=== PATIENT | male | born 1940 | race Caucasian/White ===

== ENCOUNTER → 2018-04-24 | Outpatient (CLI) | payer OTHER, MEDICARE ==
[~2018-04-24] MED LIST: CHOL100010 PO; Ensure PO; LEVO75TA PO; MULTCHW PO; NUTRTAB55 PO; OMEG10007 PO; VITA400C28 PO
--- NOTE | 2018-04-24 09:12 | DIAGNOSTIC IMAGING REPORT ---
EXAMINATION: RENAL ULTRASOUND CLINICAL HISTORY: Renal insufficiency COMPARISON STUDY: None FINDINGS: The right kidney measures 9.4 cm. The left kidney measures 10.9 cm. There is no evidence of hydronephrosis. There are multiple left renal cysts the largest of which measures 4 cm. There are bilateral echogenic foci. Small calculi must be considered. No bladder abnormalities are visualized. Bilateral ureteral jets were visualized. IMPRESSION : 1. No evidence of hydronephrosis 2. Left renal cysts 3. Equivocal nephrolithiasis Electronically signed by: Brandon Gimenez M.D. 04/24/2018 9:11 AM Dictated Date/Time: 04/24/2018 9:09 AM
== END | disposition home or self-care (01) ==
LOC: C.ULTR 08:25
PROVIDERS: ATTEND Student in an Organized Health Care Education/Training Program
DX: R31.9 Hematuria, unspecified (principal); N28.1 Cyst of kidney, acquired; Z88.0 Allergy status to penicillin

== ENCOUNTER 2020-01-27 18:39 | Inpatient (IN) ==
[2020-01-27] MEDS ORDERED: CEFEPIME 2,000 MG/20 ML VIAL IV STA (19:19)
[2020-01-27] MEDS ORDERED: SODIUM CHLORIDE 0.9% 500 ML IV SCH (19:30)
--- NOTE | 2020-01-27 19:41 | Emergency Department Note ---
History of Present Illness General Chief complaint: Referred by Doctor Stated complaint: PSEUDOMONAS AERUGINOSA Time Seen by Provider: 01/27/20 19:12 Source: patient Mode of arrival: ambulatory Limitations: no limitations History of Present Illness Provider complaint: UTI Maximum Pain Intensity: 4 This is an 79-year-old male who presents to the ED with a chief complaint of urinary symptoms. The patient had an outpatient urinalysis that showed that he had resistant urine infection with Pseudomonas. I did not have access to the culture but the patient was sent here for IV cefepime, admission and then arrangements for him to you for IV cefepime. The patient denies any fevers or vomiting. He has no other symptoms at this time. Home Medications Home Medications Medication Instructions Recorded Confirmed Type aspirin 81 mg PO QAM 07/22/19 01/27/20 History cholecalciferol (vitamin D3) 1,000 unit PO QAM 07/22/19 01/27/20 History [Vitamin D3] cyanocobalamin (vitamin B-12) 0 mcg PO QAM 07/22/19 01/27/20 History [Vitamin B-12] glucos sul [id number]-C-Mn 1 cap PO QAM 07/22/19 01/27/20 History [Glucosamine Chondroitin] [id number] serr 1 tab PO QAM 07/22/19 01/27/20 History [Osteo Bi-Flex (5-Loxin)] levothyroxine 75 mcg PO QAM 07/22/19 01/27/20 History vitamin E 400 unit PO QAM 07/22/19 01/27/20 History Allergies Allergy/AdvReac Type Severity Reaction Status Date / Time Penicillins Allergy Mild . 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) UTI (urinary tract infection) (Acute) Family History Other Family history non-contributory Social History Preferred Language: Sami marital status: Current Living Situation: Alone current occupational status: retired Feels Safe at Home: Yes Smoking Status: Never smoker Review of Systems A total of 10 systems reviewed and were otherwise negative Physical Exam Vital Signs Vital Signs - 24 hr 01/27/20 18:46 01/27/20 19:11 01/27/20 21:00 Temperature 36.8 C Temperature Source Oral Pulse Rate 93 H 79 Pulse Rate [Apical] 72 Pulse Rate from SpO2 Sensor 79 Respiratory Rate 20 18 19 Respiratory Effort / Characteristics Non-Labored Spontaneous Respiratory Depth Normal Normal Blood Pressure 123/77 132/71 Blood Pressure [Right Arm] 142/72 H Blood Pressure Mean 92 81 Blood Pressure Mean [Right Arm] 95 Blood Pressure Position Sitting Pulse Oximetry 98 96 98 Oxygen Delivery Method Room Air Room Air Room Air Sepsis Recent Fever Within 48 Hours No Sepsis Action Taken by Nursing No Action Required CONSTITUTIONAL/VITAL SIGNS: Reviewed / noted above. GENERAL: Non-toxic in appearance. INTEGUMENTARY: Warm, dry, and [place]. HEAD: Normocephalic. EYES: without scleral icterus or trauma. ENT/OROPHARYNX: clear and moist. LYMPHADENOPATHY/NECK: Is supple without lymphadenopathy or meningismus. RESPIRATORY: Lungs clear and equal. CARDIOVASCULAR: Regular rate and rhythm. GI/ABDOMEN: Soft and nontender. No organomegaly or pulsatile mass. No rebound or guarding. Normal bowel sounds. EXTREMITIES: Warm and well perfused. BACK: No CVA tenderness. NEUROLOGICAL: Intact without focal deficits. PSYCHIATRIC: normal affect. MUSCULOSKELETAL: Normally developed with good muscle tone. TRIAGE NURSING DOCUMENTATION REVIEWED. Course Administered Medications Discontinued Medications Sodium Chloride (Nss) 500 mls @ 999 mls/hr IV .Q31M ANGELA Stop: 01/27/20 20:00 Last Infusion: 01/27/20 20:16 Dose: 0 mls/hr Documented by: [id number] Admin: 01/27/20 19:45 Dose: 999 mls/hr Documented by: [id number] Cefepime HCl (Maxipime) 2,000 mg in 20 mls @ 5 mls/min IV NOW STA; Protocol Stop: 01/27/20 19:22 Last Admin: 01/27/20 19:44 Dose: 5 mls/min Documented by: [id number] Medical Decision Making Differential Diagnosis Differential includes UTI, sepsis, appendicitis, diverticulitis, constipation, bacteremia Medical Records Attestation: I reviewed the patient's medical records. Home Medications Current Medication List: was personally reviewed by me Laboratory Data Attestation: I reviewed the patient's lab results. Result diagrams: 01/27/20 19:36 01/27/20 19:36 Lab Results 01/27/20 01/27/20 01/27/20 Range/Units 19:36 19:36 20:30 WBC 6.26 (4.8-10.8) K/uL RBC 3.55 L (4.7-6.1) M/uL Hgb 11.0 L (14.0-18.0) g/dL Hct 33.3 L (42-52) % MCV 93.8 (80-100) fL MCH 31.0 (25-34) pg MCHC 33.0 (32-36) g/dL RDW Std Deviation 49.7 H (36.4-46.3) fL RDW Coeff of Heidi 14.5 (11.5-14.5) % Plt Count 245 (130-400) K/uL MPV 10.5 H (7.4-10.4) fL Immature Gran % (Auto) 0.2 % Neut % (Auto) 64.7 % Lymph % (Auto) 24.3 % Mobile % (Auto) 8.1 % Eos % (Auto) 2.2 % Baso % (Auto) 0.5 % Immature Gran # (Auto) 0.01 (0.00-0.02) K/uL Neut # (Auto) 4.05 (1.4-6.5) K/uL Lymph # (Auto) 1.52 (1.2-3.4) K/uL Mobile # (Auto) 0.51 (0.11-0.59) K/uL Eos # (Auto) 0.14 (0-0.5) K/uL Baso # (Auto) 0.03 (0-0.2) K/uL Sodium 143 (136-145) mmol/L Potassium 4.1 (3.5-5.1) mmol/L Chloride 111 H (98-107) mmol/L Carbon Dioxide 27 (21-32) mmol/L Anion Gap 5.0 (3-11) BUN 40 H (7-18) mg/dl Creatinine 1.22 (0.6-1.4) mg/dl Est Cr Clr Drug Dosing 43.6 ml/min Est GFR ( Amer) 64.5 Est GFR (Non-Af Amer) 55.6 BUN/Creatinine Ratio 32.7 H (10-20) Glucose 108 H (70-99) mg/dl Calcium 9.3 (8.5-10.1) mg/dl Total Bilirubin 0.8 (0.2-1) mg/dl AST 10 L (15-37) U/L ALT 15 (12-78) U/L Alkaline Phosphatase 76 (45-117) U/L Total Protein 6.9 (6.4-8.2) gm/dl Albumin 3.6 (3.4-5.0) gm/dl Globulin 3.3 (2.5-4.0) gm/dl Albumin/Globulin Ratio 1.1 (0.9-2) Lipase 163 (73-393) U/L Urine Color Yellow Urine Appearance Clear (Clear) Urine pH 5.0 (4.5-7.5) Ur Specific [place] 1.023 (1.000-1.030) Urine Protein Negative (Negative) Urine Glucose (UA) Negative (Negative) Urine Ketones Negative (Negative) Urine Blood Trace H (Negative) Urine Nitrite Negative (Negative) Urine Bilirubin Negative (Negative) Urine Urobilinogen Negative (Negative) Ur Leukocyte Esterase 2+ H (Negative) Urine WBC (Auto) >30 H (0-5) /hpf Urine RBC (Auto) 0-4 (0-4) /hpf U Hyaline Cast (Auto) 5-10 H (0-5) /lpf U Epithel Cells (Auto) 0-5 (0-5) /lpf Urine Bacteria (Auto) Negative (Negative) Blood Pressure Blood Pressure Findings: Normal blood pressure MDM Narrative This is an 79-year-old male who presents to the ED with a chief complaint of urinary symptoms. The patient had an outpatient urinalysis that showed that he had resistant urine infection with Pseudomonas. I did not have access to the culture but the patient was sent here for IV cefepime, admission and then arrangements for him to you for IV cefepime. The patient denies any fevers or vomiting. He has no other symptoms at this time. Patient's vital signs are normal. His exam was unremarkable. The patient CBC and chemistry panel was unremarkable. The BUN was elevated at 40. Urine is suggestive of infection. The patient was started on IV cefepime. He was also given some IV fluids. He will be seen by the hospitalist for further inpatient evaluation and care. Impression & Plan Acute UTI Discharge Plan Visit Data Chief Complaint: Referred by Doctor Stated Complaint: PSEUDOMONAS AERUGINOSA ED Provider: Ruslan Sky Discharge Problem: Acute UTI Patient Disposition: Being Evaluated by Hospitalist Forms Stand Alone Forms: [facility] Prescriptions Prescriptions: No Action cyanocobalamin (vitamin B-12) [Vitamin B-12] 1,000 mcg Tablet Extended Release 0 mcg PO QAM RF: 0 aspirin 81 mg Tablet,Delayed Release (Dr/Ec) 81 mg PO QAM RF: 0 levothyroxine 75 mcg tablet 75 mcg PO QAM RF: 0 vitamin E 400 unit Capsule 400 unit PO QAM RF: 0 cholecalciferol (vitamin D3) [Vitamin D3] 1,000 unit Capsule 1,000 unit PO QAM RF: 0 [id number] serr [Osteo Bi-Flex (5-Loxin)] 1,500-400-100 mg-unit-mg Tablet 1 tab PO QAM RF: 0 Glucosamine Chondroitin 550-30-1 mg Capsule 1 cap PO QAM RF: 0 Referrals Referrals: Saulo Pan MD [Primary Care Provider] -
[2020-01-27 20:02] LABS: Basophils # (auto) 0.03 K/uL (0-0.2); Basophils % (auto) 0.5 %; Eosinophils # (auto) 0.14 K/uL (0-0.5); Eosinophils % (auto) 2.2 %; Hematocrit (blood only) 33.3 % (42-52); Immature Granulocytes # (auto) 0.01 K/uL (0.00-0.02); Immature Granulocytes % (auto) 0.2 %; Lymphocytes # (auto) 1.52 K/uL (1.2-3.4); Lymphocytes % (auto) 24.3 %; Mean Corpuscular Volume 93.8 fL (80-100); Mean Platelet Volume 10.5 fL (7.4-10.4); Monocytes # (auto) 0.51 K/uL (0.11-0.59); Monocytes % (auto) 8.1 %; Neutrophils # (auto) 4.05 K/uL (1.4-6.5); Neutrophils % (auto) 64.7 %; Platelet Count 245 K/uL (130-400); RDW Coefficient of Variation 14.5 % (11.5-14.5); RDW Standard Deviation 49.7 fL (36.4-46.3); Red Blood Count 3.55 M/uL (4.7-6.1); White Blood Count 6.26 K/uL (4.8-10.8)
[2020-01-27 20:21] LABS: Albumin Level 3.6 gm/dl (3.4-5.0); BUN Creatinine Ratio 32.7 (10-20); Calcium 9.3 mg/dl (8.5-10.1); Creatinine Clr Calc Pharmacy 43.6 ml/min; Est GFR (African American) 64.5; Est GFR (Non-African American) 55.6; Potassium 4.1 mmol/L (3.5-5.1)
[2020-01-27 20:24] LABS: Albumin Globulin Ratio 1.1 (0.9-2); Bilirubin,Total 0.8 mg/dl (0.2-1); Globulin 3.3 gm/dl (2.5-4.0); Total Protein 6.9 gm/dl (6.4-8.2)
[2020-01-27 20:43] LABS: Appearance Urine Clear (Clear); Bacteria Urine Automated Negative (Negative); Bilirubin Urine Negative (Negative); Blood Urine Trace (Negative); Color Urine Yellow; Epithelial Cell Urine Auto 0-5 /lpf (0-5); Glucose Urine UA Negative (Negative); Ketones Urine Negative (Negative); Leukocyte Esterase Urine 2+ (Negative); Nitrite Urine Negative (Negative); Protein Urine Negative (Negative); RBC Urine Automated 0-4 /hpf (0-4); Specific Gravity Urine 1.023 (1.000-1.030); Urobilinogen Urine Negative (Negative); WBC Urine Automated >30 /hpf (0-5)
--- NOTE | 2020-01-27 22:53 | History & Physical Report ---
Date of Service January 27, 2020 Assessment & Plan (1) Hypertension: Arnulfo Modi is an 79 year old man with a PMH of kidney stones and pseudomonas UTI's who presents with a pseudomonas UTI UTI Pseudomonas resistant to levaquin has been treated with cefipime in the past Likely secondary to stones and obstructions that he's dealt with for some time. Will re image abdomen today Will continue cefipime 2 g BID Consented for PICC line, BID administration of cefepime could prove challenging but hopefully can get administrations in ED or through home health at home Case management consulted Dehydration Elevated BUN, patient dry on examination Likely secondary to diarrhea and decreased PO intake will give IV fluids to help rehydrate DVT PPx: Lovenox F/E/N: 1/2 nSS at 80 mls hour Dispo: Med Surg for tonight WIll need to have PICC line and outpatient antibiotic administration organized prior to discharge hopefully tomorrow (2) UTI (urinary tract infection): (3) Diarrhea: (4) Dehydration: History of Present Illness Chief Complaint: Sent from PCP's office Primary Care Provider: Saulo Pan MD Arnulfo Modi is an 79 year old man with a past medical history significant for head an neck cancer, constipation, recurrent kidney stones, and complicated UTI with pseudomonas resistant to levaquin. He was seeing his PCP about back pain and weakness fatigue. PCP ordered a UA which was positive and urine culture which showed pseudomonas resistant to levaquin. He was advised to present to emergency department for IV cefepime. He reticently agreed. On presentation to ED he is afebrile, vitals WNL, he feels weak and he has some discomfort with urination, urine culture re ordered, no flank pain at this time. He tells me when he first felt off he initially thought it was constipation which he has had in the past, but then he started to develop some diarrhea which has continued to the point where he is not continent. He is currently wearing a diaper. He denies any blood/melena or abdominal pain He feels this may be getting better. Labwork significant for anemia with hemoglobin of 11, Elevated BUN with normal creatinine and positive UA. Adamant that he wants to get out of here as soon as possible. Will need help arranging outpatient antibiotic administration. He has had a PICC line in past and had treatment [facility]. 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 Allergies Allergy/AdvReac Type Severity Reaction Status Date / Time Penicillins Allergy Mild . Verified 01/27/20 20:27 Home Medications Home Medications Medication Instructions Recorded Confirmed Type Glucosamine Chondroitin 1 cap PO QAM 07/22/19 01/27/20 History cholecalciferol (vitamin D3) 1,000 unit PO QAM 07/22/19 01/27/20 History [Vitamin D3] cyanocobalamin (vitamin B-12) 0 mcg PO QAM 07/22/19 01/27/20 History [Vitamin B-12] [id number] serr 1 tab PO QAM 07/22/19 01/27/20 History [Osteo Bi-Flex (5-Loxin)] levothyroxine 75 mcg PO QAM 07/22/19 01/27/20 History vitamin E 400 unit PO QAM 07/22/19 01/27/20 History ciprofloxacin HCl 500 mg PO BID #14 tab 01/28/20 Rx metronidazole 500 mg PO TID #21 tab 01/28/20 Rx Past Med/Surg History Medical History 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) UTI (urinary tract infection) (Acute) Family History Other Family history non-contributory Social History Preferred Language: Burmese Communication Ability: Effective Nailhead Puncher Required: No Beliefs That Will Affect Care: None marital status: Current Living Situation: Alone current occupational status: retired Other Information That Helps Us Care for You: No Feels Safe at Home: Yes Safety Concerns: Feels Safe At This Time Smoking Status: Never smoker Do You Dip or Chew Tobacco: No ; Second Hand Exposure: No ; Tobacco Cessation Education Requested by Patient: No Hx Alcohol Use: No Hx Substance Use: No Review of Systems Constitutional: + fatigue, + weakness and + anorexia; no fever, no chills, no sweats and no body aches Eyes: no problem reported Ear, Nose, Mouth, Throat: no problem reported Respiratory: no cough, no chest congestion, no dyspnea and no wheezing Cardiovascular: no chest pain, no dyspnea, no palpitations, no lightheadedness, no syncope, no edema and no calf pain Gastrointestinal: + diarrhea/loose stools; no abdominal pain, no nausea, no vomiting, no blood in stools and no melena Genitourinary: + dysuria and + urinary frequency Musculoskeletal: + back pain Physical Exam Constitutional: well developed; no acute distress Eyes: PERRL, conjunctivae normal, anicteric sclerae ENMT: external ear and nose normal, oropharynx normal Respiratory: normal respiratory effort, lungs clear to auscultation Cardiovascular: RRR, no murmur, no edema Gastrointestinal (Abdomen): normal bowel sounds, soft, nontender, no hepatosplenomegaly Musculoskeletal: no cyanosis or clubbing, extremities motor strength 5/5 Skin: no rashes, warm and dry Results & Data Results & Data ([facility]) Vital Signs (Past 12 Hours) Vital Signs Temp Pulse Pulse Resp BP BP Pulse Ox 01/27/20 21:00 72 19 142/72 H 98 01/27/20 19:11 79 18 132/71 96 01/27/20 18:46 36.8 C 93 H 20 123/77 98 Supervising Physician Co-Signing Physician Notes Attending addendum: I have physically seen this patient, have supervised the medical residents activities, and agree with the H&P unless as otherwise noted. Assessment and Plan: Recurrent Pseudomonas UTI- Reportedly had been resistant to Levaquin in the past and had been treated with cefepime. Attempting to get previous records but unavailable at this time. Follow urine culture sensitivity. IV fluids. PICC line Imaging to assess for possible abscess. Remainder of orders and notations as noted. Resident Activity Tracking Resident Involvement: Resident Care Provided Care Provided: Adult [facility] Medicine
[2020-01-27] MEDS ORDERED: ACETAMINOPHEN 325 MG TAB PO PRN (23:31)
[2020-01-27] MEDS ORDERED: ALUMINUM/MAGNESIUM SUSP 30 ML UDC PO PRN (23:31)
[2020-01-27] MEDS ORDERED: ONDANSETRON INJ 2 MG/ML 2 ML VIAL IV PRN (23:31)
[2020-01-27] MEDS ORDERED: POLYETHYLENE (MIRALAX) 17 GM PACK PO PRN (23:31)
[2020-01-28] MEDS: SODIUM CHLORIDE 0.9% 1000ML 1,000 ML IV SCH ×2 (00:10→05:49)
[2020-01-28] MEDS ORDERED: LEVOTHYROXINE SODIUM 75 MCG TABLET PO SCH (06:30)
[2020-01-28] MEDS ORDERED: CEFEPIME 2,000 MG in SYRINGE 7.5 ML IV SCH (08:00)
[2020-01-28] MEDS ORDERED: GLUCOSAMINE D3 BOSWELLIA SERR PO SCH (09:00)
[2020-01-28] MEDS ORDERED: GLUCOSAMINE SULFATE 500 MG CAP PO SCH (09:00)
[2020-01-28] MEDS ORDERED: TOCOPHERYL, DL-ALPHA 400 UNITS CAP PO SCH (09:00)
[2020-01-28] MEDS ORDERED: CHOLECALCIFEROL 1,000 UNITS 25 MCG TAB PO SCH (09:00)
[2020-01-28] MEDS ORDERED: ASPIRIN 81 MG ECTAB PO SCH (09:00)
--- NOTE | 2020-01-28 09:50 | CT Scan Report ---
CT SCAN OF THE ABDOMEN AND PELVIS WITHOUT CONTRAST CLINICAL HISTORY: uti with back pain, history of stones COMPARISON STUDY: No previous studies for comparison. TECHNIQUE: CT scan of the abdomen and pelvis was performed from the lung bases to the proximal femurs . Images are reviewed in the axial, sagittal, and coronal planes. IV contrast was not administered fo r this examination. A dose lowering technique was utilized adhering to the principles of ALARA. CT DOSE: 536.94 mGycm FINDINGS: Lower chest: There is mild dilatation of the ascending thoracic aorta which measures 44 mm. There are mild dependent atelectatic changes. Liver: The unenhanced liver is normal in size, contour, and attenuation. There is no intrahepatic ad iary ductal dilatation. Gallbladder: Cholelithiasis Spleen: Normal in size and attenuation. Pancreas: Unremarkable. Adrenal glands: Unremarkable. Kidneys: There are multiple bilateral nonobstructing renal calculi. There is a 47 mm left renal cyst. There is a 24 mm left renal cyst. There is a 7 mm hyperdense left renal cyst. No ureteral or bladder calculi are visualized. Bowel: There are no transition zones to indicate bowel obstruction. There is moderate stool within th e rectum, with minimal associated rectal wall thickening.. There is colonic diverticulosis. There is mild infiltration of peridiverticular fat within the sigmoid indicative of acute diverticulitis. Peritoneum: There is no intraperitoneal free air or abdominal ascites. There is a fat-containing righ t inguinal hernia. There is a small fat-containing umbilical hernia. Vasculature: The abdominal aorta is normal in course and caliber. There is a retroaortic left renal v ein Adenopathy: None. Pelvic viscera: The bladder, and pelvic viscera are unremarkable. Skeletal structures: No destructive osseous lesions are seen. IMPRESSION: 1. Acute sigmoid diverticulitis. No evidence of abscess. This finding will be called to the referring physician. 2. Bilateral nephrolithiasis. No hydronephrosis. No ureteral or bladder calculi identified. ACT 112: Negative or not required by law. Electronically signed by: Brandon Gimenez M.D. 01/28/2020 9:49 AM
[2020-01-28] MEDS ORDERED: metroNIDAZOLE 500 MG/100 ML BAG IV SCH (11:00)
[2020-01-28 11:25] LABS: Basophils # (auto) 0.03 K/uL (0-0.2); Basophils % (auto) 0.4 %; Eosinophils # (auto) 0.11 K/uL (0-0.5); Eosinophils % (auto) 1.6 %; Hemoglobin 10.1 g/dL (14.0-18.0); Immature Granulocytes # (auto) 0.01 K/uL (0.00-0.02); Immature Granulocytes % (auto) 0.1 %; Lymphocytes # (auto) 0.99 K/uL (1.2-3.4); Lymphocytes % (auto) 14.1 %; Mean Corpuscular Hemoglobin 30.9 pg (25-34); Mean Corpuscular Hgb Conc 32.6 g/dL (32-36); Mean Corpuscular Volume 94.8 fL (80-100); Mean Platelet Volume 10.4 fL (7.4-10.4); Monocytes # (auto) 0.81 K/uL (0.11-0.59); Monocytes % (auto) 11.5 %; Neutrophils # (auto) 5.08 K/uL (1.4-6.5); Neutrophils % (auto) 72.3 %; Platelet Count 207 K/uL (130-400); RDW Coefficient of Variation 14.6 % (11.5-14.5); RDW Standard Deviation 50.1 fL (36.4-46.3); Red Blood Count 3.27 M/uL (4.7-6.1); White Blood Count 7.03 K/uL (4.8-10.8)
[2020-01-28 11:47] LABS: Calcium 8.8 mg/dl (8.5-10.1); Creatinine Clr Calc Pharmacy 51.6 ml/min; Est GFR (African American) 79.1; Est GFR (Non-African American) 68.3; Potassium 4.1 mmol/L (3.5-5.1)
[2020-01-28] MEDS ORDERED: CIPROFLOXACIN / D5W 400 MG/200 ML BAG IV SCH (13:00)
--- NOTE | 2020-01-28 14:12 | Discharge Summary ---
Date of Service January 28, 2020 Admission HPI Per Admitting Provider Arnulfo Modi is an 79 year old man with a past medical history significant for head an neck cancer, constipation, recurrent kidney stones, and complicated UTI with pseudomonas resistant to levaquin. He was seeing his PCP about back pain and weakness fatigue. PCP ordered a UA which was positive and urine culture which showed pseudomonas resistant to levaquin. He was advised to present to emergency department for IV cefepime. He reticently agreed. On presentation to ED he is afebrile, vitals WNL, he feels weak and he has some discomfort with urination, urine culture re ordered, no flank pain at this time. He tells me when he first felt off he initially thought it was constipation which he has had in the past, but then he started to develop some diarrhea which has continued to the point where he is not continent. He is currently wearing a diaper. He denies any blood/melena or abdominal pain He feels this may be getting better. Labwork significant for anemia with hemoglobin of 11, Elevated BUN with normal creatinine and positive UA. Adamant that he wants to get out of here as soon as possible. Will need help arranging outpatient antibiotic administration. He has had a PICC line in past and had treatment [facility]. 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 Principal Diagnosis Acute diverticulitis Discharge Exam Constitutional WD/WN, vitals as above Respiratory normal respiratory effort, lungs clear to auscultation Cardiovascular RRR, no murmur, no edema Gastrointestinal (Abdomen) Inspection/Auscultation: abdomen normal to inspection and normal bowel sounds; abdomen not distended Percussion/Palpation: abdomen soft; abdomen nontender Musculoskeletal no cyanosis or clubbing, extremities motor strength 5/5 Skin no rashes, warm and dry Neurologic moves all extremities and awake Psychiatric A+Ox3, euthymic affect Discharge Data Allergies Allergy/AdvReac Type Severity Reaction Status Date / Time Penicillins Allergy Mild . Verified 01/27/20 20:27 Consultations 01/27/20 20:56 ED Decision to Admit Stat 01/27/20 23:31 Consult Case Management - Discharge Planning Routine Ordered Studies 01/28/20 09:30 CT abd pelvis wo con Routine Hospital Course (1) Acute diverticulitis: As seen on CT - acute sigmoid diverticulitis. No evidence of abscess. Will start on metronidazole and ciprofloxaxin for a total of 7 days Patient is pretty adamant that he get home today and that he does not want to stay in the hospital another night. He is concerned about exposure to COVID here in the hospital. I think given that he is afebrile, has no leukocytosis, and no abdominal pain that being treated at home is reasonable. I would like him to see his doctor within the next couple of days for close follow up (2) Dehydration: Provided IVF, BUN improved (3) Asymptomatic bacteriuria: Though patient grew pseudomonas in his urine at his pcp's office, and is growing gram negative here, I believe this represents asymptomatic bacteriuria. He does not particularly have urinary symptoms - no burning or pain with urination or hesitancy. His abdominal symptoms of vague pressure can be attributed to his diverticulitis. I do not think this needs to be treated. Per patient, he is a known colonizer of pseudomonas and has been to see a urologist in [place] in the past. (4) Dark stools: Patient reported but he has been mostly constipated until the last couple of days when it changed to diarrhea. He does take iron which could be discoloring his stool Please see below (5) Anemia: Unclear source, as discussed above he has been having dark stools but he takes iron supplementation Hold aspirin and iron for now Blood count decreased by a gram since yesterday to 10, but this may be dilutional as he received IVF. His MCV is high normal He should recheck his blood count with his pcp at his follow up visit Total Time Total Time Spent Total Time Spent (In Minutes): greater than 30 minutes Discharge Plan Discharge Items Patient Disposition: Home - Self-Care Reason For Visit: PSEUDOMONAS UTI Discharge Diagnosis: Acute diverticulitis Activity: Resume your previous activity Non-emergency contact: Primary Care Provider Call non-emergency contact if: you have any medication questions Follow-up/Referrals: Saulo Pan MD [Primary Care Provider] - (Close follow up - please schedule Sunday if possible ) Diet: Regular Addtl Attending Provider Instructions: A CT of your abdomen showed that you have acute sigmoid colon diverticulitis. Initially there was concern for a urinary tract infection but at this point I think your symptoms are due to your bowel infection and that you are a pseudomonas colonizer in your urinary tract rather than experiencing a true infection there. The CT of your abdomen and pelvis did not show any inflammation in your urinary tract. You will take ciprofloxacin and metronidazole for the diverticulitis for seven days. You may want to eat a liquid diet for the next couple of days until your symptoms have resolved and then slowly advance to a high fiber diet. Make sure you are drinking plenty of fluids Please hold your aspirin and iron supplements until you follow up with your primary care provider. The iron may be causing your stools to darken. If the dark stools persist after this your doctor may want you to see a healthcare liaison to assess for bleeding. Your blood count only decreased minimally here at the hospital. Discuss rechecking your hemoglobin with your doctor. If you begin to have more frequent stools or stools appear tarry or frankly bloody please call your doctor right away. If you begin running a fever, have increased abdominal pain or vomiting or are feeling worse you should call your doctor or return to the emergency room. You should follow up with Dr. Pan this week if possible. Pending Studies at Discharge: No Stand-Alone Forms: My [facility] Hers, Smoking Cessation Medications and DC Order Prescriptions: New ciprofloxacin HCl 500 mg tablet 500 mg PO BID Qty: 14 RF: 0 metronidazole 500 mg tablet 500 mg PO TID Qty: 21 RF: 0 Continued cyanocobalamin (vitamin B-12) [Vitamin B-12] 1,000 mcg Tablet Extended Release 0 mcg PO QAM RF: 0 levothyroxine 75 mcg tablet 75 mcg PO QAM RF: 0 vitamin E 400 unit Capsule 400 unit PO QAM RF: 0 cholecalciferol (vitamin D3) [Vitamin D3] 1,000 unit Capsule 1,000 unit PO QAM RF: 0 [id number] serr [Osteo Bi-Flex (5-Loxin)] 1,500-400-100 mg-unit-mg Tablet 1 tab PO QAM RF: 0 Glucosamine Chondroitin 550-30-1 mg Capsule 1 cap PO QAM RF: 0 Discontinued aspirin 81 mg Tablet,Delayed Release (Dr/Ec) 81 mg PO QAM RF: 0 Discharge Orders: Discharge Order (Routine); Ordered 01/28/20 Ordered By: Molly Ware/Other Patient Handouts: Diverticulosis Diverticulitis Admission Data Admit Date/Time: 01/27/20 21:46 Attending Provider: Toni Feldman Admit Provider: Richy Forman Primary Care Provider: Saulo Pan Other Providers: Toni Feldman ; Phoebe,Sydnix Coding Level of Care Code D/C Day Management >30 mins Diagnoses Acute diverticulitis K57.92 Dehydration E86.0 Asymptomatic bacteriuria R82.71 Dark stools R19.5 Anemia D64.9
--- NOTE | 2020-01-29 01:18 | Billing Data ---
Date of Service January 29, 2020 Coding Level of Care Code 26346 OBS Care - Level 3
== END 2020-01-28 16:00 | disposition home or self-care (01) | DRG 392 ==
LOC: ED 18:39 → SUATTDRO 21:46 → 3N 21:46

== ENCOUNTER 2021-07-08 16:22 | Inpatient (IN) ==
[2021-07-08 19:33] LABS: Basophils # (auto) 0.03 K/uL (0-0.2); Basophils % (auto) 0.5 %; Eosinophils # (auto) 0.18 K/uL (0-0.5); Eosinophils % (auto) 3.1 %; Hematocrit (blood only) 43.1 % (42-52); Hemoglobin 14.3 g/dL (14.0-18.0); Immature Granulocytes # (auto) 0.01 K/uL (0.00-0.02); Immature Granulocytes % (auto) 0.2 %; Lymphocytes % (auto) 27.8 %; Mean Corpuscular Hemoglobin 30.8 pg (25-34); Mean Corpuscular Hgb Conc 33.2 g/dL (32-36); Mean Corpuscular Volume 92.9 fL (80-100); Mean Platelet Volume 10.2 fL (7.4-10.4); Monocytes # (auto) 0.63 K/uL (0.11-0.59); Neutrophils % (auto) 57.4 %; Platelet Count 248 K/uL (130-400); RDW Coefficient of Variation 14.6 % (11.5-14.5); RDW Standard Deviation 49.6 fL (36.4-46.3); Red Blood Count 4.64 M/uL (4.7-6.1); White Blood Count 5.75 K/uL (4.8-10.8)
[2021-07-08] MEDS ORDERED: MEROPENEM CONSULT ACTIVE PRN (19:42)
[2021-07-08] MEDS ORDERED: SODIUM CHLORIDE 0.9% 1000ML 500 ML IV ONE (19:42)
[2021-07-08] MEDS ORDERED: MEROPENEM 500 MG in SYRINGE 0 ML IV STA (19:42)
--- NOTE | 2021-07-08 19:47 | Emergency Department Note ---
Impression & Plan Acute left flank pain, Acute pyelonephritis, Failure of outpatient treatment ED Provider Note NAME: RANDY CASAS AGE: 81 SEX: M : 1940 ARRIVES VIA: Walk-In INFORMANT: [Patient] ED PROVIDER(S): [Alfred Bonilla MD] CHIEF COMPLAINT: Abnormal labs HISTORY OF PRESENT ILLNESS: The patient is an 81-year-old male who recently has been having issues with a urinary infection. He has been on IV cefepime 2 times in the last month for a resistant UTI. He is growing Pseudomonas. The patient states that he had urine testing done in his doctor's office about 3 days ago. He was called today and he still has the infection. He was referred to the ER. Patient has had some intermittent left flank pain. The pain is a 5/10. He does have urgency to urinate, no burning to urinate. He has not had fever or vomiting. He has not really have any abdominal pain. He is here for a different IV antibiotic. REVIEW OF SYSTEMS: See HPI for pertinent positives and negatives. A total of ten systems were reviewed and were otherwise negative. PMHx/PSHx: See Below SOCIAL HISTORY: See Below. PHYSICAL EXAM: GENERAL: Patient is in no acute distress. HEENT: No acute trauma, normocephalic atraumatic, mucous membranes moist, no nasal congestion, no scleral icterus. NECK: No stridor, no adenopathy, no meningismus, trachea is midline. LUNGS: Clear to auscultation bilaterally, no wheeze, no rhonchi, breath sounds equal. HEART: Without murmurs gallops or rubs, regular rate and rhythm. ABDOMEN: Soft, nontender, bowel sounds positive, no hernias, no peritonitis. EXTREMITIES: No cyanosis or edema, full range of motion of all the joints without pain or difficulty, no signs for acute trauma. NEUROLOGIC: Oriented x 3, no acute motor or sensory deficits, no focal weakness. SKIN: No rash, no jaundice, no diaphoresis. Back: No flank discomfort to percussion. DIFFERENTIAL DIAGNOSIS: Pyelonephritis, UTI, hydronephrosis, renal colic, urinary obstruction, renal failure, electrolyte imbalance, dehydration, failed outpatient treatment, among others. EMERGENCY DEPARTMENT COURSE/PROCEDURES: MEDICAL DECISION MAKING: There is no leukocytosis or concerning anemia. There is a normal platelet count. No significant electrolyte abnormality or kidney failure. Alk phos was slightly elevated, the bilirubin was normal. Urinalysis does suggest infection. Covid testing is pending. Abdominal and pelvis CT shows some stones within the kidneys themselves, no ureteral obstruction, no hydronephrosis, no bowel obstruction. The patient received IV meropenem as antibiotic coverage. This should be sufficient to treat the UTI based on the culture results from last month. The patient was given a 500 cc saline bolus. Patient presents with a persistent/recurrent UTI/pyelonephritis. He is having some left flank pain. He has been on 2 IV courses of cefepime. At this point, I do think a hospital stay is warranted. I did speak with the patient and residential case manager. The on-call hospitalist was consulted. Past Med/Surg History Medical History Head and neck cancer Kidney stone on left side Primary head and neck soft tissue sarcoma UTI (urinary tract infection) Family History Other Family history non-contributory Social History Smoking Status: Never smoker Tobacco Type: Cigarettes Second Hand Exposure: No; Hx Alcohol Use: No Hx Substance Use: No Preferred Language: Azeri Communication Ability: Effective Genetics Teacher Required: No Beliefs That Will Affect Care: None marital status: Current Living Situation: Alone current occupational status: retired Feels Safe at Home: Yes Assistive Devices: Glasses Allergies Allergies Allergy/AdvReac Type Severity Reaction Status Date / Time Penicillins Allergy Mild . Verified 07/08/21 20:49 Home Meds Home Medications Medication Instructions Recorded Confirmed levothyroxine 112 mcg tablet 112 mcg PO DAILY 07/08/21 07/08/21 Results & Data (ED) Vital Signs Vital Signs - 24 hr 07/08/21 17:01 07/08/21 20:59 Temperature 36.7 C Temperature Source Oral Pulse Rate 74 Pulse Rate [Finger] 66 Respiratory Rate 20 18 Respiratory Effort / Characteristics Non-Labored Spontaneous Non-Labored Spontaneous Respiratory Depth Normal Normal Respiratory Pattern Regular Blood Pressure 177/71 H Blood Pressure [Right Arm] 188/85 H Blood Pressure Mean 106 Blood Pressure Mean [Right Arm] 119 Pulse Oximetry 97 97 Oxygen Delivery Method Room Air Room Air Sepsis Recent Fever Within 48 Hours No Sepsis New/Unexplained Change in Mental Status N/A Sepsis Action Taken by Nursing No Action Required Home Medications Current Medication List: was personally reviewed by me Laboratory Data Attestation: I reviewed the patient's lab results. Result diagrams: 07/08/21 19:22 07/08/21 19:22 Lab Results 07/08/21 07/08/21 07/08/21 Range/Units 19:22 19:22 19:49 WBC 5.75 (4.8-10.8) K/uL RBC 4.64 L (4.7-6.1) M/uL Hgb 14.3 (14.0-18.0) g/dL Hct 43.1 (42-52) % MCV 92.9 (80-100) fL MCH 30.8 (25-34) pg MCHC 33.2 (32-36) g/dL RDW Std Deviation 49.6 H (36.4-46.3) fL RDW Coeff of Heidi 14.6 H (11.5-14.5) % Plt Count 248 (130-400) K/uL MPV 10.2 (7.4-10.4) fL Immature Gran % (Auto) 0.2 % Neut % (Auto) 57.4 % Lymph % (Auto) 27.8 % [place] % (Auto) 11.0 % Eos % (Auto) 3.1 % Baso % (Auto) 0.5 % Neut # (Auto) 3.30 (1.4-6.5) K/uL Lymph # (Auto) 1.60 (1.2-3.4) K/uL [place] # (Auto) 0.63 H (0.11-0.59) K/uL Eos # (Auto) 0.18 (0-0.5) K/uL Baso # (Auto) 0.03 (0-0.2) K/uL Immature Gran # (Auto) 0.01 (0.00-0.02) K/uL Sodium 138 (136-145) mmol/L Potassium 4.3 (3.5-5.1) mmol/L Chloride 105 (98-107) mmol/L Carbon Dioxide 29 (21-32) mmol/L Anion Gap 4.0 (3-11) BUN 18 (7-18) mg/dl Creatinine 1.22 (0.6-1.4) mg/dl Est Cr Clr Drug Dosing 45.8 ml/min Est GFR ( Amer) 63.6 ml/min Est GFR (Non-Af Amer) 54.9 ml/min BUN/Creatinine Ratio 15.1 (10-20) Glucose 73 (70-99) mg/dl Calcium 9.4 (8.5-10.1) mg/dl Total Bilirubin 0.9 (0.2-1) mg/dl AST 14 L (15-37) U/L ALT 13 (12-78) U/L Alkaline Phosphatase 134 H (45-117) U/L Total Protein 7.6 (6.4-8.2) gm/dl Albumin 3.9 (3.4-5.0) gm/dl Globulin 3.7 (2.5-4.0) gm/dl Albumin/Globulin Ratio 1.1 (0.9-2) Urine Color Yellow Urine Appearance Clear (Clear) Urine pH 6.0 (4.5-7.5) Ur Specific [place] 1.018 (1.000-1.030) Urine Protein Negative (Negative) Urine Glucose (UA) Negative (Negative) Urine Ketones Negative (Negative) Urine Blood Negative (Negative) Urine Nitrite Positive A (Negative) Urine Bilirubin Negative (Negative) Urine Urobilinogen Negative (Negative) Ur Leukocyte Esterase 1+ H (Negative) Urine WBC (Auto) >30 H (0-5) /hpf Urine RBC (Auto) 0-4 (0-4) /hpf U Hyaline Cast (Auto) 10-30 H (0-5) /lpf U Epithel Cells (Auto) 0-5 (0-5) /lpf Urine Bacteria (Auto) 2+ H (Negative) COVID-19 Eval Order 07/08/21 Range/Units 23:49 WBC (4.8-10.8) K/uL RBC (4.7-6.1) M/uL Hgb (14.0-18.0) g/dL Hct (42-52) % MCV (80-100) fL MCH (25-34) pg MCHC (32-36) g/dL RDW Std Deviation (36.4-46.3) fL RDW Coeff of Heidi (11.5-14.5) % Plt Count (130-400) K/uL MPV (7.4-10.4) fL Immature Gran % (Auto) % Neut % (Auto) % Lymph % (Auto) % [place] % (Auto) % Eos % (Auto) % Baso % (Auto) % Neut # (Auto) (1.4-6.5) K/uL Lymph # (Auto) (1.2-3.4) K/uL [place] # (Auto) (0.11-0.59) K/uL Eos # (Auto) (0-0.5) K/uL Baso # (Auto) (0-0.2) K/uL Immature Gran # (Auto) (0.00-0.02) K/uL Sodium (136-145) mmol/L Potassium (3.5-5.1) mmol/L Chloride (98-107) mmol/L Carbon Dioxide (21-32) mmol/L Anion Gap (3-11) BUN (7-18) mg/dl Creatinine (0.6-1.4) mg/dl Est Cr Clr Drug Dosing ml/min Est GFR ( Amer) ml/min Est GFR (Non-Af Amer) ml/min BUN/Creatinine Ratio (10-20) Glucose (70-99) mg/dl Calcium (8.5-10.1) mg/dl Total Bilirubin (0.2-1) mg/dl AST (15-37) U/L ALT (12-78) U/L Alkaline Phosphatase (45-117) U/L Total Protein (6.4-8.2) gm/dl Albumin (3.4-5.0) gm/dl Globulin (2.5-4.0) gm/dl Albumin/Globulin Ratio (0.9-2) Urine Color Urine Appearance (Clear) Urine pH (4.5-7.5) Ur Specific [place] (1.000-1.030) Urine Protein (Negative) Urine Glucose (UA) (Negative) Urine Ketones (Negative) Urine Blood (Negative) Urine Nitrite (Negative) Urine Bilirubin (Negative) Urine Urobilinogen (Negative) Ur Leukocyte Esterase (Negative) Urine WBC (Auto) (0-5) /hpf Urine RBC (Auto) (0-4) /hpf U Hyaline Cast (Auto) (0-5) /lpf U Epithel Cells (Auto) (0-5) /lpf Urine Bacteria (Auto) (Negative) COVID-19 Eval Order Covid19 at [facility] Administered Medications Discontinued Medications Sodium Chloride (Nss 1000ml) 500 mls @ 999 mls/hr IV .Q31M ONE Stop: 07/08/21 20:12 Last Infusion: 07/08/21 21:43 Dose: 0 mls/hr Documented by: [id number] Admin: 07/08/21 21:07 Dose: 999 mls/hr Documented by: [id number] Meropenem 500 mg/ Syringe 10 mls @ 2 mls/min IV NOW STA; Protocol Stop: 07/08/21 19:46 Last Admin: 07/08/21 21:12 Dose: 2 mls/min Documented by: [id number] Imaging Data Radiologist's Impression: Abdomen/Pelvis CT 07/08/21 19:42 CT OF THE ABDOMEN AND PELVIS WITHOUT CONTRAST CLINICAL HISTORY: Left flank pain. COMPARISON STUDY: CT of the abdomen and pelvis January 28, 2020. KUB February 28, 2021. TECHNIQUE: Axial images of the abdomen and pelvis were obtained without IV contrast. Images were reviewed in the axial, sagittal, and coronal planes. Automated exposure control was utilized for the study. A dose lowering technique was utilized adhering to the principles of ALARA. FINDINGS: Lung bases are unremarkable. There is hyperdense material within the gallbladder. Calcified focus within the gallbladder is noted. There is no convincing evidence for acute cholecystitis. Unenhanced images of the spleen, adrenal glands and pancreas are unremarkable. There is no biliary or pancreatic ductal dilatation. Multiple bilateral renal calculi measure up to 4 mm. There are no ureteral calculi. There is no hydronephrosis. A water attenuation left renal lesions are suboptimally assessed on this unenhanced exam but favor cysts. There may be a hyperdense cyst within the midpole of the left kidney. Right inguinal hernia contains the right anterior aspect of the bladder. Moderate amount stool within the rectum is noted. This extensive colonic diverticulosis. Evidence for acute diverticulitis. The appendix is normal. Is no ascites. There is no lymphadenopathy. IMPRESSION: 1. Bilateral nephrolithiasis. No ureteral calculi or hydronephrosis. Right anterior aspect of the bladder extends into a right inguinal hernia. 2. Extensive colonic diverticulosis. No evidence for acute diverticulitis. 3. No bowel obstruction. 4. Hyperdense material within the gallbladder. This may reflect sludge or stones. No convincing evidence for acute cholecystitis. ACT 112: Negative or not required by law. Electronically signed by: Marshlal Crow M.D. 07/08/2021 9:22 PM Discharge Plan Visit Data Chief Complaint: Abnormal Labs/Diagnostic Testing Stated Complaint: ABNORMAL LABS ED Provider: Alfred Bonilla Discharge Problem: Acute left flank pain, Acute pyelonephritis, Failure of outpatient treatment Patient Disposition: Admitted As Inpatient Condition: Good Forms Stand Alone Forms: [facility] Prescriptions Prescriptions: No Action levothyroxine 112 mcg tablet 112 mcg PO DAILY RF: 0 Referrals Referrals: Saulo Pan MD [Primary Care Provider] -
[2021-07-08 19:50] LABS: Albumin Level 3.9 gm/dl (3.4-5.0); BUN Creatinine Ratio 15.1 (10-20); Calcium 9.4 mg/dl (8.5-10.1); Creatinine Clr Calc Pharmacy 45.8 ml/min; Est GFR (African American) 63.6 ml/min; Est GFR (Non-African American) 54.9 ml/min; Potassium 4.3 mmol/L (3.5-5.1)
[2021-07-08 19:53] LABS: Albumin Globulin Ratio 1.1 (0.9-2); Bilirubin,Total 0.9 mg/dl (0.2-1); Globulin 3.7 gm/dl (2.5-4.0); Total Protein 7.6 gm/dl (6.4-8.2)
[2021-07-08 20:10] LABS: Appearance Urine Clear (Clear); Bacteria Urine Automated 2+ (Negative); Bilirubin Urine Negative (Negative); Blood Urine Negative (Negative); Color Urine Yellow; Epithelial Cell Urine Auto 0-5 /lpf (0-5); Glucose Urine UA Negative (Negative); Ketones Urine Negative (Negative); Leukocyte Esterase Urine 1+ (Negative); Nitrite Urine Positive (Negative); Protein Urine Negative (Negative); RBC Urine Automated 0-4 /hpf (0-4); Specific Gravity Urine 1.018 (1.000-1.030); Urobilinogen Urine Negative (Negative); WBC Urine Automated >30 /hpf (0-5)
--- NOTE | 2021-07-08 21:23 | CT Scan Report ---
CT OF THE ABDOMEN AND PELVIS WITHOUT CONTRAST CLINICAL HISTORY: Left flank pain. COMPARISON STUDY: CT of the abdomen and pelvis January 28, 2020. KUB February 28, 2021. TECHNIQUE: Axial images of the abdomen and pelvis were obtained without IV contrast. Images were revi ewed in the axial, sagittal, and coronal planes. Automated exposure control was utilized for the [place] dy. A dose lowering technique was utilized adhering to the principles of ALARA. FINDINGS: Lung bases are unremarkable. There is hyperdense material within the gallbladder. Calcified focus within the gallbladder is noted. There is no convincing evidence for acute cholecystitis. Unen hanced images of the spleen, adrenal glands and pancreas are unremarkable. There is no biliary or trevizo creatic ductal dilatation. Multiple bilateral renal calculi measure up to 4 mm. There are no ureteral calculi. There is no hydronephrosis. A water attenuation left renal lesions are suboptimally assesse d on this unenhanced exam but favor cysts. There may be a hyperdense cyst within the midpole of the l eft kidney. Right inguinal hernia contains the right anterior aspect of the bladder. Moderate amount stool within the rectum is noted. This extensive colonic diverticulosis. Evidence for acute diverticu litis. The appendix is normal. Is no ascites. There is no lymphadenopathy. IMPRESSION: 1. Bilateral nephrolithiasis. No ureteral calculi or hydronephrosis. Right anterior aspect of the john dder extends into a right inguinal hernia. 2. Extensive colonic diverticulosis. No evidence for acute diverticulitis. 3. No bowel obstruction. 4. Hyperdense material within the gallbladder. This may reflect sludge or stones. No convincing evide nce for acute cholecystitis. ACT 112: Negative or not required by law. Electronically signed by: Marshall Crow M.D. 07/08/2021 9:22 PM
--- NOTE | 2021-07-08 22:56 | History & Physical Report ---
Date of Service July 08, 2021 Assessment & Plan (1) UTI (urinary tract infection): Plan: 81yo male with remote history of head and neck cancer in remission, nephrolithiasis and Pseudomonas UTI presenting with +UA. He reports a history of severe sepsis following stone removal performed at an outside facility approximately 3 months ago. He has been treated with 2 courses of Cefepime outpatient. Per our records, patient with Pseudomonas in the urine 01/26/21 as well as 06/24/21 (resistant to Levaquin and Cipro). Per our sensitivities - strain is sensitive to Cefepime. He is asymptomatic - afebrile, HD stable. He denies fever, chills, rigors. His left sided flank pain is longstanding with no acute worsening. No leukocytosis. UA is suggestive of infection with Nitrites, LE, WBC and 2+ bacteria. -Follow cultures -Meropenem started in the ER - will continue. Patient will need to have PICC placement for home therapy -ID consultation re: asymptomatic bacteriuria vs true infection. ?significance of renal stones as well - possibly making it more difficult to clear urine? Of note, patient is adamant to leave the hospital tomorrow morning. (2) Hypertension: Plan: Blood pressure elevated on arrival 188/85. Patient not currently on any medications for blood pressure. No symptoms of MICHEL, visual change, CP, SOB, back pain. -Continue to monitor (3) Hypothyroid: Plan: Chronic -Continue Synthroid at home dose Plan: F/E/N - Heplock. Electrolytes WNL. AHA diet as tolerated with aspiration precautions Ppx - SCDs Code - Full Dispo - Observation to medical History of Present Illness Chief Complaint: Pseudomonas UTI Primary Care Provider: Saulo Pan MD Arnulfo Modi is an 81yo male with remote history of head and neck CA now in remission, nephrolithiasis and persistent Pseudomonas aeruginosa UTI resistant to Levaquin. Patient was hospitalized at [facility] in January 2020 and found to have Pseudomonas in the urine. Thought to be more asymptomatic bacteriuria rather than true infection. He was not treated. Patient reports having emergency removal of renal stone, lithotripsy with stent placement approximately 3 months ago performed at [facility] in [facility]. He reports becoming septic after this procedure. He was told that he had a UTI secondary to Pseudomonas. Patient was discharged home and continued on IV Cefepime daily while at home for appx 5 days. He stated that he improved clinically. However, approximately 3 weeks after that hospitalization he became ill again with flank pain and nausea. He was seen at [facility] and told that he still had a Pseudomonas UTI. He was set up with home Cefepime again and completed his course as prescribed - last dose was 06/30/21. Patient states that he is overall feeling well. He denies fever, chills, rigors, nausea, vomiting. He has occasional flank pain but does not report worsening from baseline. He provided a urine specimen to his PCP earlier this week to check if the infection was still present. He was contacted today and told that the culture was again positive for Pseudomonas and was instructed to come to the ER. Patient has no additional complaints. Afebrile, HD stable and nontoxic in the ER. No pain ER Course: Meropenem, NSS Allergies Allergy/AdvReac Type Severity Reaction Status Date / Time Penicillins Allergy Mild . Verified 07/08/21 20:49 Home Medications Medication Instructions Recorded Confirmed Type levothyroxine 112 mcg tablet 112 mcg PO DAILY 07/08/21 07/08/21 History Past Med/Surg History Medical History (Updated 07/09/21 @ 01:20 by Joy Mathis DO) Head and neck cancer Hypothyroid Kidney stone on left side Primary head and neck soft tissue sarcoma UTI (urinary tract infection) Family History Other Family history non-contributory Social History Smoking Status: Never smoker Tobacco Type: Cigarettes Second Hand Exposure: No; Hx Alcohol Use: No Hx Substance Use: No Preferred Language: Cambodian Communication Ability: Effective Pot Fluxer Required: No Beliefs That Will Affect Care: None marital status: Current Living Situation: Alone current occupational status: retired Feels Safe at Home: Yes Assistive Devices: Glasses Review of Systems Review of Systems: All systems reviewed & are unremarkable except as noted in HPI & below Physical Exam Physical Exam: General: patient resting comfortably, NAD, non-toxic in appearance, AA&O x 4 Skin: warm, dry, intact, no rashes or lesions HEENT: NC/AT, PERRL, EOMI, anicteric sclera, conjunctiva without injection, external ear normal to inspection and nontender, nares patent, moist mucus membranes, dentition intact, no oropharyngeal lesions, neck supple, trachea midline, no LAD, no thyromegaly, no JVD Heart: +S1/S2, regular, no m/r/g Lungs: equal air entry bilaterally, no rales/rhonchi/wheezes Abd: +BS, soft, NT/ND, no masses/organomegaly/ascites Ext: warm, 2+ pulses in UE/LE bilaterally, no clubbing/cyanosis or edema Neuro: nonfocal, patient AA&O x 4, speech intact, no facial droop, moving all extremities on command with equal strength 5/5 Results & Data Results & Data ([facility]) Vital Signs (Past 12 Hours) Vital Signs Temp Pulse Pulse Resp BP BP Pulse Ox 07/08/21 20:59 66 18 188/85 H 97 07/08/21 17:01 36.7 C 74 20 177/71 H 97 Laboratory Results Laboratory Results WBC 5.75 K/uL (4.8-10.8) 07/08/21 19: RBC 4.64 M/uL (4.7-6.1) L 07/08/21 19:22 Hgb 14.3 g/dL (14.0-18.0) 07/08/21 19: Hct 43.1 % (42-52) 07/08/21 19:22 MCV 92.9 fL (80-100) 07/08/21 19: MCH 30.8 pg (25-34) 07/08/21 19: MCHC 33.2 g/dL (32-36) 07/08/21 19:22 RDW Std Deviation 49.6 fL (36.4-46.3) H 07/08/21 19: RDW Coeff of Heidi 14.6 % (11.5-14.5) H 07/08/21 19: Plt Count 248 K/uL (130-400) 07/08/21 19: MPV 10.2 fL (7.4-10.4) 07/08/21 19:22 Immature Gran % (Auto) 0.2 % 07/08/21: Neut % (Auto) 57.4 % 07/08/21 19:22 Lymph % (Auto) 27.8 % 07/08/21 19:22 Allen % (Auto) 11.0 % 07/08/21 19:22 Eos % (Auto) 3.1 % 07/08/21 19:22 Baso % (Auto) 0.5 % 07/08/21 19:22 Neut # (Auto) 3.30 K/uL (1.4-6.5) 07/08/21 19: Lymph # (Auto) 1.60 K/uL (1.2-3.4) 07/08/21 19:22 Allen # (Auto) 0.63 K/uL (0.11-0.59) H 07/08/21 19:22 Eos # (Auto) 0.18 K/uL (0-0.5) 07/08/21: Baso # (Auto) 0.03 K/uL (0-0.2) 07/08/21 19: Immature Gran # (Auto) 0.01 K/uL (0.00-0.02) 07/08/21 19: Sodium 138 mmol/L (136-145) 07/08/21 19: Potassium 4.3 mmol/L (3.5-5.1) 07/08/21 19: Chloride 105 mmol/L (98-107) 07/08/21 19: Carbon Dioxide 29 mmol/L (21-32) 07/08/21 19: Anion Gap 4.0 (3-11) 07/08/21 19: BUN 18 mg/dl (7-18) 07/08/21 19: Creatinine 1.22 mg/dl (0.6-1.4) 07/08/21 19: Est Cr Clr Drug Dosing 45.8 ml/min 07/08/21 19:22 Est GFR ( Amer) 63.6 ml/min 07/08/21 19: Est GFR (Non-Af Amer) 54.9 ml/min 07/08/21 19: BUN/Creatinine Ratio 15.1 (10-20) 07/08/21 19: Glucose 73 mg/dl (70-99) 07/08/21 19: Calcium 9.4 mg/dl (8.5-10.1) 07/08/21 19:22 Total Bilirubin 0.9 mg/dl (0.2-1) 07/08/21 19:22 AST 14 U/L (15-37) L 07/08/21 19:22 ALT 13 U/L (12-78) 07/08/21 19:22 Alkaline Phosphatase 134 U/L (45-117) H 07/08/21 19:22 Total Protein 7.6 gm/dl (6.4-8.2) 07/08/21 19:22 Albumin 3.9 gm/dl (3.4-5.0) 07/08/21 19:22 Globulin 3.7 gm/dl (2.5-4.0) 07/08/21 19:22 Albumin/Globulin Ratio 1.1 (0.9-2) 07/08/21 19:22 Urine Color Yellow 07/08/21 19:49 Urine Appearance Clear (Clear) 07/08/21 19:49 Urine pH 6.0 (4.5-7.5) 07/08/21 19:49 Ur Specific [place] 1.018 (1.000-1.030) 07/08/21 19:49 Urine Protein Negative (Negative) 07/08/21 19:49 Urine Glucose (UA) Negative (Negative) 07/08/21 19:49 Urine Ketones Negative (Negative) 07/08/21 19:49 Urine Blood Negative (Negative) 07/08/21 19:49 Urine Nitrite Positive (Negative) A 07/08/21 19:49 Urine Bilirubin Negative (Negative) 07/08/21 19:49 Urine Urobilinogen Negative (Negative) 07/08/21 19:49 Ur Leukocyte Esterase 1+ (Negative) H 07/08/21 19:49 Urine WBC (Auto) >30 /hpf (0-5) H 07/08/21 19:49 Urine RBC (Auto) 0-4 /hpf (0-4) 07/08/21 19:49 U Hyaline Cast (Auto) 10-30 /lpf (0-5) H 07/08/21 19:49 U Epithel Cells (Auto) 0-5 /lpf (0-5) 07/08/21 19:49 Urine Bacteria (Auto) 2+ (Negative) H 07/08/21 19:49 COVID-19 Eval Order Covid19 at [facility] 07/08/21 23:49 SARS-CoV-2 (PCR) NEGATIVE (Negative) 07/08/21 23:49 Impressions Abdomen/Pelvis CT 07/08/21 19:42 CT OF THE ABDOMEN AND PELVIS WITHOUT CONTRAST CLINICAL HISTORY: Left flank pain. COMPARISON STUDY: CT of the abdomen and pelvis January 28, 2020. KUB February 28, 2021. TECHNIQUE: Axial images of the abdomen and pelvis were obtained without IV contrast. Images were reviewed in the axial, sagittal, and coronal planes. Automated exposure control was utilized for the study. A dose lowering technique was utilized adhering to the principles of ALARA. FINDINGS: Lung bases are unremarkable. There is hyperdense material within the gallbladder. Calcified focus within the gallbladder is noted. There is no convincing evidence for acute cholecystitis. Unenhanced images of the spleen, adrenal glands and pancreas are unremarkable. There is no biliary or pancreatic ductal dilatation. Multiple bilateral renal calculi measure up to 4 mm. There are no ureteral calculi. There is no hydronephrosis. A water attenuation left renal lesions are suboptimally assessed on this unenhanced exam but favor cysts. There may be a hyperdense cyst within the midpole of the left kidney. Right inguinal hernia contains the right anterior aspect of the bladder. Moderate amount stool within the rectum is noted. This extensive colonic diverticulosis. Evidence for acute diverticulitis. The appendix is normal. Is no ascites. There is no lymphadenopathy. IMPRESSION: 1. Bilateral nephrolithiasis. No ureteral calculi or hydronephrosis. Right anterior aspect of the bladder extends into a right inguinal hernia. 2. Extensive colonic diverticulosis. No evidence for acute diverticulitis. 3. No bowel obstruction. 4. Hyperdense material within the gallbladder. This may reflect sludge or stones. No convincing evidence for acute cholecystitis. ACT 112: Negative or not required by law. Electronically signed by: Marshall Crow M.D. 07/08/2021 9:22 PM Code Status & VTE Plan VTE Prophylaxis Plan VTE Prophylaxis will be ordered: Yes PG Care Time/CCT Total # of Minutes Spent Total Time Spent with Patient: Total time spent is greater than 50% in coordination of care (as documented) at patient's floor/unit and/or counseling patient: Coding Level of Care Code INT OBSERVATION CARE 50M LVL 2 Diagnoses Hypertension I10 UTI (urinary tract infection) N39.0 Hypothyroid E03.9
[2021-07-09] MEDS ORDERED: MEROPENEM CONSULT ACTIVE PRN (02:09)
[2021-07-09] MEDS ORDERED: ACETAMINOPHEN 325 MG TAB PO PRN (02:09)
[2021-07-09] MEDS: LEVOTHYROXINE SODIUM 112 MCG TABLET PO SCH (07:06)
[2021-07-09] MEDS: MEROPENEM 500 MG in SYRINGE 0 ML IV SCH ×3 (07:06→21:59)
--- NOTE | 2021-07-09 08:05 | Hospitalist Progress Note ---
Date of Service July 09, 2021 Assessment & Plan (1) UTI (urinary tract infection): Plan: 81yo male with remote history of head and neck cancer in remission, nephrolithiasis and Pseudomonas UTI presenting with +UA. He reports a history of severe sepsis following stone removal performed at an outside facility approximately 3 months ago. He has been treated with 2 courses of Cefepime outpatient. Per our records, patient with Pseudomonas in the urine 01/26/21 as well as 06/24/21 (resistant to Levaquin and Cipro). Per our sensitivities - strain is sensitive to Cefepime but previously has been on 2 rounds of Cefepime without clearing, . He is asymptomatic - afebrile, HD stable. He denies fever, chills, rigors. His left sided flank pain is longstanding with no acute worsening. No leukocytosis. UA is suggestive of infection with Nitrites, LE, WBC and 2+ bacteria. -Follow cultures -Meropenem started in the ER - will continue. Patient will need to have us guided central catheter for iv delivery at home, ID consult as outpt -ID consultation re: asymptomatic bacteriuria vs true infection. ?significance of renal stones as well - possibly making it more difficult to clear urine? Pt is agreeable to stay in hospital until defined course of antibiotics aree worked out (2) Hypertension: Plan: Blood pressure elevated on arrival 188/85. Patient not currently on any medications for blood pressure. No symptoms of MICHEL, visual change, CP, SOB, back pain. -Continue to monitor, pt does not want to start new meds (3) Hypothyroid: Plan: Chronic -Continue Synthroid at home dose Plan: F/E/N - Heplock. Electrolytes WNL. AHA diet as tolerated with aspiration precautions Ppx - SCDs Code - Full pt requires antibiotics iv will convert to admission Admission and Anticipated Discharge Date Admission Date: July 08, 2021 Subjective Patient is in no particular distress with exception of not wanting be in the hospital. Patient has a multidrug-resistant Pseudomonas UTI who is being treated as an outpatient with cefepime but is now refractory to antibiotic. Patient needs to have likely multidosed antibiotic and meropenem was chosen. The process of securing a IV access or longer-term outpatient administration and coordinating with insurance coverage to have home health meet his needs Review of Systems Review of Systems: Moderate distress and fatigue no headache, no visual changes no speech or swallowing issues no chest pain, pressure or palpitations no shortness of breath, cough or wheezes no abdominal pain, nausea or vomiting, diarrhea or constipation no dysuria, hematuria or frequency no focal joint pain or swelling no back pain, CVA tenderness or radicular pain no bruising, bleeding or rashes no focal signs of weakness or numbness or altered sensation no complaints of anxiety or depression.. Physical Exam Physical Exam: The patient appeared well nourished and normally developed. Vital signs as documented. Head exam is normocephalic atraumatic Neck is without JVD, thyromegaly, or carotid bruits. Lungs are clear to auscultation, no focal loss of breath sounds Cardiac exam, Rhythm is regular.. No murmurs, rubs or gallops. Abdominal exam reveals normal bowel sounds, soft non tender, no masses Extremities are nonedematous and both pedal pulses are present Neurologic exam is alert and oriented, no focal loss of strength or sensation Skin is without bruises or rashes Psychologically is without concerns for anxiety or depression Results & Data Results & Data ([facility]) Vital Signs (Past 12 Hours) Vital Signs Pulse Resp BP Pulse Ox 07/08/21 20:59 66 18 188/85 H 97 PG Care Time/CCT Total # of Minutes Spent Total Time Spent with Patient: Total time spent is greater than 50% in coordination of care (as documented) at patient's floor/unit and/or counseling patient: Coding Level of Care Code 15975 Subseq Hosp Care Lvl 2 Diagnoses UTI (urinary tract infection) N39.0 Hypertension I10 Hypothyroid E03.9
[2021-07-10] MEDS: MEROPENEM 500 MG in SYRINGE 0 ML IV SCH ×3 (06:07→22:02)
[2021-07-10] MEDS: LEVOTHYROXINE SODIUM 112 MCG TABLET PO SCH (06:07)
[2021-07-10 06:42] LABS: Creatinine Clr Calc Pharmacy 52.5 ml/min; Est GFR (African American) 75.4 ml/min
--- NOTE | 2021-07-10 16:31 | Hospitalist Progress Note ---
Date of Service July 10, 2021 Assessment & Plan (1) UTI (urinary tract infection): Plan: 81yo male with remote history of head and neck cancer in remission, nephrolithiasis and Pseudomonas UTI presenting with +UA. He reports a history of severe sepsis following stone removal performed at an outside facility approximately 3 months ago. He has been treated with 2 courses of Cefepime outpatient. Per our records, patient with Pseudomonas in the urine 01/26/21 as well as 06/24/21 (resistant to Levaquin and Cipro). Per our sensitivities - strain is sensitive to Cefepime. He is asymptomatic - afebrile, HD stable. He denies fever, chills, rigors. His left sided flank pain is longstanding with no acute worsening. No leukocytosis. UA is suggestive of infection with Nitrites, LE, WBC and 2+ bacteria. -Follow cultures -Meropenem started in the ER - will continue. Patient will need to have PICC placement for home therapy -ID consultation re: asymptomatic bacteriuria vs true infection. ?significance of renal stones as well - possibly making it more difficult to clear urine? Of note, patient is hopeful to leaving the hospital 07/11 in the am has to leave to be home for 2 pm dose (2) Hypertension: Plan: Blood pressure elevated on arrival 188/85. Patient not currently on any medications for blood pressure. No symptoms of MICHEL, visual change, CP, SOB, back pain. -Continue to monitor (3) Hypothyroid: Plan: Chronic -Continue Synthroid at home dose Plan: F/E/N - Heplock. Electrolytes WNL. AHA diet as tolerated with aspiration precautions Ppx - SCDs Code - Full Dispo - Observation to medical Admission and Anticipated Discharge Date Admission Date: July 09, 2021 Subjective Patient is in no particular distress with exception of not wanting be in the hospital. Patient has a multidrug-resistant Pseudomonas UTI who is being treated as an outpatient with cefepime but is now refractory to antibiotic. Zachary man needs to have likely multidosed antibiotic and meropenem was chosen. The process of securing a IV access or longer-term outpatient administration and coordinating with insurance coverage to have home health meet his needs Review of Systems Review of Systems: Moderate distress and fatigue no headache, no visual changes no speech or swallowing issues no chest pain, pressure or palpitations no shortness of breath, cough or wheezes no abdominal pain, nausea or vomiting, diarrhea or constipation no dysuria, hematuria or frequency no focal joint pain or swelling no back pain, CVA tenderness or radicular pain no bruising, bleeding or rashes no focal signs of weakness or numbness or altered sensation no complaints of anxiety or depression.. Physical Exam Physical Exam: The patient appeared well nourished and normally developed. Vital signs as documented. Head exam is normocephalic atraumatic Neck is without JVD, thyromegaly, or carotid bruits. Lungs are clear to auscultation, no focal loss of breath sounds Cardiac exam, Rhythm is regular.. No murmurs, rubs or gallops. Abdominal exam reveals normal bowel sounds, soft non tender, no masses Extremities are nonedematous and both pedal pulses are present Neurologic exam is alert and oriented, no focal loss of strength or sensation Skin is without bruises or rashes Psychologically is without concerns for anxiety or depression Results & Data Results & Data ([facility]) Vital Signs (Past 12 Hours) Vital Signs Temp Pulse Resp BP BP Pulse Ox 07/10/21 14:50 97.5 F L 76 18 170/82 H 95 07/10/21 10:06 97.5 F L 70 16 175/79 H 199/75 H 95 07/10/21 07:02 97.5 F L 70 16 175/79 H 95 PG Care Time/CCT Total # of Minutes Spent Total Time Spent with Patient: Total time spent is greater than 50% in coordination of care (as documented) at patient's floor/unit and/or counseling patient: Coding Level of Care Code 84486 Subseq Hosp Care Lvl 2 Diagnoses UTI (urinary tract infection) N39.0 Hypertension I10 Hypothyroid E03.9
[2021-07-11 06:14] LABS: Creatinine Clr Calc Pharmacy 49.3 ml/min; Est GFR (African American) 69.8 ml/min; Est GFR (Non-African American) 60.2 ml/min
[2021-07-11] MEDS: LEVOTHYROXINE SODIUM 112 MCG TABLET PO SCH (06:18)
[2021-07-11] MEDS: MEROPENEM 500 MG in SYRINGE 0 ML IV SCH (06:18)
--- NOTE | 2021-07-11 16:33 | Discharge Summary ---
Date of Service July 11, 2021 Admission HPI Per Admitting Provider Arnulfo Modi is an 81yo male with remote history of head and neck CA now in remission, nephrolithiasis and persistent Pseudomonas aeruginosa UTI resistant to Levaquin. Patient was hospitalized at [facility] in January 2020 and found to have Pseudomonas in the urine. Thought to be more asymptomatic bacteriuria rather than true infection. He was not treated. Patient reports having emergency removal of renal stone, lithotripsy with stent placement approximately [address] [facility] in [facility]. He reports becoming septic after this procedure. He was told that he had a UTI secondary to Pseudomonas. Patient was discharged home and continued on IV Cefepime daily while at home for appx 5 days. He stated that he improved clinically. However, approximately 3 weeks after that hospitalization he became ill again with flank pain and nausea. He was seen at [facility] and told that he still had a Pseudomonas UTI. He was set up with home Cefepime again and completed his course as prescribed - last dose was 06/30/21. Patient states that he is overall feeling well. He denies fever, chills, rigors, nausea, vomiting. He has occasional flank pain but does not report worsening from baseline. He provided a urine specimen to his PCP earlier this week to check if the infection was still present. He was contacted today and told that the culture was again positive for Pseudomonas and was instructed to come to the ER. Patient has no additional complaints. Afebrile, HD stable and nontoxic in the ER. No pain ER Course: Meropenem, NSS Principal Diagnosis Pseudomonas UTI Discharge Exam PHYSICAL EXAM General Appearance: WDWN in NAD who is A&O x 3 HEENT: Head is normocephalic/atraumatic; Hearing grossly intact; Mucous membranes moist Neck: Supple; Trachea midline; Neg JVD Heart: RRR with no M/G/R Lungs: CTA in all lung holt bilaterally; Respirations unlabored; Neg accessory muscle use Abdomen: Soft, non-tender, non-distended; Positive BS x 4 quadrants Extremities:Neg cyanosis or edema Neurological: Speech clear; Gross motor/sensory function intact; Neg focal neurologic deficits Psychiatric: Appropriate mood/affect Skin: Normal Color; Warm/Dry Discharge Data Allergies Allergy/AdvReac Type Severity Reaction Status Date / Time Penicillins Allergy Mild . Verified 07/08/21 20:49 Consultations I certify that this patient is under my care and that I, or a physicians commercial escrow assistant working with me, had a face to-face encounter that meets the home health [id number] encounter requirements with this patient. The encounter with the patient was in whole, or in part, for the following medical condition, which is the primary reason for home health care (list medical condition): RN; TIFFANIE workman I certify that, based on my findings, the following services are medically necessary home health services: My clinical findings support the need for the above services because: Skilled Nsg Assessment Skilled Nsg Instruction New Medications S/S to Report to Provider Weekly Labs Further, I certify that my clinical findings support that this patient is homebound (i.e. absences from home require considerable and taxing effort and are for medical reasons or spiritism services or infrequently or of short duration when for other reasons) because: Certification for Home Health Services: Based on the above findings, I certify that this patient is confined to the home and needs intermittent intermediate care, physical therapy and/or speech therapy or continues to need occupational therapy. The patient is under my care, and I have initiated the establishment of the plan of care. This patient will be followed by a physician who will periodically review the plan of care. Ordered Studies Abdomen/Pelvis CT 07/08/21 19:42 CT OF THE ABDOMEN AND PELVIS WITHOUT CONTRAST CLINICAL HISTORY: Left flank pain. COMPARISON STUDY: CT of the abdomen and pelvis January 28, 2020. KUB February 28, 2021. TECHNIQUE: Axial images of the abdomen and pelvis were obtained without IV contrast. Images were reviewed in the axial, sagittal, and coronal planes. Automated exposure control was utilized for the study. A dose lowering technique was utilized adhering to the principles of ALARA. FINDINGS: Lung bases are unremarkable. There is hyperdense material within the gallbladder. Calcified focus within the gallbladder is noted. There is no convincing evidence for acute cholecystitis. Unenhanced images of the spleen, adrenal glands and pancreas are unremarkable. There is no biliary or pancreatic ductal dilatation. Multiple bilateral renal calculi measure up to 4 mm. There are no ureteral calculi. There is no hydronephrosis. A water attenuation left renal lesions are suboptimally assessed on this unenhanced exam but favor cysts. There may be a hyperdense cyst within the midpole of the left kidney. Right inguinal hernia contains the right anterior aspect of the bladder. Moderate amount stool within the rectum is noted. This extensive colonic diverticulosis. Evidence for acute diverticulitis. The appendix is normal. Is no ascites. There is no lymphadenopathy. IMPRESSION: 1. Bilateral nephrolithiasis. No ureteral calculi or hydronephrosis. Right anterior aspect of the bladder extends into a right inguinal hernia. 2. Extensive colonic diverticulosis. No evidence for acute diverticulitis. 3. No bowel obstruction. 4. Hyperdense material within the gallbladder. This may reflect sludge or stones. No convincing evidence for acute cholecystitis. ACT 112: Negative or not required by law. Electronically signed by: Marshall Crow M.D. 07/08/2021 9:22 PM Hospital Course (1) UTI (urinary tract infection): 81yo male with remote history of head and neck cancer in remission, nephrolithiasis and Pseudomonas UTI presenting with +UA. He reports a history of severe sepsis following stone removal performed at an outside facility approximately 3 months ago. He has been treated with 2 courses of Cefepime outpatient. Per our records, patient with Pseudomonas in the urine 01/26/21 as well as 06/24/21 (resistant to Levaquin and Cipro). Per our sensitivities - strain is sensitive to Cefepime. He is asymptomatic - afebrile, HD stable. He denies fever, chills, rigors. His left sided flank pain is longstanding with no acute worsening. No leukocytosis. UA is suggestive of infection with Nitrites, LE, WBC and 2+ bacteria. - Cx again with pseudomonas resistant to Cipro/Levo -Meropenem to complete course; Rx sent by previous provider for home set-up; Patient had ultrasound guided line placed for home therapy -ID consultation re: asymptomatic bacteriuria vs true infection. ?significance of renal stones as well - possibly making it more difficult to clear urine? (2) Hypertension: Blood pressure elevated on arrival 188/85. Patient not currently on any medications for blood pressure. No symptoms of MICHEL, visual change, CP, SOB, back pain. -Continue to monitor (3) Hypothyroid: Chronic -Continue Synthroid at home dose - Complete IV Meropenem - PCP Follow-up Total Time Total Time Spent Total Time Spent (In Minutes): Spent greater than 30 minutes preparing patient for discharge. This includes discussion with patient/family, assessment, intervention, medication reconciliation, and coordination of care. Discharge Plan Discharge Items Patient Disposition: Home - Home Health Services Reason For Visit: PSUEDOMONAS UTI Discharge Diagnosis: drug resistant Pseudomonas UTI poa Condition on Discharge: Good Activity: Per Instructions section Activity Comment: iv precautions at home when bathing Non-emergency contact: Primary Care Provider Call non-emergency contact if: your symptoms worsen and you have a fever Follow-up/Referrals: Saulo Pan MD [Primary Care Provider] - 07/15/21 9:20 am Diet: Regular Addtl Attending Provider Instructions: Call your healthcare provider right away if: * You pull your IV CAtheter line out of place or think you might have pulled it out of place. * You have a fever of 100.4 F (38 C) or higher. * You have shortness of breath. * You feel lightheaded or dizzy. * You have nausea (feeling like youre going to throw up) or vomiting (throwing up). * You feel confused. * You have discomfort in your chest. * You have swelling in your hand, fingers, upper arm, or neck. * You have aching in the arm where your IV line is placed. * You have heart palpitations (a faster heartbeat than usual). * You have numbness or tingling in your arm, hands, or fingers of the arm where the PICC line is placed. * You have bleeding from the IV line site. * You have redness or warmth at the IV line site or in the arm with the IV line. * You can shower with your PICC in place using a ani-wlpq-ooa waterproof cover such as cling Food wrap and tape at either end to keep the IV site from getting wet. You can also buy waterproof covers online. Pending Studies at Discharge: No Stand-Alone Forms: My Direct Access Software, Smoking Cessation Medications and DC Order Prescriptions: New meropenem 500 mg recon soln 500 mg IV Q8H Qty: 36 RF: 0 Continued levothyroxine 112 mcg tablet 112 mcg PO DAILY RF: 0 Discharge Orders: Discharge Order (Routine); Ordered 07/11/21 Ordered By: Ed Delgado Admission Data Admit Date/Time: 07/09/21 10:56 Attending Provider: Jeronimo Ward Admit Provider: Joy Mathis Primary Care Provider: Saulo Pan Other Providers: Willy Grady ; Angela Reza ; Asim Mathis I. ; Chase Wang II ; Shelly Lujan ; Alejandro Graves ; Domo Joseph ; Joy Mathis ; W[facility] Other Interventions: Discharge Summary Assessment (RN) Last Done: 07/11/21 09:37 Supervising Physician Co-Signing Physician Notes Attending note: patient seen and examined with Tania Olvera PA-C. I agree with her discharge summary. I personally reviewed the labs and imaging findings. - UTI, Pseudomonas: will have Meropenem set up for home IV antibiotics, has US guided IV in place vitals stable, no fever, eating well, he is stable for discharge Coding Level of Care Code D/C DAY MANAGEMENT >30 MINS Diagnoses UTI (urinary tract infection) N39.0 Hypertension I10 Hypothyroid E03.9
== END 2021-07-11 10:40 | disposition home health service (06) | DRG 690 ==
LOC: 3E 16:22 → ED 16:22 → SUATTDRO 22:56 → 3E 07-09 01:41 → SUATTDRO 07-09 10:56
DX: N39.0 Urinary tract infection, site not specified; Z88.0 Allergy status to penicillin; Z87.442 Personal history of urinary calculi; E03.9 Hypothyroidism, unspecified; B96.5 Pseudomonas (aeruginosa) (mallei) (pseudomallei) as the cause of diseases classified elsewhere; Z85.028 Personal history of other malignant neoplasm of stomach

== ENCOUNTER 2021-10-21 19:45 | Inpatient (IN) ==
[2021-10-21] MEDS ORDERED: MoRPHine SULFATE 4 MG/ML 1 ML CARP\\VIAL IV STA ×2 (19:59→21:22)
[2021-10-21] MEDS ORDERED: SODIUM CHLORIDE 0.9% 1000ML 1,000 ML IV STA (19:59)
[2021-10-21] MEDS ORDERED: ONDANSETRON INJ 2 MG/ML 2 ML VIAL IV STA (19:59)
--- NOTE | 2021-10-21 20:01 | Emergency Department Note ---
Impression & Plan Incarcerated hernia ADMIT ED Provider Note HPI: The patient is an 81-year-old gentleman with history of hypertension, anemia, presents the emergency department with a chief complaint of right lower quadrant pain consistent with a large direct hernia reoccurring. Patient was seen here in the emergency department earlier this month with the same issue, it was reduced at that time at the bedside by the attending surgeon, Dr. Vega, patient was discharged with plan for outpatient follow-up. Patient states that shortly prior to arrival today the hernia "slipped out". He states he had acute pain at that time. States this happened about 2 hours prior to arrival to the ED. Patient denies any nausea or vomiting, states the area is incredibly tender. Patient is very anxious appearing on arrival. ROS: -GI: Right lower quadrant pain/pain over hernia site *10 point review systems was conducted and is otherwise negative unless stated above *Outpatient medications and allergy history reviewed PE: General: Alert, moderate distress secondary to pain HEENT: Normocephalic, atraumatic Eyes: Extraocular eye movement is intact, no scleral erythema Pulmonary: Clear to auscultation bilaterally, no wheezing Cardio: Regular rate and rhythm GI: Abdomen is soft, there is a tender mass in the right lower quadrant consistent with inguinal hernia, nonreducible, tender to palpation : No suprapubic tenderness MSK: No evidence of trauma or malformation of the extremities, no edema Skin: No evidence of rash Neuro: Alert, no focal deficits Psychiatric: Anxious monitor worker: - An order was placed for continuous cardiac monitoring - Patient was noted to be in sinus rhythm with rate of 75 EKG: Rate: 74 Rhythm: Normal sinus rhythm Intervals: Within normal limits ST changes: No ST elevation Time: 2125 Medical Decision Making: Patient presented to the emergency department with chief complaint of right lower quadrant abdominal pain consistent with pain he is had in the past with his inguinal hernia. This did acutely herniate shortly prior to arrival to the ED. He has a tender mass in the right inguinal region, this previously was inc arcerated and reduced at the bedside by general surgery, the mass is not reducible on my examination today and the patient is having intense pain over the area. Shortly after the patient's presentation I did discuss the case with on-call general surgery, Dr. Herrera, who graciously agreed to evaluate the patient at the bedside for operative intervention. IV was established with some difficulty/delay, patient was given morphine for pain, lab work does not show any critical abnormalities, lactic acid is within normal limits, patient was transferred to the operating room in stable condition for further care via Dr. Herrera in the OR for incarcerated hernia. Diagnosis: 1. Right inguinal hernia, incarcerated 2. Acute abdominal pain Disposition: Admission to surgery Alejandro Navarro DO Emergency Medicine Past Med/Surg History Medical History Head and neck cancer 2010; treated surgically + radiation History of back injury History of kidney stones History of nephrolithotomy with removal of calculi Hypothyroidism Osteoarthritis Reducible right inguinal hernia Surgical History History of cancer surgery head and neck cancer 2010 History of colonoscopy History of cystoscopy with stone extraction History of open reduction and internal fixation (ORIF) procedure Left wrist Family History Other Family history non-contributory Social History (Updated 10/13/21 @ 12:03 by Valerie Alston RN) Smoking Status: Never smoker Tobacco Type: Cigarettes Second Hand Exposure: No; Hx Alcohol Use: No Hx Substance Use: No Preferred Language: Khmer Communication Ability: Effective Foundry Tender Required: No Beliefs That Will Affect Care: None marital status: Current Living Situation: Alone current occupational status: retired How many Children do You have: 1 Feels Safe at Home: Yes during the past year weight has: remained stable Assistive Devices: Glasses and Walker Allergies Allergies Allergy/AdvReac Type Severity Reaction Status Date / Time Penicillins Allergy Mild Swelling Verified 10/13/21 10:54 of Lip/Tongue/Throat Home Meds Home Medications Medication Instructions Recorded Confirmed levothyroxine 112 mcg tablet 112 mcg PO QAM 07/08/21 10/13/21 ascorbic acid (vitamin C) 250 mg 0 mg PO DAILY 10/07/21 10/13/21 tablet (Vitamin C) cyanocobalamin (vitamin B-12) 500 0 mcg PO DAILY 10/07/21 10/13/21 mcg tablet (Vitamin B-12) ferrous sulfate 325 mg (65 mg 0 mg PO Q OTHER DAY 10/07/21 10/13/21 iron) tablet (iron) food supplemt, lactose-reduced 1 ea PO DAILY 10/07/21 10/13/21 (Ensure) multivitamin 1 tab PO DAILY 10/07/21 10/13/21 naproxen 500 mg tablet 500 mg PO BID PRN 10/07/21 10/13/21 Previous Rx's Medication Instructions Recorded docusate sodium 100 mg capsule 100 mg PO DAILY PRN #30 cap 10/07/21 (Colace) sennosides 8.6 mg capsule (senna) 8.6 mg PO DAILY PRN #30 cap 10/07/21 Results & Data (ED) Vital Signs Vital Signs - 24 hr 10/21/21 19:48 10/21/21 21:05 Temperature 35.4 C L Temperature Source Temporal Artery Scan Pulse Rate 75 Pulse Rate [Finger] 73 Respiratory Rate 16 20 Respiratory Effort / Characteristics Non-Labored Spontaneous Non-Labored Spontaneous Respiratory Depth Normal Blood Pressure 201/80 H Blood Pressure Mean 120 Blood Pressure Position Sitting Pulse Oximetry 97 97 Oxygen Delivery Method Room Air Room Air Sepsis Recent Fever Within 48 Hours No Sepsis New/Unexplained Change in Mental Status N/A Sepsis Action Taken by Nursing No Action Required Laboratory Data Result diagrams: 10/21/21 21:13 10/21/21 21:13 Lab Results 10/21/21 10/21/21 10/21/21 Range/Units 20:48 21:13 21:13 WBC 9.71 (4.8-10.8) K/uL RBC 5.03 (4.7-6.1) M/uL Hgb 15.6 (14.0-18.0) g/dL Hct 46.3 (42-52) % MCV 92.0 (80-100) fL MCH 31.0 (25-34) pg MCHC 33.7 (32-36) g/dL RDW Std Deviation 50.8 H (36.4-46.3) fL RDW Coeff of Heidi 15.0 H (11.5-14.5) % Plt Count 228 (130-400) K/uL MPV 10.4 (7.4-10.4) fL Immature Gran % (Auto) 0.1 % Neut % (Auto) 79.9 % Lymph % (Auto) 13.0 % [place] % (Auto) 5.9 % Eos % (Auto) 0.8 % Baso % (Auto) 0.3 % Neut # (Auto) 7.76 H (1.4-6.5) K/uL Lymph # (Auto) 1.26 (1.2-3.4) K/uL [place] # (Auto) 0.57 (0.11-0.59) K/uL Eos # (Auto) 0.08 (0-0.5) K/uL Baso # (Auto) 0.03 (0-0.2) K/uL Immature Gran # (Auto) 0.01 (0.00-0.02) K/uL PT 10.8 (9.0-12.0) Seconds INR 1.1 (0.9-1.1) Sodium (136-145) mmol/L Potassium (3.5-5.1) mmol/L Chloride (98-107) mmol/L Carbon Dioxide (21-32) mmol/L Anion Gap (3-11) BUN (6-23) mg/dl Creatinine (0.6-1.4) mg/dl Est Cr Clr Drug Dosing ml/min Est GFR ( Amer) ml/min Est GFR (Non-Af Amer) ml/min BUN/Creatinine Ratio (10-20) Glucose (70-99(Fasting)) mg/dl Lactate (0.4-2.0) mmol/L Calcium (8.5-10.1) mg/dl Total Bilirubin (0.2-1.0) mg/dl AST (13-39) U/L ALT (7-52) U/L Alkaline Phosphatase (34-104) U/L Total Protein (6.0-8.3) gm/dl Albumin (3.4-5.0) gm/dl Globulin (2.5-4.0) gm/dl Albumin/Globulin Ratio (0.9-2) Lipase (11-82) U/L SARS-CoV-2, RNA, NAAT NEGATIVE (NEGATIVE) 10/21/21 10/21/21 Range/Units 21:13 21:13 WBC (4.8-10.8) K/uL RBC (4.7-6.1) M/uL Hgb (14.0-18.0) g/dL Hct (42-52) % MCV (80-100) fL MCH (25-34) pg MCHC (32-36) g/dL RDW Std Deviation (36.4-46.3) fL RDW Coeff of Heidi (11.5-14.5) % Plt Count (130-400) K/uL MPV (7.4-10.4) fL Immature Gran % (Auto) % Neut % (Auto) % Lymph % (Auto) % [place] % (Auto) % Eos % (Auto) % Baso % (Auto) % Neut # (Auto) (1.4-6.5) K/uL Lymph # (Auto) (1.2-3.4) K/uL [place] # (Auto) (0.11-0.59) K/uL Eos # (Auto) (0-0.5) K/uL Baso # (Auto) (0-0.2) K/uL Immature Gran # (Auto) (0.00-0.02) K/uL PT (9.0-12.0) Seconds INR (0.9-1.1) Sodium 137 (136-145) mmol/L Potassium 4.2 (3.5-5.1) mmol/L Chloride 100 (98-107) mmol/L Carbon Dioxide 28 (21-32) mmol/L Anion Gap 9 (3-11) BUN 23 (6-23) mg/dl Creatinine 1.23 (0.6-1.4) mg/dl Est Cr Clr Drug Dosing 46.9 ml/min Est GFR ( Amer) 63.0 ml/min Est GFR (Non-Af Amer) 54.3 ml/min BUN/Creatinine Ratio 18.7 (10-20) Glucose 114 H (70-99(Fasting)) mg/dl Lactate 1.5 (0.4-2.0) mmol/L Calcium 10.0 (8.5-10.1) mg/dl Total Bilirubin 1.4 H (0.2-1.0) mg/dl AST 13 (13-39) U/L ALT 7 (7-52) U/L Alkaline Phosphatase 139 H (34-104) U/L Total Protein 7.5 (6.0-8.3) gm/dl Albumin 4.4 (3.4-5.0) gm/dl Globulin 3.1 (2.5-4.0) gm/dl Albumin/Globulin Ratio 1.4 (0.9-2) Lipase 21 (11-82) U/L SARS-CoV-2, RNA, NAAT (NEGATIVE) Administered Medications Discontinued Medications Sodium Chloride (Nss 1000ml) 1,000 mls @ 999 mls/hr IV .Q1H1M STA Stop: 10/21/21 20:59 Last Admin: 10/21/21 21:23 Dose: Not Given Documented by: [id number] Morphine Sulfate (Morphine Sulfate 4 Mg/Ml 1 Ml Carp\\Vial) 4 mg IV NOW STA Stop: 10/21/21 20:00 Last Admin: 10/21/21 21:06 Dose: Not Given Documented by: [id number] Morphine Sulfate (Morphine Sulfate 10 Mg/Ml Carp/Vial) 6 mg IM NOW STA Stop: 10/21/21 20:04 Last Admin: 10/21/21 20:26 Dose: 6 mg Documented by: [id number] Morphine Sulfate (Morphine Sulfate 4 Mg/Ml 1 Ml Carp\\Vial) 4 mg IV NOW STA Stop: 10/21/21 21:23 Last Admin: 10/21/21 21:27 Dose: 4 mg Documented by: [id number] Ondansetron HCl (Ondansetron Inj 2 Mg/Ml 2 Ml Vial) 4 mg IV NOW STA Stop: 10/21/21 20:00 Last Admin: 10/21/21 21:08 Dose: 4 mg Documented by: [id number] Imaging Data Radiologist's Impression: Chest X-Ray 10/21/21 20:24 XR chest 1V portable HISTORY: 81 years-old Male Pre-op preoperative exam. No acute chest complaints COMPARISON: CT abdomen and pelvis 10/07/2021, chest CT 07/09/2018. TECHNIQUE: Semierect AP view of the chest FINDINGS: Aneurysmal dilation of the ascending thoracic aorta redemonstrated. The patient is mildly rotated. Mild widening of the mediastinum is likely accentuated by positioning. Cardiomegaly. No pneumothorax, large pleural effusion or overt pulmonary edema. Mild linear subsegmental bibasilar densities. Degenerative changes of the shoulders and spine. IMPRESSION: 1. Cardiomegaly with thoracic aortic aneurysmal dilation redemonstrated. 2. Mild bibasilar atelectasis. ACT 112: Negative or not required by law. The above report was generated using voice recognition software. It may contain grammatical, syntax or spelling errors. Electronically signed by: Geovanni Echeverria M.D. 10/21/2021 8:51 PM Discharge Plan Visit Data Chief Complaint: Pain (Generalized) Stated Complaint: HERNIA, PAIN ED Provider: Alejandro Navarro Discharge Problem: Incarcerated hernia Patient Disposition: Admitted As Inpatient Discharge Instructions Interventions: ED Discharge Assessment Last Done: 10/21/21 21:29
[2021-10-21] MEDS ORDERED: MoRPHine SULFATE 10 MG/ML CARP/VIAL IM STA (20:03)
--- NOTE | 2021-10-21 20:52 | XRay Report ---
XR chest 1V portable HISTORY: 81 years-old Male Pre-op preoperative exam. No acute chest complaints COMPARISON: CT abdomen and pelvis 10/07/2021, chest CT 07/09/2018. TECHNIQUE: Semierect AP view of the chest FINDINGS: Aneurysmal dilation of the ascending thoracic aorta redemonstrated. The patient is mildly rotated. Mi ld widening of the mediastinum is likely accentuated by positioning. Cardiomegaly. No pneumothorax, l arge pleural effusion or overt pulmonary edema. Mild linear subsegmental bibasilar densities. Degener ative changes of the shoulders and spine. IMPRESSION: 1. Cardiomegaly with thoracic aortic aneurysmal dilation redemonstrated. 2. Mild bibasilar atelectasis. ACT 112: Negative or not required by law. The above report was generated using voice recognition software. It may contain grammatical, syntax o r spelling errors. Electronically signed by: Geovanni Echeverria M.D. 10/21/2021 8:51 PM
--- NOTE | 2021-10-21 20:56 | Surgery Consultation ---
Date of Consultation October 21, 2021 Assessment & Plan (1) Incarcerated hernia: I am concerned patient may already have ischemic organ infarcted bowel. I have called the operating room to mobilize for an emergent laparoscopy possible open repair of the right inguinal hernia, possible bowel resection. I do not believe we should wait for Covid test to come back. He has been tested recently and was negative and he is asymptomatic. I discussed alternatives with him. I discussed risks which include bleeding, infection, injury to another organ such as bowel bladder or ureter, DVT, PE, MT, CVA etc. Patient is belligerent and uncooperative to exam as well as answering questions. Nonetheless he seems to understand and is willing to sign the consent form. We will proceed ALMA with laparoscopy possible open repair of an incarcerated right inguinal hernia possible mesh possible bowel resection. (2) Hypertension: (3) Hypothyroid: History of Present Illness History of Present Illness pt seen. writhing in pain. pt belligerent and unwilling to answer most questions. very angry and disrespectful to myself and staff. states pain started around 6 pm in right groin. had been here recently and was able to have it reduced by DR. Vega. pt non-cooperative to exam today. Allergies Allergy/AdvReac Type Severity Reaction Status Date / Time Penicillins Allergy Mild Swelling Verified 10/13/21 10:54 of Lip/Tongue/Throat Home Medications Medication Instructions Recorded Confirmed Type levothyroxine 112 mcg tablet 112 mcg PO QAM 07/08/21 10/13/21 History ascorbic acid (vitamin C) 250 mg 0 mg PO DAILY 10/07/21 10/13/21 History tablet (Vitamin C) cyanocobalamin (vitamin B-12) 500 0 mcg PO DAILY 10/07/21 10/13/21 History mcg tablet (Vitamin B-12) docusate sodium 100 mg capsule 100 mg PO DAILY PRN #30 cap 10/07/21 10/13/21 Rx (Colace) ferrous sulfate 325 mg (65 mg 0 mg PO Q OTHER DAY 10/07/21 10/13/21 History iron) tablet (iron) food supplemt, lactose-reduced 1 ea PO DAILY 10/07/21 10/13/21 History (Ensure) multivitamin 1 tab PO DAILY 10/07/21 10/13/21 History naproxen 500 mg tablet 500 mg PO BID PRN 10/07/21 10/13/21 History sennosides 8.6 mg capsule (senna) 8.6 mg PO DAILY PRN #30 cap 10/07/21 10/13/21 Rx Patient History Medical History (Updated 10/13/21 @ 12:04 by Valerie Alston, RN) Head and neck cancer 2010; treated surgically + radiation History of back injury History of kidney stones History of nephrolithotomy with removal of calculi Hypothyroidism Osteoarthritis Reducible right inguinal hernia Surgical History History of cancer surgery head and neck cancer 2010 History of colonoscopy History of cystoscopy with stone extraction History of open reduction and internal fixation (ORIF) procedure Left wrist Family History Other Family history non-contributory Social History (Updated 10/13/21 @ 12:03 by Valerie Alston RN) Smoking Status: Never smoker Tobacco Type: Cigarettes Second Hand Exposure: No; Hx Alcohol Use: No Hx Substance Use: No Preferred Language: Yemeni Communication Ability: Effective Esthetician Facialist Required: No Beliefs That Will Affect Care: None marital status: Current Living Situation: Alone current occupational status: retired How many Children do You have: 1 Feels Safe at Home: Yes during the past year weight has: remained stable Assistive Devices: Glasses and Walker Physical Exam Physical Exam: pt refusing exam. will not allow me to exam him . on appearance he is in considerable pain. + large incarcerated right inguinal hernia. Results & Data ([facility]) Vital Signs (Past 12 Hours) Vital Signs Temp Pulse Resp BP Pulse Ox 10/21/21 19:48 35.4 C L 75 16 201/80 H 97 PG Care Time/CCT Total # of Minutes Spent Total Time Spent with Patient: Total time spent is greater than 50% in coordination of care (as documented) at patient's floor/unit and/or counseling patient: Coding Level of Care Code 96278 Initial Inpt Care Lvl 3 Diagnoses Incarcerated hernia K46.0 Hypertension I10 Hypothyroid E03.9
[2021-10-21 21:24] LABS: Basophils # (auto) 0.03 K/uL (0-0.2); Basophils % (auto) 0.3 %; Eosinophils # (auto) 0.08 K/uL (0-0.5); Eosinophils % (auto) 0.8 %; Hematocrit (blood only) 46.3 % (42-52); Hemoglobin 15.6 g/dL (14.0-18.0); Immature Granulocytes # (auto) 0.01 K/uL (0.00-0.02); Immature Granulocytes % (auto) 0.1 %; Lymphocytes # (auto) 1.26 K/uL (1.2-3.4); Mean Corpuscular Hgb Conc 33.7 g/dL (32-36); Mean Platelet Volume 10.4 fL (7.4-10.4); Monocytes # (auto) 0.57 K/uL (0.11-0.59); Monocytes % (auto) 5.9 %; Neutrophils # (auto) 7.76 K/uL (1.4-6.5); Neutrophils % (auto) 79.9 %; Platelet Count 228 K/uL (130-400); RDW Standard Deviation 50.8 fL (36.4-46.3); Red Blood Count 5.03 M/uL (4.7-6.1); White Blood Count 9.71 K/uL (4.8-10.8)
[2021-10-21] MEDS ORDERED: EPINEPHrine INJ 1 MG/ML AMP ONE (21:26)
[2021-10-21] MEDS ORDERED: BUPIVACAINE 0.5 % 5 MG/1 ML MPF 30ML VIAL ONE (21:27)
--- NOTE | 2021-10-21 21:27 | Anesthesiology Consultation ---
Date of Service October 21, 2021 Assessment & Plan (1) Encounter for pre-operative examination: Chart Review Chart Review: Acceptable Risk for Surgery (emergency surgery) and Patient NOT seen in Pre Admission Testing Consults Requested none History Surgery Operation Date: 10/21/21 21:30 Proposed Procedures p Laparoscopic Right Incarcerated Inguinal Hernia Repair, Possible Open(Right) - Salvador Herrera, DO Height/Weight Height: 5 ft 7 in Allergies Allergy/AdvReac Type Severity Reaction Status Date / Time Penicillins Allergy Mild Swelling Verified 10/13/21 10:54 of Lip/Tongue/Throat Medications Home Medications Medication Instructions Recorded Confirmed Last Taken levothyroxine 112 mcg tablet 112 mcg PO QAM 07/08/21 10/13/21 10/02/21 ascorbic acid (vitamin C) 250 mg 0 mg PO DAILY 10/07/21 10/13/21 Unknown tablet (Vitamin C) cyanocobalamin (vitamin B-12) 500 0 mcg PO DAILY 10/07/21 10/13/21 Unknown mcg tablet (Vitamin B-12) docusate sodium 100 mg capsule 100 mg PO DAILY PRN #30 cap 10/07/21 10/13/21 Unknown (Colace) ferrous sulfate 325 mg (65 mg 0 mg PO Q OTHER DAY 10/07/21 10/13/21 Unknown iron) tablet (iron) food supplemt, lactose-reduced 1 ea PO DAILY 10/07/21 10/13/21 Unknown (Ensure) multivitamin 1 tab PO DAILY 10/07/21 10/13/21 Unknown naproxen 500 mg tablet 500 mg PO BID PRN 10/07/21 10/13/21 Unknown sennosides 8.6 mg capsule (senna) 8.6 mg PO DAILY PRN #30 cap 10/07/21 10/13/21 Unknown NPO Date Last Intake of Fluids: 10/21/21 Time Last Intake of Fluids: 18:00 Date Last Intake of Solids: 10/21/21 Time Last Intake of Solids: 18:00 Last Intake of Solids 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 [employer] Past Medical History Medical History Head and neck cancer 2010; treated surgically + radiation History of back injury History of kidney stones History of nephrolithotomy with removal of calculi Hypothyroidism Osteoarthritis Reducible right inguinal hernia Past Family History Family History Other Family history non-contributory Past Surgical History Surgical History History of cancer surgery head and neck cancer 2011 History of colonoscopy History of cystoscopy with stone extraction History of open reduction and internal fixation (ORIF) procedure Left wrist Social History Smoking Status: Never smoker Hx Alcohol Use: No Hx Substance Use: No substance use type: does not use Physical Exam Vital Signs Last Vital Signs Temp 35.4 C L 10/21/21 19:48 Pulse 75 10/21/21 19:48 Resp 16 10/21/21 19:48 BP 201/80 H 10/21/21 19:48 Pulse Ox 97 10/21/21 19:48 Testing Laboratory Results 10/21/21 21:13 Electrocardiogram Date: 10/21/21 Findings: + NSR @ (82), + LVH and + NSST changes repolarization abnormality Chest X-Ray Date: 10/21/21 XR chest 1V portable HISTORY: 81 years-old Male Pre-op preoperative exam. No acute chest complaints COMPARISON: CT abdomen and pelvis 10/07/2021, chest CT 07/09/2018. TECHNIQUE: Semierect AP view of the chest FINDINGS: Aneurysmal dilation of the ascending thoracic aorta redemonstrated. The patient is mildly rotated. Mild widening of the mediastinum is likely accentuated by positioning. Cardiomegaly. No pneumothorax, large pleural effusion or overt pulmonary edema. Mild linear subsegmental bibasilar densities. Degenerative c hanges of the shoulders and spine. IMPRESSION: 1. Cardiomegaly with thoracic aortic aneurysmal dilation redemonstrated. 2. Mild bibasilar atelectasis. ACT 112: Negative or not required by law. The above report was generated using voice recognition software. It may contain grammatical, syntax or spelling errors. Electronically signed by: Geovanni Echeverria M.D. 10/21/2021 8:51 PM
[2021-10-21] MEDS ORDERED: PHENYLEPHRINE 100MCG/ML 5ML SYR IV PRN (21:31)
[2021-10-21] MEDS ORDERED: HYDROmorphone INJ 1 MG/ML SYRINGE IV PRN (21:31)
[2021-10-21] MEDS ORDERED: ATROPINE SULFATE 0.1 MG/ML 10ML SYR IV PRN (21:31)
[2021-10-21] MEDS ORDERED: ONDANSETRON INJ 2 MG/ML 2 ML VIAL IV PRN (21:31)
[2021-10-21] MEDS ORDERED: ePHEDrine sulfate 50 MG/ML AMP IV PRN (21:31)
[2021-10-21] MEDS ORDERED: MEPERIDINE HCL 25 MG/ML CARP/VIAL IV PRN (21:31)
[2021-10-21] MEDS ORDERED: fentaNYL citrate 100 MCG/2 ML VIAL IV PRN (21:31)
[2021-10-21 21:34] LABS: INR 1.1 (0.9-1.1); Prothrombin Time 10.8 Seconds (9.0-12.0)
[2021-10-21] MEDS ORDERED: fentaNYL citrate 100 MCG/2 ML VIAL ONE (21:34)
[2021-10-21 21:42] LABS: Albumin Globulin Ratio 1.4 (0.9-2); Albumin Level 4.4 gm/dl (3.4-5.0); BUN Creatinine Ratio 18.7 (10-20); Bilirubin,Total 1.4 mg/dl (0.2-1.0); Creatinine Clr Calc Pharmacy 46.9 ml/min; Est GFR (Non-African American) 54.3 ml/min; Globulin 3.1 gm/dl (2.5-4.0); Potassium 4.2 mmol/L (3.5-5.1); Total Protein 7.5 gm/dl (6.0-8.3)
[2021-10-21] MEDS ORDERED: CLINDAMYCIN 600 MG/54 ML D5W IV ONE ×2 (22:02→22:19)
[2021-10-21] MEDS ORDERED: SUCCINYLCHOLINE 100MG/5ML SYR IV ONE (22:19)
[2021-10-21] MEDS ORDERED: DEXAMETHASONE SOD INJ 4 MG/ML VIAL ONE (22:19)
[2021-10-21] MEDS ORDERED: PHENYLEPHRINE HCL 10 MG/ML VIAL ONE (22:19)
[2021-10-21] MEDS ORDERED: PROPOFOL IV EMULSION 10 MG/ML 20 ML VIAL IV ONE (22:19)
[2021-10-21] MEDS ORDERED: LIDOCAINE 2% 2 ML VIAL/AMP(20MG/ML) INFIL ONE (22:19)
[2021-10-21] MEDS ORDERED: ONDANSETRON INJ 2 MG/ML 2 ML VIAL ONE (22:19)
[2021-10-21] MEDS ORDERED: ROCURONIUM BROMIDE 10 MG/ML 5 ML VIAL IV ONE (22:19)
[2021-10-21] MEDS ORDERED: NEOSTIGMINE METHYLSULFATE 1 MG/ML 10ML VIAL ONE (22:24)
[2021-10-21] MEDS ORDERED: GLYCOPYRROLATE 0.2 MG/ML VIAL ONE (22:24)
[2021-10-21] MEDS ORDERED: CLINDAMYCIN 900 MG in DEXTROSE 5% 50 ML IV ONE (22:51)
--- NOTE | 2021-10-21 22:52 | Operative Report ---
PG Post Operative Report Pre & Post Diagnosis Operation Date: 10/21/21 21:30 Pre-Op Diagnosis: Right Incarcerated Inguinal Hernia Post-Op Diagnosis: Right Incarcerated Inguinal Hernia I identified the patient and participated in the time-out.: Yes Procedure Operation Date: 10/21/21 21:30 Actual Procedures p Laparoscopic Right Incarcerated Inguinal Hernia Repair with Mesh(Right) - Salvador Herrera DO Surgeon Salvador Herrera DO Filling Carrier cornelia Cisneros Estimated Blood Loss 5 Findings Consistent with Post-Op Diagnosis Specimens none Description of Procedure After informed consent was obtained the patient was taken the operating room and placed in supine position. After successful intubation a Garcia catheter was placed sterilely and the abdomen was shaved and sterilely prepped and draped in usual fashion. I began with a supraumbilical incision with an 11 blade scalpel. This was carried down through the soft tissue using cautery. The anterior rectus fascia was opened using cautery and two #0 Vicryl stay sutures were placed. Peritoneum was entered using blunt finger penetration and a finger sweep was performed. A 12 mm Lucas trocar was placed and the abdomen was insufflated to 18 mmHg. Laparoscope was inserted and the abdomen examined 360. There was an incarcerated right inguinal hernia with some ischemic bowel. I was able to place two left mid abdominal 5 mm trochars. The patient was then placed in a steep Trendelenburg position. Using minimal traction as well as pushing on the hernia externally I was able to rather easily reduce the small bowel contents into the abdomen. Again there was engorgement and ischemia but no evidence of infarction. The anatomy in the right groin was grossly dis torted. It was difficult to find the anatomy of the spermatic cord. I was able to open the hernia sac laterally and peel it medially although I was unable to safely excise the hernia sac in 360. I placed a 10 cm circular surgimesh into the abdomen and unrolled it. I placed such that the antiadhesive barrier was facing the abdominal cavity. It covered the hernia defect nicely for several centimeters in all directions. There were some small bowel adhesed to the right lower quadrant. Traction countertraction and sharp scissor lysis was used to take down these adhesions so that I could safely tacked the mesh Next I tacked it with a protack device with several tacks superiorly above the iliopubic tract. I made sure to be able to palpate the tacker before firing it. I placed 1 tack into the pubic tubercle itself. After I had it repaired it looked around the abdomen and saw no other gross abnormalities. The small bowel was beginning to pink up and I did not believe it needed to be resected. If the patient deteriorates I would have a low threshold for a second look laparoscopy. We watched the mesh fold upon itself as we desufflated the abdomen. All the trochars were subsequently removed. The fascia of the camera port was closed using 0 Vicryl in [id number] fashion. All the wounds were irrigated and closed using 4-0 Monocryl. Marcaine with epinephrine was injected around the incisions for postoperative analgesia and skin glue used as a dressing. Patient was awakened extubated transferred recovery in stable condition. My physician real estate administrative assistant was present to the entire case was instrumental in prepping the patient running the camera during my dissection wound closure and dressing placement. I attest to the content of the Intraoperative Record and any orders documented therein. Any exceptions are noted below.
[2021-10-21] MEDS: LABETALOL HCL IV 5 MG/ML 20ML IV PRN ×2 (23:14→23:20)
[2021-10-21] MEDS ORDERED: hydrALAZINE HCL 20 MG/ML VIAL IV STA ×2 (23:39→23:44)
[2021-10-21] MEDS ORDERED: hydrALAZINE HCL 20 MG/ML VIAL ONE (23:40)
--- NOTE | 2021-10-21 23:46 | Anesthesiology Progress Note ---
Date of Service October 21, 2021 Anesthesia Post Procedure Vital Signs Vital Signs: Temp Pulse Pulse Resp BP BP Pulse Ox 10/21/21 23:31 63 14 177/77 H 94 10/21/21 23:20 63 17 179/78 H 98 10/21/21 23:10 36.6 C 77 16 209/93 H 100 10/21/21 21:05 73 20 97 10/21/21 19:48 35.4 C L 75 16 201/80 H 97 Pain Intensity Lower Abdomen: Pain Intensity: 2 Transfer of Care Handoff Completed per policy Notes Mental Status: alert / awake / arousable Patient Amnestic to Procedure: Yes Nausea / Vomiting: adequately controlled Pain: adequately controlled Airway Patency, RR, SpO2: stable & adequate BP & HR: stable & adequate and see Notes below Hydration State: stable & adequate Anesthetic Complications: no major complications apparent and Pt Satisfied with anesthetic care Notes: The patient is awake and doing well. He was hypertensive preoperatively as well as in the PACU. He has been treated with labetalol and hydralazine. He remains hypertensive but his blood pressure is improved compared to baseline. His other vital signs are stable.
[2021-10-22] MEDS ORDERED: MoRPHine SULFATE 4 MG/ML 1 ML CARP\\VIAL IV PRN (00:23)
[2021-10-22] MEDS ORDERED: LACTATED RINGER'S 1,000 ML IV SCH (00:23)
[2021-10-22] MEDS ORDERED: ONDANSETRON INJ 2 MG/ML 2 ML VIAL IV PRN (00:23)
[2021-10-22 01:40] LABS: Appearance Urine Clear (Clear); Bacteria Urine Automated Negative (Negative); Bilirubin Urine Negative (Negative); Blood Urine Negative (Negative); Color Urine Yellow; Glucose Urine UA Negative (Negative); Ketones Urine Negative (Negative); Leukocyte Esterase Urine Trace (Negative); Nitrite Urine Negative (Negative); Protein Urine Negative (Negative); RBC Urine Automated 0-4 /hpf (0-4); Urobilinogen Urine Negative (Negative)
--- NOTE | 2021-10-22 04:57 | Surgery Progress Note ---
Date of Service October 22, 2021 Assessment & Plan (1) Incarcerated hernia: Plan: Postoperative day #1 laparoscopic repair of right inguinal hernia As the patient was noted to have significant segment of small bowel involved in his hernia we have elected to keep him n.p.o. until the following are completed: -Await a.m. labs this morning -Assessed the patient's abdominal exam and this morning with Dr. Herrera Patient's physical exam and labs are acceptable we may consider situating diet this morning beginning with clear liquids Increase activity as able We will consider instituting DVT prevention with either subcutaneous heparin or Lovenox once we have reviewed his a.m. labs as above. doing much better. pre-op pain has resolved. will start clears and advance. ambulate today potential d/c tomorrow. Admission and Anticipated Discharge Date Admission Date: October 21, 2021 Subjective Patient is resting comfortably in bed. He does note some pain at his surgical incisions but overall reports that his pain is improved from what he experienced at time of admission. (Although the patient notes that he has not moved very much since his surgery) since his surgery he denies any bowel movement or flatus. He denies any nausea vomiting. Physical Exam Gastrointestinal (Abdomen): Abdomen is soft and nondistended. Bowel sounds are hypoactive. Incisions are intact with surgical Dermabond. Appropriate pain is noted near surgical incisions. (It should be noted the patient did not allow me to thoroughly palpate his abdomen this morning.) Results & Data ([facility]) Vital Signs (Past 12 Hours) Vital Signs Temp Pulse Pulse Resp BP BP Pulse Ox 10/22/21 02:22 36.2 C L 73 16 117/69 93 10/22/21 01:45 36.5 C 71 16 111/66 92 10/22/21 01:07 36.3 C L 71 16 131/68 93 10/22/21 00:23 36.4 C L 66 16 149/70 H 92 10/22/21 00:10 36.2 C L 66 18 154/72 H 99 10/22/21 00:05 36.2 C L 66 18 154/72 H 94 10/21/21 23:52 36.3 C L 64 16 158/70 H 92 10/21/21 23:40 60 15 171/75 H 92 10/21/21 23:31 63 14 177/77 H 94 10/21/21 23:20 63 17 179/78 H 98 10/21/21 23:10 36.6 C 77 16 209/93 H 100 10/21/21 21:05 73 20 97 10/21/21 19:48 35.4 C L 75 16 201/80 H 97 PG Care Time/CCT Total # of Minutes Spent Total Time Spent with Patient: Total time spent is greater than 50% in coordination of care (as documented) at patient's floor/unit and/or counseling patient: Coding Level of Care Code None Diagnoses Incarcerated hernia K46.0
[2021-10-22 06:26] LABS: Hematocrit (blood only) 42.4 % (42-52); Hemoglobin 14.3 g/dL (14.0-18.0); Immature Granulocytes # (auto) 0.01 K/uL (0.00-0.02); Immature Granulocytes % (auto) 0.1 %; Lymphocytes # (auto) 0.67 K/uL (1.2-3.4); Mean Corpuscular Hemoglobin 31.1 pg (25-34); Mean Corpuscular Volume 92.2 fL (80-100); Mean Platelet Volume 10.4 fL (7.4-10.4); Monocytes # (auto) 0.11 K/uL (0.11-0.59); Monocytes % (auto) 1.3 %; Neutrophils % (auto) 90.6 %; Platelet Count 216 K/uL (130-400); RDW Coefficient of Variation 15.4 % (11.5-14.5); White Blood Count 8.39 K/uL (4.8-10.8)
[2021-10-22] MEDS: LEVOTHYROXINE SODIUM 112 MCG TABLET PO SCH (06:33)
[2021-10-22 06:49] LABS: BUN Creatinine Ratio 19.8 (10-20); Calcium 9.2 mg/dl (8.5-10.1); Est GFR (African American) 71.3 ml/min; Est GFR (Non-African American) 61.5 ml/min; Potassium 4.8 mmol/L (3.5-5.1)
[2021-10-22 07:12] LABS: Mean Corpuscular Hgb Conc 33.7 g/dL (32-36)
--- NOTE | 2021-10-22 09:42 | Electrocardiogram Report ---
Test Reason : Blood Pressure : / mmHG Vent. Rate : 074 BPM Atrial Rate : 074 BPM P-R Int : 192 ms QRS Dur : 100 ms QT Int : 400 ms P-R-T Axes : 039 015 -21 degrees QTc Int : 444 ms Normal sinus rhythm Left ventricular hypertrophy with repolarization abnormality Abnormal ECG When compared with ECG of 07-OCT-2021 14:51, No significant change was found Confirmed by John Corona ([id number]) on 10/22/2021 9:42:47 AM Referred By: REFERRED SELF Confirmed By:John Corona
[2021-10-22] MEDS: ACETAMINOPHEN 1,000 MG/100 ML VIAL IV PRN (15:16)
[2021-10-22 18:31] LABS: Basophils # (auto) 0.01 K/uL (0-0.2); Basophils % (auto) 0.1 %; Eosinophils # (auto) 0.02 K/uL (0-0.5); Eosinophils % (auto) 0.1 %; Hematocrit (blood only) 42.3 % (42-52); Hemoglobin 14.1 g/dL (14.0-18.0); Immature Granulocytes # (auto) 0.03 K/uL (0.00-0.02); Immature Granulocytes % (auto) 0.2 %; Lymphocytes # (auto) 1.18 K/uL (1.2-3.4); Lymphocytes % (auto) 7.5 %; Mean Corpuscular Hemoglobin 31.3 pg (25-34); Mean Corpuscular Volume 93.8 fL (80-100); Mean Platelet Volume 10.4 fL (7.4-10.4); Monocytes # (auto) 1.46 K/uL (0.11-0.59); Monocytes % (auto) 9.2 %; Neutrophils % (auto) 82.9 %; Platelet Count 206 K/uL (130-400); RDW Coefficient of Variation 15.5 % (11.5-14.5); RDW Standard Deviation 53.4 fL (36.4-46.3); Red Blood Count 4.51 M/uL (4.7-6.1)
[2021-10-22 18:58] LABS: Mean Corpuscular Hgb Conc 33.3 g/dL (32-36)
--- NOTE | 2021-10-22 20:37 | XRay Report ---
KUB CLINICAL HISTORY: Generalized abdominal pain. FINDINGS: 2 AP, portable, supine abdominal radiographs are compared to study dated 02/28/2021 and betzy elated with abdominal CT dated 10/07/2021. There are mildly distended loops of small bowel which measur e up to 3.9 cm. Moderate fecal retention is noted in the colon. No evidence of intraperitoneal free a ir is seen on these supine images. Mesh material projects over the pelvis. Renal calculi seen by CT a re not visible on x-ray. Phleboliths are seen in the pelvis. The skeletal structures are osteopenic. There is moderate to advanced lumbosacral spondylosis. Arthritic change is seen in the hips. IMPRESSION: 1. There are mildly distended loops of small bowel as above. Correlate clinically for evidence of i leus versus obstruction. 2. Moderate colonic fecal retention. Electronically signed by: Alfred Bethea M.D. 10/22/2021 8:35 PM
[2021-10-22] MEDS: LACTATED RINGER'S 1,000 ML IV SCH (21:24)
[2021-10-23] MEDS: ACETAMINOPHEN 1,000 MG/100 ML VIAL IV PRN ×2 (05:46→13:46)
[2021-10-23] MEDS: LEVOTHYROXINE SODIUM 112 MCG TABLET PO SCH (05:48)
--- NOTE | 2021-10-23 06:17 | Surgery Progress Note ---
Date of Service October 23, 2021 Assessment & Plan (1) Incarcerated hernia: Plan: Postoperative day #2 laparoscopic repair of right inguinal hernia Patient's diet advanced to clear liquids yesterday Due to the patient's worsening abdominal pain and nausea last evening following were completed: -Repeat labs performed showing normal lactic acid level however significant leukocytosis was noted -KUB was performed showing findings concerning for postoperative ileus -Patient was made n.p.o. and intravenous fluids initiated for hydration We will continue n.p.o. status and IV fluid for hydration until improvement of bowel function noted Did discuss with the patient that he likely has an ileus as he had a significant segment of small bowel affected by his hernia and when hernia was reduced this may have caused an element of reperfusion injury resulting in ileus. The patient was reassured that hopefully this be a self-limited condition but will just take time to resolve. We will repeat labs this morning Increase activity as able Continue analgesics Continue antiemetics Add subcu heparin for DVT prevention as above. feeling much better today and wants to go home. no nausea. minimal pain. non-distended. +bs's. will d/c diaz. will let him try something to eat today. ambulate more today. awaiting bm prior to d/c. Admission and Anticipated Discharge Date Admission Date: October 21, 2021 Subjective Patient is resting comfortably in bed. He reports some generalized abdominal pain. He notes that last evening he developed some nausea without vomiting and slightly worsening abdominal pain. He says he has not passed any flatus or had a bowel movement since his surgery. Physical Exam Gastrointestinal (Abdomen): Abdomen is soft and nondistended. His bowel sounds are absent to hypoactive. He has generalized abdominal pain. His incisions are clean, dry, intact Results & Data ([facility]) Vital Signs (Past 12 Hours) Vital Signs Temp Pulse Resp BP Pulse Ox 10/22/21 22:25 36.9 C 69 16 133/68 93 10/22/21 18:57 36.8 C 79 18 168/75 H 91 PG Care Time/CCT Total # of Minutes Spent Total Time Spent with Patient: Total time spent is greater than 50% in coordination of care (as documented) at patient's floor/unit and/or counseling patient: Coding Level of Care Code None Diagnoses Incarcerated hernia K46.0
[2021-10-23 07:34] LABS: Basophils # (auto) 0.03 K/uL (0-0.2); Basophils % (auto) 0.3 %; Eosinophils # (auto) 0.09 K/uL (0-0.5); Hematocrit (blood only) 40.6 % (42-52); Hemoglobin 13.5 g/dL (14.0-18.0); Immature Granulocytes # (auto) 0.01 K/uL (0.00-0.02); Immature Granulocytes % (auto) 0.1 %; Lymphocytes # (auto) 1.12 K/uL (1.2-3.4); Lymphocytes % (auto) 12.6 %; Mean Corpuscular Hemoglobin 31.1 pg (25-34); Mean Corpuscular Volume 93.5 fL (80-100); Mean Platelet Volume 10.6 fL (7.4-10.4); Monocytes # (auto) 0.83 K/uL (0.11-0.59); Monocytes % (auto) 9.3 %; Neutrophils # (auto) 6.81 K/uL (1.4-6.5); Neutrophils % (auto) 76.7 %; Platelet Count 187 K/uL (130-400); RDW Coefficient of Variation 15.5 % (11.5-14.5); RDW Standard Deviation 53.1 fL (36.4-46.3); Red Blood Count 4.34 M/uL (4.7-6.1); White Blood Count 8.89 K/uL (4.8-10.8)
[2021-10-23 07:36] LABS: Mean Corpuscular Hgb Conc 33.3 g/dL (32-36)
[2021-10-23 08:16] LABS: BUN Creatinine Ratio 19.1 (10-20); Calcium 8.8 mg/dl (8.5-10.1); Creatinine Clr Calc Pharmacy 48.4 ml/min; Est GFR (African American) 72.1 ml/min; Est GFR (Non-African American) 62.2 ml/min; Potassium 4.4 mmol/L (3.5-5.1)
[2021-10-23] MEDS: HEPARIN SOD 5,000 UNIT/0.5 ML VIAL SQ SCH ×2 (09:39→20:12)
[2021-10-23] MEDS: LACTATED RINGER'S 1,000 ML IV SCH ×2 (10:19→22:22)
[2021-10-24] MEDS: LEVOTHYROXINE SODIUM 112 MCG TABLET PO SCH (05:51)
[2021-10-24] MEDS: HEPARIN SOD 5,000 UNIT/0.5 ML VIAL SQ SCH (09:12)
[2021-10-24] MEDS: LACTATED RINGER'S 1,000 ML IV SCH (12:34)
--- NOTE | 2021-10-24 13:33 | Surgery Progress Note ---
Date of Service October 24, 2021 Assessment & Plan (1) H/O right inguinal hernia repair: Plan: doing well ok for d/c instructions given. f/u in 7-10 days Admission and Anticipated Discharge Date Admission Date: October 21, 2021 Subjective pt seen. feeling well. wants to go home. bari diet. no pain or nausea. Physical Exam Physical Exam: alert. nad. abd: soft. expected incisional tenderness. wounds look good. Results & Data ([facility]) Vital Signs (Past 12 Hours) Vital Signs Temp Pulse Resp BP Pulse Ox 10/24/21 08:05 36.6 C 73 14 154/78 H 93 PG Care Time/CCT Total # of Minutes Spent Total Time Spent with Patient: Total time spent is greater than 50% in coordination of care (as documented) at patient's floor/unit and/or counseling patient: Coding Level of Care Code None Diagnoses H/O right inguinal hernia repair Z98.890; Z87.19
--- NOTE | 2021-10-25 20:20 | Discharge Summary ---
Date of Service October 25, 2021 Discharge Data Consultations 10/21/21 20:17 Consult General Surgery Stat Procedures Performed Operation Date: 10/21/21 21:30 Actual Procedures p Laparoscopic Right Incarcerated Inguinal Hernia Repair with Mesh(Right) - Salvador Herrera DO [place] [facility] Course (1) Incarcerated hernia: Patient presented [facility] on 10/22/2021 secondary to worsening abdominal pain. Patient had a known history of a right inguinal hernia. At time of presentation during this admission his hernia was noted to be incarcerated nonreducible at bedside. There is concern the patient may have had ischemic bowel associated with this condition so he was taken to the operating room semi-emergently by Dr. Herrera. Dr. Herrera performed a laparoscopic right inguinal hernia repair. The small bowel appeared viable at time of surgery and no small bowel resection was required. Patient's postoperative course was relatively uncomplicated however patient did develop a postoperative ileus which self resolved. His diet was advanced as tolerated and patient was deemed stable for discharge home on 10/25/2021. Instructed to follow-up with Dr. Herrera in the office in 1 to 2 weeks. Coding Level of Care Code None Diagnoses Incarcerated hernia K46.0
--- NOTE | 2021-10-31 09:30 | Coding Query ---
Your help is needed for correct coding of this account; please clarify if the patients Post-operative Ileus was: ( ) expected out of the surgery ( ) unexpected complication from the surgery (x )other please specify: patient came in with a small bowel obstruction from the hernia.... this was all pre-operative.... I do not believe the patient had a "post operative" ileus....so not only was this expected it was present before I operated and should not be diagnosed as a "post operative ileus"....thank you Thank you OLVIN Huynh CCS
== END 2021-10-24 14:05 | disposition home or self-care (01) | DRG 351 ==
LOC: ED 19:45 → ASU 21:29 → 3N 22:53

== ENCOUNTER 2023-01-09 14:39 | Inpatient (IN) ==
[2023-01-09] MEDS ORDERED: SODIUM CHLORIDE 0.9% 1000ML 1,000 ML IV ONE (15:16)
--- NOTE | 2023-01-09 15:22 | Emergency Department Note ---
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 gram/dose Powder 17 g PO DAILY lisinopril 2.5 mg tablet 2.5 mg PO DAILY acetaminophen 500 mg Tablet 1,000 mg PO Q8 dronabinol [Marinol] 2.5 mg Capsule 2.5 mg PO BID Rx Instructions: administer before lunch and evening meal/dinner Biotene Dry Mouth Oral Rinse Mouthwash 1 ea PO Q12 cyclobenzaprine 10 mg Tablet 10 mg PO TID PRN (Reason: Muscle Spasm) ondansetron 4 mg Tablet,Disintegrating 4 mg PO Q4 PRN (Reason: nausea or vomiting) sennosides-docusate sodium [Senokot-S] 8.6-50 mg Tablet 1 tab-cap PO .Q LUNCH PRN (Reason: Constipation) polyethylene glycol 3350 [Miralax] 17 gram/dose Powder 17 g PO .Q LUNCH PRN (Reason: Constipation) Referrals Referrals: Nino Quinn MD [Primary Care Provider] -
[2023-01-09 15:42] LABS: Albumin Globulin Ratio 1.4 (0.9-2); Albumin Level 3.5 gm/dl (3.4-5.0); BUN Creatinine Ratio 44.7 (10-20); Bilirubin,Total 0.6 mg/dl (0.2-1.0); Calcium 8.7 mg/dl (8.6-10.3); Creatinine Clr Calc Pharmacy 50.8 ml/min; Est GFR (African American) 77.5 ml/min; Est GFR (Non-African American) 66.9 ml/min; Globulin 2.5 gm/dl (2.5-4.0); Magnesium 1.8 mg/dl (1.7-2.4); Potassium 3.8 mmol/L (3.5-5.1)
[2023-01-09 15:43] LABS: Appearance Urine Turbid (Clear); Bacteria Urine Automated Negative (Negative); Bilirubin Urine Negative (Negative); Blood Urine 1+ (Negative); Color Urine Yellow; Glucose Urine UA Negative (Negative); Ketones Urine Negative (Negative); Leukocyte Esterase Urine 3+ (Negative); Nitrite Urine Positive (Negative); Protein Urine Trace (Negative); RBC Urine Automated 0-4 /hpf (0-4); Specific Gravity Urine 1.021 (1.000-1.030); Urobilinogen Urine Negative (Negative); WBC Urine Automated >30 /hpf (0-5)
[2023-01-09 15:46] LABS: Basophils # (auto) 0.03 K/uL (0-0.2); Basophils % (auto) 0.5 %; Eosinophils # (auto) 0.02 K/uL (0-0.50); Eosinophils % (auto) 0.3 %; Hematocrit (blood only) 30.3 % (42.0-52.0); Hemoglobin 10.4 g/dl (14.0-18.0); Immature Granulocytes # (auto) 0.02 K/uL (0.01-0.20); Immature Granulocytes % (auto) 0.3 %; Lymphocytes # (auto) 0.96 K/uL (1.2-3.4); Lymphocytes % (auto) 14.7 %; Mean Corpuscular Hemoglobin 31.1 pg (25.0-34.0); Mean Corpuscular Hgb Conc 34.3 g/dL (32.0-36.0); Mean Corpuscular Volume 90.7 fL (80.0-100.0); Mean Platelet Volume 11.1 fL (9.4-12.4); Monocytes # (auto) 0.59 K/uL (0.11-0.59); Neutrophils # (auto) 4.91 K/uL (1.40-6.50); Neutrophils % (auto) 75.2 %; Platelet Count 250 K/uL (130-400); RDW Coefficient of Variation 14.6 % (11.5-14.5); RDW Standard Deviation 47.9 fL (36.4-46.3); Red Blood Count 3.34 M/uL (4.70-6.10); White Blood Count 6.53 K/ul (4.8-10.8)
[2023-01-09 15:48] LABS: Troponin I High Sensitivity 18.2 pg/ml (0-20)
--- NOTE | 2023-01-09 16:00 | CT Scan Report ---
CT head/brain wo con CLINICAL HISTORY: weakness Technique: Contiguous axial CT images of the head were acquired from the base of the skull to the dileep vipul without intravenous contrast administration. Images were viewed in brain, subdural and bone [facility]. Automated dose lowering techniques and/or adjustment according to patient size were utilized for this exam. Comparison: None available at the time of this dictation. Findings: Areas of decreased attenuation are present in the periventricular and subcortical white matter bilate rally consistent with small vessel ischemic disease. Generalized cerebral atrophy with commensurate e nlargement of the ventricles, sulci, and cisterns is also present. There is no acute intracranial hem orrhage or evidence of acute territorial infarction. No shift of the midline structures, mass effect, or extra-axial abnormalities are shown. Atherosclerotic calcifications are present in the intracran ial segments of the internal carotid arteries. Imaged portions of the paranasal sinuses and mastoid air cells are clear. The orbits appear normal. There are no acute fractures of the calvaria or scalp swelling. Impression: No acute intracranial hemorrhage, no evidence of acute territorial infarction or other acute intracra nial disease process. ACT 112: Negative or not required by law. Electronically signed by: Jeronimo Beard M.D. 01/09/2023 3:59 PM
[2023-01-09 16:02] LABS: INR 1.1 (0.9-1.1); Partial Thromboplastin Ratio 0.9; Partial Thromboplastin Time 26.3 Seconds (21.0-31.0); Prothrombin Time 11.8 Seconds (9.0-12.0)
--- NOTE | 2023-01-09 16:32 | XRay Report ---
XR chest 1V portable CLINICAL HISTORY: weakness TECHNIQUE: Single frontal radiograph of the chest was obtained. Comparison: Comparison is made to left rib series 10/17/[address] chest 01/27/2022 FINDINGS: Exam is limited by patient rotation. The aorta is tortuous. The remainder of the cardiomediastinal si lhouette is unremarkable. The lungs are clear. No evidence of pleural effusion or pneumothorax. IMPRESSION: No acute chest disease. ACT 112: Negative or not required by law. Electronically signed by: Jeronimo Beard M.D. 01/09/2023 4:30 PM
[2023-01-09] MEDS ORDERED: OPTIRAY 320 500ml IV ONE (16:51)
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
--- NOTE | 2023-01-09 17:25 | CT Scan Report ---
CT angio chest dissec wo/w con CLINICAL HISTORY: eval for aortic pathology TECHNIQUE: Multidetector row helical CT of the chest was performed before and after injection of IV c ontrast. Coronal and sagittal reformations were obtained. Automated dose lowering techniques and/or a djustment according to patient size were utilized for this exam. Comparison: Comparison is made to CT chest 01/27/2022 FINDINGS: Lungs and pleura: Atelectasis versus scarring is seen in the dependent portions of the lungs. Heart and pericardium: Heart size is normal. No pericardial effusion. Vessels: No aortic dissection or intramural hematoma is seen. Ascending aorta measures [address], mildly aneurysmal. Mediastinum and mikael: Unremarkable. Chest wall and lower neck: Unremarkable. Abdomen: For findings below the diaphragm, please refer to CT of the abdomen dated the same. Bones: Degenerative changes in the thoracic spine. IMPRESSION: No evidence of acute aortic injury is seen. There is mild aneurysmal enlargement of the ascending aor ta. ACT 112: Negative or not required by law. Electronically signed by: Jeronimo Beard M.D. 01/09/2023 5:23 PM
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
[2023-01-09] MEDS ORDERED: POLYETHYLENE (MIRALAX) 17 GM PACK PO PRN ×2 (18:46→19:55)
[2023-01-09] MEDS ORDERED: DOCUSATE SODIUM/SENNA 50/8.6MG TAB PO PRN (18:46)
[2023-01-09] MEDS ORDERED: CYCLOBENZAPRINE HCL 10 MG TAB PO PRN (18:46)
[2023-01-09] MEDS ORDERED: SODIUM CHLORIDE 0.9% 1000ML 1,000 ML IV SCH (19:55)
[2023-01-09] MEDS ORDERED: ONDANSETRON INJ 2 MG/ML 2 ML VIAL IV PRN (19:55)
[2023-01-09] MEDS ORDERED: ENOXAPARIN INJ 40 MG/0.4 ML SYR SQ SCH (19:55)
[2023-01-09] MEDS: POLYETHYLENE (MIRALAX) 17 GM PACK PO SCH (20:31)
[2023-01-09] MEDS: DOCUSATE SODIUM/SENNA 50/8.6MG TAB PO SCH (20:31)
[2023-01-09] MEDS: TAMSULOSIN HCL 0.4 MG CAP PO SCH (20:31)
[2023-01-09] MEDS: ACETAMINOPHEN 500 MG TAB PO SCH (20:32)
[2023-01-09] MEDS ORDERED: NON-FORMULARY MEDICATION (Saliva Substitute Combo No.9 [Biotene Dry Mouth Oral Rinse] Mout PO SCH (21:00)
[2023-01-10] MEDS ORDERED: traMADol HCL 50 MG TABLET PO PRN
[2023-01-10] MEDS ORDERED: KETOROLAC TROMETHAMINE 15 MG/ML VIAL IV PRN
[2023-01-10] MEDS: LEVOTHYROXINE SODIUM 100 MCG TABLET PO SCH (05:31)
[2023-01-10] MEDS: ACETAMINOPHEN 500 MG TAB PO SCH ×3 (05:31→20:35)
[2023-01-10 08:01] LABS: Hematocrit (blood only) 23.4 % (42.0-52.0); Hemoglobin 7.8 g/dl (14.0-18.0); Mean Corpuscular Hemoglobin 30.8 pg (25.0-34.0); Mean Corpuscular Hgb Conc 33.3 g/dL (32.0-36.0); Mean Corpuscular Volume 92.5 fL (80.0-100.0); Mean Platelet Volume 11.3 fL (9.4-12.4); Platelet Count 207 K/uL (130-400); RDW Standard Deviation 49.7 fL (36.4-46.3); Red Blood Count 2.53 M/uL (4.70-6.10); White Blood Count 7.66 K/ul (4.8-10.8)
[2023-01-10 08:14] LABS: Creatinine Clr Calc Pharmacy 49.4 ml/min; Est GFR (African American) 74.9 ml/min; Est GFR (Non-African American) 64.6 ml/min; Potassium 4.2 mmol/L (3.5-5.1)
[2023-01-10] MEDS ORDERED: lisinopril 2.5 MG TAB PO SCH (09:00)
[2023-01-10] MEDS ORDERED: METOPROLOL SUCC 25MG EXT REL TAB PO SCH (09:00)
[2023-01-10] MEDS ORDERED: MAGNESIUM HYDROXIDE SUSP 30 ML UDC PO ONE (11:11)
[2023-01-10] MEDS ORDERED: SODIUM CHLORIDE 0.9% 1000ML 500 ML IV ONE (11:15)
[2023-01-10] MEDS ORDERED: CEFEPIME 2,000 MG in SYRINGE 0 ML IV SCH (11:15)
[2023-01-10] MEDS ORDERED: PANTOprazole 40 MG in SYRINGE 0 ML IV SCH (11:15)
[2023-01-10] MEDS: LIDOCAINE 5% 1 PATCH TD SCH (11:23)
[2023-01-10] MEDS: D5W AND NSS 1,000 ML IV SCH (11:37)
[2023-01-10] MEDS: CEFEPIME 1,000 MG in SYRINGE 0 ML IV SCH ×2 (12:32→23:40)
[2023-01-10] MEDS: ASCORBIC ACID 500 MG TAB PO SCH (12:34)
[2023-01-10] MEDS: CHOLECALCIFEROL 5,000 UNITS 125 MCG TAB PO SCH (12:34)
[2023-01-10] MEDS: CYANOCOBALAMIN (B-12) 500 MCG TABLET PO SCH (12:34)
[2023-01-10] MEDS: DOCUSATE SODIUM/SENNA 50/8.6MG TAB PO SCH ×2 (12:35→20:33)
[2023-01-10] MEDS: FERROUS SULFATE 325 MG TAB PO SCH (12:35)
[2023-01-10] MEDS: POLYETHYLENE (MIRALAX) 17 GM PACK PO SCH ×2 (12:35→15:06)
[2023-01-10 14:56] LABS: Basophils # (auto) 0.03 K/uL (0-0.2); Basophils % (auto) 0.3 %; Eosinophils # (auto) 0.02 K/uL (0-0.50); Eosinophils % (auto) 0.2 %; Hematocrit (blood only) 21.5 % (42.0-52.0); Hemoglobin 7.3 g/dl (14.0-18.0); Immature Granulocytes # (auto) 0.05 K/uL (0.01-0.20); Immature Granulocytes % (auto) 0.6 %; Lymphocytes # (auto) 1.54 K/uL (1.2-3.4); Lymphocytes % (auto) 17.8 %; Mean Corpuscular Hemoglobin 31.6 pg (25.0-34.0); Mean Corpuscular Volume 93.1 fL (80.0-100.0); Mean Platelet Volume 10.9 fL (9.4-12.4); Monocytes # (auto) 0.77 K/uL (0.11-0.59); Monocytes % (auto) 8.9 %; Neutrophils # (auto) 6.24 K/uL (1.40-6.50); Neutrophils % (auto) 72.2 %; Platelet Count 193 K/uL (130-400); RDW Coefficient of Variation 15.3 % (11.5-14.5); RDW Standard Deviation 50.2 fL (36.4-46.3); Red Blood Count 2.31 M/uL (4.70-6.10); White Blood Count 8.65 K/ul (4.8-10.8)
[2023-01-10] MEDS: droNABinol 2.5 MG CAP PO SCH ×2 (15:06→17:21)
[2023-01-10] MEDS ORDERED: SODIUM CHLORIDE 0.9% 250 ML IV PRN (15:12)
[2023-01-10 15:40] LABS: Polychromasia 1+
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
[2023-01-10] MEDS: PANTOprazole 40 MG in DEXTROSE 5% 100 ML IV SCH ×2 (17:17→22:29)
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
[2023-01-10 18:47] LABS: Allen Test Pos (Pos); Base Excess ABG -2.8 mEq/L (-9-1.8); HCO3 ABG 21 mmol/L (19-24); Oxygen Saturation ABG 99.8 % (90-95); PCO2 ABG 32 mmHg (35-46); PO2 ABG 157 mmHg (80-95); pH ABG 7.42 (7.35-7.45)
--- NOTE | 2023-01-10 19:06 | XRay Report ---
XR chest 1V portable HISTORY: 82 years-old Male Desaturation acute hypoxia COMPARISON: Chest radiograph 01/09/2023 TECHNIQUE: AP view of the chest FINDINGS: Cardiac silhouette is enlarged. Atherosclerosis of the aorta. No pneumothorax, pleural effusion, airs pace consolidation or pulmonary edema. Chronic right rib fractures. Degenerative changes of the shoul ders and spine. IMPRESSION: No acute process. ACT 112: Negative or not required by law. The above report was generated using voice recognition software. It may contain grammatical, syntax o r spelling errors. Electronically signed by: Geovanni Echeverria M.D. 01/10/2023 7:04 PM
[2023-01-10] MEDS ORDERED: ALBUT/IPRATROP 3MG/0.5MG NEB 3 ML VIAL ONE (19:15)
[2023-01-10] MEDS: SODIUM CHLOR 7% 4 ML NEB NEB SCH (20:24)
[2023-01-10] MEDS: ALBUT/IPRATROP 3MG/0.5MG NEB 3 ML VIAL NEB SCH (20:24)
[2023-01-10] MEDS ORDERED: GADOBUTROL 65ML VIAL IV ONE (20:27)
[2023-01-10] MEDS: TAMSULOSIN HCL 0.4 MG CAP PO SCH (20:34)
--- NOTE | 2023-01-10 21:16 | Magnetic Resonance Report ---
Exam(s): MRI HEAD W/WO Contrast EXAM: MR Head Without and With Intravenous Contrast CLINICAL HISTORY: Reason for exam: Lethargic, weak left side. TECHNIQUE: Magnetic resonance images of the head/brain without and with intravenous contrast in multiple planes. CONTRAST: Contrast must be dictated COMPARISON: No relevant prior studies available. FINDINGS: Restricted diffusion in the RIGHT parieto-occipital lobe, consistent with recent infarct. Corresponding signal dropout on the ADC maps, confirms this infarct. In addition, there are small patchy areas of infarct that extend along the RIGHT centrum semiovale. No acute intracranial hemorrhage. No midline shift or mass effect. The territorial hamilton-white matter differentiation is maintained throughout. Age-related cerebral volume loss. Periventricular and subcortical white matter T2 signal intensity, consistent with chronic microangiopathy. The visualized orbits appear grossly unremarkable. The calvarium is intact. The visualized paranasal sinuses and mastoid air cells are grossly clear. IMPRESSION: Restricted diffusion in the RIGHT parieto-occipital lobe, consistent with recent infarct. No midline shift or mass-effect. Communications: Call Doctor Other Electronically signed by: Soren Haley MD 01/10/23 21:15 PM
[2023-01-10] MEDS ORDERED: PHARMACIST DISCHARGE MED REC CONSULT PRN (21:27)
--- NOTE | 2023-01-10 21:29 | Communication Note ---
Date of Service: January 10, 2023 Made aware of Brain MRI report. Restricted diffusion in the RIGHT parieto-occipital lobe, consistent with recent infarct. No midline shift or mass-effect. AP Subacute ischemic CVA Aspirin suppository for secondary stroke prophylaxis. Subsequent dosing contingent on GI evaluation in light of GI bleed. Carotid Dopplers for additional stroke work-up. (Unable to give additional IV dye for CT angio head and neck recommended by neurologist due to IV dye load administered for CT chest abdomen pelvis earlier today. )
[2023-01-10] MEDS ORDERED: ASPIRIN 300 MG SUPP PR ONE (21:45)
--- NOTE | 2023-01-10 23:09 | Electrocardiogram Report ---
Test Reason : Blood Pressure : / mmHG Vent. Rate : 087 BPM Atrial Rate : 087 BPM P-R Int : 202 ms QRS Dur : 102 ms QT Int : 354 ms P-R-T Axes : 061 036 250 degrees QTc Int : 425 ms Normal sinus rhythm Abnormal ECG When compared with ECG of 21-OCT-2021 21:26, T wave inversion now evident in Anterolateral leads Confirmed by Tristin Michael ([id number]) on 01/10/2023 11:09:44 PM Referred By: REFERRED SELF Confirmed By:Tristin Michael
[2023-01-10] MEDS: MAGNESIUM SULFATE / D5W 1 GM/100 ML BAG IV SCH (23:40)
[2023-01-11] MEDS: MAGNESIUM SULFATE / D5W 1 GM/100 ML BAG IV SCH (01:15)
[2023-01-11 03:01] LABS: Basophils # (auto) 0.04 K/uL (0-0.2); Basophils % (auto) 0.5 %; Eosinophils # (auto) 0.09 K/uL (0-0.50); Eosinophils % (auto) 1.2 %; Hematocrit (blood only) 26.4 % (42.0-52.0); Immature Granulocytes # (auto) 0.07 K/uL (0.01-0.20); Immature Granulocytes % (auto) 0.9 %; Lymphocytes # (auto) 1.36 K/uL (1.2-3.4); Lymphocytes % (auto) 17.7 %; Mean Corpuscular Hemoglobin 30.7 pg (25.0-34.0); Mean Corpuscular Hgb Conc 34.1 g/dL (32.0-36.0); Mean Corpuscular Volume 90.1 fL (80.0-100.0); Mean Platelet Volume 10.6 fL (9.4-12.4); Monocytes % (auto) 9.1 %; Neutrophils # (auto) 5.44 K/uL (1.40-6.50); Neutrophils % (auto) 70.6 %; Platelet Count 152 K/uL (130-400); RDW Coefficient of Variation 15.4 % (11.5-14.5); RDW Standard Deviation 49.9 fL (36.4-46.3); Red Blood Count 2.93 M/uL (4.70-6.10)
[2023-01-11 03:08] LABS: Calcium 8.1 mg/dl (8.6-10.3); Potassium 3.9 mmol/L (3.5-5.1)
[2023-01-11 03:14] LABS: Chol HDL Ratio 3.9 (0-5); Creatinine Clr Calc Pharmacy 52.3 ml/min; Est GFR (African American) 80.3 ml/min; Est GFR (Non-African American) 69.3 ml/min
[2023-01-11] MEDS: PANTOprazole 40 MG in DEXTROSE 5% 100 ML IV SCH ×4 (03:18→19:56)
[2023-01-11] MEDS: D5W AND NSS 1,000 ML IV SCH ×2 (03:20→15:28)
[2023-01-11] MEDS: ACETAMINOPHEN 500 MG TAB PO SCH ×3 (04:29→19:51)
[2023-01-11] MEDS: LEVOTHYROXINE SODIUM 100 MCG TABLET PO SCH (04:29)
[2023-01-11] MEDS: SODIUM CHLOR 7% 4 ML NEB NEB SCH ×2 (07:06→20:12)
[2023-01-11] MEDS: ALBUT/IPRATROP 3MG/0.5MG NEB 3 ML VIAL NEB SCH ×2 (07:06→20:12)
[2023-01-11 08:10] LABS: Hematocrit (blood only) 27.5 % (42.0-52.0); Hemoglobin 9.2 g/dl (14.0-18.0); Mean Corpuscular Hgb Conc 33.5 g/dL (32.0-36.0); Mean Corpuscular Volume 92.6 fL (80.0-100.0); Mean Platelet Volume 10.9 fL (9.4-12.4); Platelet Count 151 K/uL (130-400); RDW Coefficient of Variation 15.8 % (11.5-14.5); RDW Standard Deviation 51.6 fL (36.4-46.3); Red Blood Count 2.97 M/uL (4.70-6.10); White Blood Count 8.29 K/ul (4.8-10.8)
[2023-01-11] MEDS ORDERED: ASPIRIN 300 MG SUPP PR SCH (09:00)
[2023-01-11] MEDS: ASCORBIC ACID 500 MG TAB PO SCH (09:13)
[2023-01-11] MEDS: POLYETHYLENE (MIRALAX) 17 GM PACK PO SCH ×2 (09:13→09:14)
[2023-01-11] MEDS: DOCUSATE SODIUM/SENNA 50/8.6MG TAB PO SCH ×2 (09:13→19:51)
[2023-01-11] MEDS: CHOLECALCIFEROL 5,000 UNITS 125 MCG TAB PO SCH (09:13)
[2023-01-11] MEDS: FERROUS SULFATE 325 MG TAB PO SCH (09:13)
[2023-01-11] MEDS: CYANOCOBALAMIN (B-12) 500 MCG TABLET PO SCH (09:13)
[2023-01-11] MEDS: LIDOCAINE 5% 1 PATCH TD SCH (09:14)
[2023-01-11] MEDS ORDERED: OPTIRAY 320 500ml IV ONE (09:45)
--- NOTE | 2023-01-11 10:07 | Pharmacy Report ---
- Date of Service January 11, 2023 - Pharmacy CVA/TIA Medication Review Medications to Prevent Stroke handout has been added to the patients discharge packet. Antiplatelet(s) * Aspirin suppository x1 last night. Per hospitalist and neurologist notes - ongoing antiplatelet dependent on GI evaluation given active GIB Cholesterol * Deferred for now due to NPO / failed swallow study. Per Dr. Davis, once patient is no longer NPO, likely to start high-intensity statin given sign ificant ICA stenosis. DVT Prophylaxis * Enoxaparin on hold given GIB. Ordered SCD knee. Therapeutic Anticoagulation * No history of Afib/Aflutter noted Type 2 Diabetes * Patient does not have T2DM
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
--- NOTE | 2023-01-11 10:27 | CT Scan Report ---
NECK CTA HISTORY: Right-sided parietal infarct. Stroke seen in MRI TECHNIQUE: Multiaxial CT images of the neck were performed following the intravenous administration o f contrast to evaluate the major cervical vessels. Maximum intensity projection images were also obta ined. All measurements were calculated based on NASCET criteria. A dose lowering technique was utili zed adhering to the principles of ALARA. COMPARISON STUDY: CT neck 01/27/2022. FINDINGS: The aortic arch and proximal great vessels are widely patent. There is mild multifocal herminia rowing within the bilateral subclavian arteries due to the atherosclerotic plaque. These vessels demo nstrate less than 20% stenosis. No significant stenosis within the right common carotid artery. There is a long segment of mild to moderate narrowing within the left common carotid artery of up to 40% d ue to the atherosclerotic plaque. There is an associated 4 mm penetrating ulcer within the mid left c ommon carotid artery on image 142. Focal area of 90% stenosis within the proximal left internal carot id artery on image 253. There is a small penetrating ulcer within the proximal left internal carotid artery on image 241 which measures 4 mm. The mid to distal bilateral internal carotid arteries appear patent. There is a 6 mm segment of high-grade stenosis within the proximal to mid right internal car otid artery demonstrating greater than 90% stenosis. This is best seen on axial image 257. There is m oderate atherosclerotic plaque within the bilateral carotid bifurcations. No significant stenosis, oc clusion, or dissection within the bilateral cervical vertebral arteries. Postoperative scarring again noted within the right lateral neck. No cervical lymphadenopathy. IMPRESSION: 1. Focal areas of high-grade stenosis within the bilateral internal carotid arteries as described abo ve of approximately 90%. 2. Long segment of mild to moderate narrowing within the left common carotid artery of up to 40%. 3. Small penetrating ulcers seen within the mid left common carotid artery and proximal left internal carotid artery. ACT 112: Negative or not required by law. Electronically signed by: Andrei Puente M.D. 01/11/2023 10:25 AM
--- NOTE | 2023-01-11 10:33 | CT Scan Report ---
CT angio head w con CLINICAL HISTORY: 82 years-old Male with Stroke seen in MRI. Acute stroke like symptoms COMPARISON STUDY: CTA neck of same day, brain MRI 01/10/2023 TECHNIQUE: Following the IV administration of 115 cc of Optiray, CT angiogram of the brain was perfor med from the skull base to the vertex. Images are reviewed in the axial, sagittal, and coronal planes . 3-D MIPS images are created and assessed. IV contrast was administered without complication. All me asurements were obtained according to NASCET criteria. A dose lowering technique was utilized adherin g to the principles of ALARA. FINDINGS: CT ANGIOGRAM OF THE BRAIN: Partially imaged high-grade stenosis of the distal cervical segment right ICA on image 1 series 3. Ad ditionally, there is approximately 70% stenosis involving the bilateral cavernous segments of the int ernal carotid arteries secondary to atherosclerotic plaque. The bilateral anterior cerebral arteries are patent. The right middle cerebral artery is diminutive i n size compared to the left and demonstrates moderate multifocal stenosis. There is a keee-xd-iujioep e luminal narrowing noted throughout the vertebral arteries distally. The basilar artery is patent. M ild/moderate stenosis throughout the posterior cerebral arteries. There is no aneurysm, high-grade st enosis, or proximal branch occlusion identified. Dural sinuses appear patent. Involutional changes with chronic microvascular ischemic disease. Acute infarcts in the right parieta l-occipital lobes with cytotoxic edema better seen on the comparison brain MRI. IMPRESSION: 1. Partially imaged high-grade stenosis of the distal cervical segment right ICA. Please refer to the CTA neck study of same day for additional discussion. 2. High-grade stenoses noted within the bilateral cavernous segments of the internal carotid arteries . 3. Moderate multifocal stenoses throughout the right middle cerebral artery branches. No high-grade s tenosis or arterial occlusion identified. 4. Acute right parieto-occipital infarcts are better seen on the comparison brain MRI. ACT 112: Negative or not required by law. The above report was generated using voice recognition software. It may contain grammatical, syntax o r spelling errors. Electronically signed by: Geovanni Echeverria M.D. 01/11/2023 10:31 AM
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
[2023-01-11] MEDS: droNABinol 2.5 MG CAP PO SCH ×2 (11:54→16:44)
[2023-01-11] MEDS: CEFEPIME 1,000 MG in SYRINGE 0 ML IV SCH ×2 (12:34→23:46)
[2023-01-11 13:12] LABS: Estimated Average Glucose 114 mg/dl; Hemoglobin A1C 5.6 % (4.5-5.6)
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
[2023-01-11] MEDS: ASPIRIN 300 MG SUPP PR SCH (18:17)
--- NOTE | 2023-01-11 19:00 | Electroencephalogram ---
EEG Procedure Note Date of Service January 11, 2023 Start / End Times Start Time: 11:54 End Time: 12:14 Referring Physician Antoni Davis MD History Altered mental status, cerebrovascular accident Home Medication List Medication Instructions Recorded Confirmed Type ferrous sulfate 325 mg (65 mg 0 mg PO DAILY 10/07/21 01/09/23 History iron) tablet (iron) ascorbic acid (vitamin C) 1,000 mg 1,000 mg PO DAILY 05/23/22 01/09/23 History tablet,extended release acetaminophen 500 mg tablet 1,000 mg PO Q8 01/09/23 01/09/23 History cholecalciferol (vitamin D3) 125 125 mcg PO DAILY 01/09/23 01/09/23 History mcg (5,000 unit) tablet (Vitamin D3) cyanocobalamin (vitamin B-12) 1,000 mcg PO DAILY 01/09/23 01/09/23 History 1,000 mcg tablet cyclobenzaprine 10 mg tablet 10 mg PO TID PRN Muscle Spasm 01/09/23 01/09/23 History dronabinol 2.5 mg capsule (Marinol) 2.5 mg PO BID 01/09/23 01/09/23 History enoxaparin 40 mg/0.4 mL 40 mg subcut DAILY 01/09/23 01/09/23 History subcutaneous syringe levothyroxine 100 mcg tablet 100 mcg PO DAILY 01/09/23 01/09/23 History lidocaine 5 % topical patch 1 patch topical QAM 01/09/23 01/09/23 History (Lidoderm) lisinopril 2.5 mg tablet 2.5 mg PO DAILY 01/09/23 01/09/23 History metoprolol succinate 25 mg 25 mg PO DAILY 01/09/23 01/09/23 History tablet,extended release 24 hr ondansetron 4 mg disintegrating 4 mg PO Q4 PRN nausea or vomiting 01/09/23 01/09/23 History tablet polyethylene glycol 3350 17 17 g PO .Q LUNCH PRN Constipation 01/09/23 01/09/23 History gram/dose oral powder (Miralax) polyethylene glycol 3350 17 17 g PO DAILY 01/09/23 01/09/23 History gram/dose oral powder (Miralax) saliva substitute combo no.9 1 ea PO Q12 01/09/23 01/09/23 History (Biotene Dry Mouth Oral Rinse mouthwash) sennosides 8.6 mg-docusate sodium 1 tab-cap PO BID 01/09/23 01/09/23 History 50 mg tablet (Senna with Docusate Sodium) sennosides 8.6 mg-docusate sodium 1 tab-cap PO .Q LUNCH PRN 01/09/23 01/09/23 History 50 mg tablet (Senokot-S) Constipation tamsulosin 0.4 mg capsule 0.4 mg PO HS 01/09/23 01/09/23 History Inpatient Medication List Acetaminophen (Acetaminophen 500 Mg Tab) 1,000 mg PO Q8 [facility] Stop: 02/08/23 21:59 Last Admin: 01/11/23 13:46 Dose: Not Given Documented By: Admin: 01/11/23 04:29 Dose: Not Given Documented By: Admin: 01/10/23 20:35 Dose: Not Given Documented By: Admin: 01/10/23 15:07 Dose: Not Given Documented By: Admin: 01/10/23 05:31 Dose: Not Given Documented By: Admin: 01/09/23 20:32 Dose: Not Given Documented By: TORREY Albuterol (Albut/Ipratrop 3mg/0.5mg Neb 3 Ml Vial) 3 ml NEB BID [facility]; Protocol Stop: 02/09/23 20:59 Last Admin: 01/11/23 07:06 Dose: 3 ml Documented By: Admin: 01/10/23 20:24 Dose: Not Given Documented By: BENNY Ascorbic Acid (Ascorbic Acid 500 Mg Tab) 1,000 mg PO DAILY [facility] Stop: 02/09/23 08:59 Last Admin: 01/11/23 09:13 Dose: Not Given Documented By: Admin: 01/10/23 12:34 Dose: Not Given Documented By: ERMA Aspirin (Aspirin 300 Mg Supp) 300 mg NM DAILY [facility] Stop: 02/10/23 16:44 Last Admin: 01/11/23 18:17 Dose: 300 mg Documented By: NASRIN Cyanocobalamin (Cyanocobalamin (B-12) 500 Mcg Tablet) 1,000 mcg PO DAILY [facility] Stop: 02/09/23 08:59 Last Admin: 01/11/23 09:13 Dose: Not Given Documented By: Admin: 01/10/23 12:34 Dose: Not Given Documented By: ERMA Cyclobenzaprine HCl (Cyclobenzaprine Hcl 10 Mg Tab) 10 mg PO TID PRN PRN Reason: Muscle Spasm Stop: 02/08/23 18:45 Last Admin: 01/09/23 22:02 Dose: 10 mg Documented By: TORREY Dronabinol (Dronabinol 2.5 Mg Cap) 2.5 mg PO BID@1130,1700 [facility] Stop: 02/09/23 11:29 Last Admin: 01/11/23 16:44 Dose: Not Given Documented By: Admin: 01/11/23 11:54 Dose: Not Given Documented By: Admin: 01/10/23 17:21 Dose: Not Given Documented By: Admin: 01/10/23 15:06 Dose: Not Given Documented By: ERMA Enoxaparin Sodium (Enoxaparin Inj 40 Mg/0.4 Ml Syr) 40 mg SQ HS [facility] Stop: 02/08/23 19:54 Last Admin: 01/09/23 20:30 Dose: 40 mg Documented By: TORREY Ferrous Sulfate (Ferrous Sulfate 325 Mg Tab) 325 mg PO DAILY [facility] Stop: 02/09/23 08:59 Last Admin: 01/11/23 09:13 Dose: Not Given Documented By: Admin: 01/10/23 12:35 Dose: Not Given Documented By: ERMA Dextrose/Sodium Chloride (D5w And Nss) 1,000 mls @ 100 mls/hr IV .Q10H [facility] Stop: 02/09/23 11:14 Last Admin: 01/11/23 15:28 Dose: 100 mls/hr Documented By: Infusion: 01/11/23 14:31 Dose: 100 mls/hr Documented By: Infusion: 01/11/23 09:13 Dose: 100 mls/hr Documented By: Admin: 01/11/23 03:20 Dose: 80 mls/hr Documented By: Infusion: 01/11/23 00:07 Dose: 80 mls/hr Documented By: Admin: 01/10/23 11:37 Dose: 80 mls/hr Documented By: ERMA Cefepime HCl 1,000 mg/ Syringe 10 mls @ 5 mls/min IV Q12H [facility] Stop: 01/20/23 11:59 Last Admin: 01/11/23 12:34 Dose: 5 mls/min Documented By: Admin: 01/10/23 23:40 Dose: 5 mls/min Documented By: Admin: 01/10/23 12:32 Dose: 5 mls/min Documented By: ERMA Pantoprazole Sodium 40 mg/ (Dextrose) 100 mls @ 20 mls/hr IV Q5H [facility] Stop: 02/09/23 15:29 Last Admin: 01/11/23 14:18 Dose: 8 mg/hr, 20 mls/hr Documented By: Infusion: 01/11/23 14:12 Dose: 8 mg/hr, 20 mls/hr Documented By: Admin: 01/11/23 09:12 Dose: 8 mg/hr, 20 mls/hr Documented By: Infusion: 01/11/23 08:18 Dose: 8 mg/hr, 20 mls/hr Documented By: Admin: 01/11/23 03:18 Dose: 8 mg/hr, 20 mls/hr Documented By: Infusion: 01/11/23 03:18 Dose: 8 mg/hr, 20 mls/hr Documented By: Admin: 01/10/23 22:29 Dose: 8 mg/hr, 20 mls/hr Documented By: Infusion: 01/10/23 22:17 Dose: 8 mg/hr, 20 mls/hr Documented By: Admin: 01/10/23 17:17 Dose: 8 mg/hr, 20 mls/hr Documented By: ERMA Levothyroxine Sodium (Levothyroxine Sodium 100 Mcg Tablet) 100 mcg PO DAILYBB [facility] Stop: 02/09/23 06:29 Last Admin: 01/11/23 04:29 Dose: Not Given Documented By: Admin: 01/10/23 05:31 Dose: 100 mcg Documented By: TORREY Lidocaine (Lidocaine 5% 1 Patch) 1 patch TD QAM [facility] Stop: 02/09/23 08:59 Last Admin: 01/11/23 09:14 Dose: 1 patch Documented By: Admin: 01/10/23 11:23 Dose: 1 patch Documented By: ERMA Miscellaneous (Remove Lidoderm Patch) 1 each N/A DAILY@2100 [facility] Stop: 02/08/23 20:59 Last Admin: 01/10/23 20:56 Dose: 1 each Documented By: Admin: 01/09/23 20:31 Dose: 1 each Documented By: TORREY Ondansetron HCl (Ondansetron Inj 2 Mg/Ml 2 Ml Vial) 4 mg IV Q6H PRN PRN Reason: Nausea Stop: 02/08/23 19:54 Last Admin: 01/09/23 23:54 Dose: 4 mg Documented By: TORREY Polyethylene Glycol (Polyethylene (Miralax) 17 Gm Pack) 17 gm PO DAILY [facility] Stop: 02/08/23 18:59 Last Admin: 01/11/23 09:13 Dose: Not Given Documented By: Admin: 01/10/23 12:35 Dose: Not Given Documented By: Admin: 01/09/23 20:31 Dose: 17 gm Documented By: TORREY Polyethylene Glycol (Polyethylene (Miralax) 17 Gm Pack) 17 gm PO DAILY [facility] Stop: 02/09/23 11:14 Last Admin: 01/11/23 09:14 Dose: Not Given Documented By: Admin: 01/10/23 15:06 Dose: Not Given Documented By: ERMA Senna/Docusate Sodium (Docusate Sodium/Senna 50/8.6mg Tab) 1 tab PO BID [facility] Stop: 02/08/23 20:59 Last Admin: 01/11/23 09:13 Dose: Not Given Documented By: Admin: 01/10/23 20:33 Dose: Not Given Documented By: Admin: 01/10/23 12:35 Dose: Not Given Documented By: Admin: 01/09/23 20:31 Dose: 1 tab Documented By: TORREY Sodium Chloride (Sodium Chlor 7% 4 Ml Neb) 4 ml NEB BIDR [facility] Stop: 02/09/23 18:59 Last Admin: 01/11/23 07:06 Dose: 4 ml Documented By: Admin: 01/10/23 20:24 Dose: Not Given Documented By: BENNY Tamsulosin HCl (Tamsulosin Hcl 0.4 Mg Cap) 0.4 mg PO HS [facility] Stop: 02/08/23 20:59 Last Admin: 01/10/23 20:34 Dose: Not Given Documented By: Admin: 01/09/23 20:31 Dose: 0.4 mg Documented By: TORREY Vitamin D (Cholecalciferol 5,000 Units 125 Mcg Tab) 5,000 units PO DAILY [facility] Stop: 02/09/23 08:59 Last Admin: 01/11/23 09:13 Dose: Not Given Documented By: Admin: 01/10/23 12:34 Dose: Not Given Documented By: ERMA Discontinued Medications Albuterol (Albut/Ipratrop 3mg/0.5mg Neb 3 Ml Vial) Confirm Administered Dose 3 ml .ROUTE .STK-MED ONE Stop: 01/10/23 19:16 Last Admin: 01/10/23 20:24 Dose: Not Given Documented By: BENNY Aspirin (Aspirin 300 Mg Supp) 300 mg NM NOW ONE Stop: 01/10/23 21:46 Last Admin: 01/10/23 22:17 Dose: 300 mg Documented By: BARB Gadobutrol (Gadobutrol 65ml Vial) 6.5 ml IV ONCE ONE Stop: 01/10/23 20:28 Last Admin: 01/10/23 20:28 Dose: 6.5 ml Documented By: PRADEEP Sodium Chloride (Nss 1000ml) 1,000 mls @ 999 mls/hr IV .Q1H1M ONE Stop: 01/09/23 16:16 Last Infusion: 01/09/23 17:15 Dose: 0 mls/hr Documented By: Admin: 01/09/23 15:32 Dose: 999 mls/hr Documented By: PRISCA Sodium Chloride (Nss 1000ml) 1,000 mls @ 100 mls/hr IV .Q10H [facility] Stop: 01/10/23 05:54 Last Infusion: 01/10/23 05:31 Dose: 0 mls/hr Documented By: Admin: 01/09/23 20:30 Dose: 100 mls/hr Documented By: TORREY Pantoprazole Sodium 40 mg/ (Syringe) 10 mls @ 5 mls/min IV BID [facility] Stop: 02/09/23 11:14 Last Admin: 01/10/23 14:20 Dose: 5 mls/min Documented By: ERMA Sodium Chloride (Nss 1000ml) 500 mls @ 999 mls/hr IV .Q31M ONE Stop: 01/10/23 11:45 Last Infusion: 01/10/23 12:19 Dose: 0 mls/hr Documented By: Admin: 01/10/23 11:48 Dose: 999 mls/hr Documented By: ERMA Magnesium Sulfate/Dextrose (Magnesium Sulfate / D5w) 1 gm in 100 mls @ 50 mls/hr IV Q2H [facility] Stop: 01/11/23 01:44 Last Infusion: 01/11/23 03:19 Dose: 0 mls/hr Documented By: Admin: 01/11/23 01:15 Dose: 50 mls/hr Documented By: Infusion: 01/11/23 01:15 Dose: 50 mls/hr Documented By: Admin: 01/10/23 23:40 Dose: 50 mls/hr Documented By: BARB Ioversol (Optiray 320 500ml) 118 ml IV ONCE ONE Stop: 01/09/23 16:52 Last Admin: 01/09/23 16:51 Dose: 118 ml Documented By: JAYV Ioversol (Optiray 320 500ml) 115 ml IV ONCE ONE Stop: 01/11/23 09:46 Last Admin: 01/11/23 09:45 Dose: 115 ml Documented By: JAVY Ketorolac Tromethamine (Ketorolac Tromethamine 15 Mg/Ml Vial) 15 mg IV Q6H PRN PRN Reason: Pain Stop: 01/15/23 00:00 Last Admin: 01/10/23 00:15 Dose: 15 mg Documented By: TORREY Magnesium Hydroxide (Magnesium Hydroxide Susp 30 Ml Udc) 30 ml PO NOW ONE Stop: 01/10/23 11:12 Last Admin: 01/10/23 15:05 Dose: Not Given Documented By: ERMA Metoprolol Succinate (Metoprolol Succ 25mg Ext Rel Tab) 25 mg PO DAILY [facility] Stop: 02/09/23 08:59 Last Admin: 01/10/23 11:18 Dose: Not Given Documented By: ERMA Description This is a 21 electrode EEG with a single channel dedicated to limited EKG. The electrodes were placed in accordance with the International 10-20 system. Interpretation Throughout his EEG recording, the patient has been somnolent and somewhat lethargic. There is no distinctive posterior wakeful activity. Background activity shows diffuse slowing, composed of generalized low amplitude, mostly frontal 2 to 3 Hz delta, and 5 to 7 Hz generalized theta waveforms. There is additional further slowing in delta range of right occipital and posterior temporal region. Photic stimulations do not induce posterior driving responses. Hyperventilation is not attempted due to patient's medical history. There are no electrographic seizures, or epileptogenic discharges. Impression: This EEG, recorded in the patient's somnolent/lethargic state, is abnormal due to diffuse slowing, consistent with bihemispheric dysfunction, as seen in different type of encephalopathies. Additional further slowing of right occipital and right posterior temporal region is suggestive of underlying structural pathology, as seen in acute cerebrovascular accident. There is no electrographic seizure or epileptogenic discharge.
[2023-01-11] MEDS ORDERED: ACETAMINOPHEN 1,000 MG/100 ML VIAL IV STA (19:48)
[2023-01-11] MEDS: TAMSULOSIN HCL 0.4 MG CAP PO SCH (19:51)
[2023-01-11 20:47] LABS: Hemoglobin 7.9 g/dl (14.0-18.0)
[2023-01-11] MEDS ORDERED: SODIUM CHLORIDE 0.9% 250 ML IV PRN (21:24)
[2023-01-12] MEDS: PANTOprazole 40 MG in DEXTROSE 5% 100 ML IV SCH ×6 (01:05→22:30)
[2023-01-12] MEDS: LEVOTHYROXINE SODIUM 100 MCG TABLET PO SCH (05:00)
[2023-01-12] MEDS: D5W AND NSS 1,000 ML IV SCH ×2 (06:00→15:36)
[2023-01-12 06:19] LABS: BUN Creatinine Ratio 38.7 (10-20); Calcium 7.8 mg/dl (8.6-10.3); Creatinine Clr Calc Pharmacy 56.3 ml/min; Est GFR (African American) 87.7 ml/min; Est GFR (Non-African American) 75.7 ml/min; Potassium 3.5 mmol/L (3.5-5.1)
[2023-01-12] MEDS: ALBUT/IPRATROP 3MG/0.5MG NEB 3 ML VIAL NEB SCH ×2 (07:20→19:13)
[2023-01-12] MEDS: SODIUM CHLOR 7% 4 ML NEB NEB SCH ×2 (07:20→19:14)
[2023-01-12] MEDS: DOCUSATE SODIUM/SENNA 50/8.6MG TAB PO SCH ×2 (08:01→20:03)
[2023-01-12] MEDS: CHOLECALCIFEROL 5,000 UNITS 125 MCG TAB PO SCH (08:01)
[2023-01-12] MEDS: POLYETHYLENE (MIRALAX) 17 GM PACK PO SCH ×2 (08:01)
[2023-01-12] MEDS: FERROUS SULFATE 325 MG TAB PO SCH (08:01)
[2023-01-12] MEDS: CYANOCOBALAMIN (B-12) 500 MCG TABLET PO SCH (08:01)
[2023-01-12] MEDS: ACETAMINOPHEN 1,000 MG/100 ML VIAL IV SCH ×2 (08:18→20:39)
[2023-01-12] MEDS: LIDOCAINE 5% 1 PATCH TD SCH (08:19)
[2023-01-12] MEDS: ASPIRIN 300 MG SUPP PR SCH (08:19)
[2023-01-12] MEDS: CEFEPIME 2,000 MG in SYRINGE 0 ML IV SCH ×2 (10:06→20:35)
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
[2023-01-12] MEDS: droNABinol 2.5 MG CAP PO SCH ×2 (12:22→15:35)
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
--- NOTE | 2023-01-12 17:09 | XRay Report ---
KUB HISTORY: coresafe placement COMPARISON: Abdomen and pelvis CT 01/09/2023. FINDINGS: A nasogastric tube enters the right mainstem bronchus and terminates in the right lung base . This removed. No renal calculi. No ureteral calculi. No pneumoperitoneum or pneumatosis. IMPRESSION: A nasogastric tube enters the right mainstem bronchus and terminates in the right lung base. This shanel uld be removed. This was discussed with Dr. Davis at 5:05 PM on 01/12/2023. ACT 112: Negative or not required by law. Electronically signed by: Andrei Puente M.D. 01/12/2023 5:07 PM
[2023-01-12] MEDS: TAMSULOSIN HCL 0.4 MG CAP PO SCH (20:03)
--- NOTE | 2023-01-13 00:24 | Electrocardiogram Report ---
Test Reason : Blood Pressure : / mmHG Vent. Rate : 073 BPM Atrial Rate : 073 BPM P-R Int : 192 ms QRS Dur : 104 ms QT Int : 386 ms P-R-T Axes : 051 -04 002 degrees QTc Int : 425 ms Normal sinus rhythm Inferior infarct , age undetermined Abnormal ECG When compared with ECG of 09-JAN-2023 14:46, No significant change was found Confirmed by Tristin Michael ([id number]) on 01/13/2023 12:23:32 AM Referred By: REFERRED SELF Confirmed By:Tristin Michael
[2023-01-13] MEDS: D5W AND NSS 1,000 ML IV SCH ×3 (01:41→12:06)
[2023-01-13] MEDS: PANTOprazole 40 MG in DEXTROSE 5% 100 ML IV SCH (02:58)
[2023-01-13 06:25] LABS: Basophils # (auto) 0.04 K/uL (0-0.2); Basophils % (auto) 0.6 %; Eosinophils # (auto) 0.19 K/uL (0-0.50); Eosinophils % (auto) 2.7 %; Hematocrit (blood only) 26.6 % (42.0-52.0); Immature Granulocytes # (auto) 0.03 K/uL (0.01-0.20); Immature Granulocytes % (auto) 0.4 %; Lymphocytes # (auto) 0.88 K/uL (1.2-3.4); Lymphocytes % (auto) 12.4 %; Mean Corpuscular Hgb Conc 33.8 g/dL (32.0-36.0); Mean Corpuscular Volume 91.7 fL (80.0-100.0); Monocytes # (auto) 0.59 K/uL (0.11-0.59); Monocytes % (auto) 8.3 %; Neutrophils # (auto) 5.35 K/uL (1.40-6.50); Neutrophils % (auto) 75.6 %; Platelet Count 165 K/uL (130-400); RDW Coefficient of Variation 16.2 % (11.5-14.5); RDW Standard Deviation 52.4 fL (36.4-46.3); White Blood Count 7.08 K/ul (4.8-10.8)
[2023-01-13 06:31] LABS: BUN Creatinine Ratio 29.6 (10-20); Calcium 8.4 mg/dl (8.6-10.3); Creatinine Clr Calc Pharmacy 64.6 ml/min; Est GFR (African American) 95.3 ml/min; Est GFR (Non-African American) 82.2 ml/min; Potassium 3.3 mmol/L (3.5-5.1)
[2023-01-13] MEDS: ALBUT/IPRATROP 3MG/0.5MG NEB 3 ML VIAL NEB SCH ×2 (07:16→19:18)
[2023-01-13] MEDS: SODIUM CHLOR 7% 4 ML NEB NEB SCH ×2 (07:17→19:18)
[2023-01-13] MEDS: LEVOTHYROXINE SODIUM 100 MCG TABLET PO SCH (07:33)
[2023-01-13] MEDS: ACETAMINOPHEN 1,000 MG/100 ML VIAL IV SCH ×2 (08:00→21:00)
[2023-01-13] MEDS: CHOLECALCIFEROL 5,000 UNITS 125 MCG TAB PO SCH (08:02)
[2023-01-13] MEDS: POLYETHYLENE (MIRALAX) 17 GM PACK PO SCH (08:02)
[2023-01-13] MEDS: CYANOCOBALAMIN (B-12) 500 MCG TABLET PO SCH (08:02)
[2023-01-13] MEDS: FERROUS SULFATE 325 MG TAB PO SCH (08:02)
[2023-01-13] MEDS: DOCUSATE SODIUM/SENNA 50/8.6MG TAB PO SCH ×2 (08:02→21:00)
[2023-01-13] MEDS: LIDOCAINE 5% 1 PATCH TD SCH (08:03)
[2023-01-13] MEDS: ASPIRIN 300 MG SUPP PR SCH (08:07)
[2023-01-13] MEDS: CEFEPIME 2,000 MG in SYRINGE 0 ML IV SCH ×2 (08:07→21:00)
[2023-01-13] MEDS: PANTOprazole 40 MG in SYRINGE 0 ML IV SCH ×2 (08:59→21:00)
[2023-01-13] MEDS: droNABinol 2.5 MG CAP PO SCH ×2 (10:42→15:58)
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
[2023-01-13] MEDS: POTASSIUM CHLORIDE / WTR 10 MEQ/100 ML PLCT IV SCH ×4 (12:40→16:10)
[2023-01-13] MEDS ORDERED: FIBERSOURCE HN 1.2 CAL 1000 ML BAG NG SCH (14:00)
[2023-01-13] MEDS ORDERED: SODIUM CHLORIDE 0.65% NA SOLN 45 ML (OCEAN) ONE (14:56)
[2023-01-13] MEDS: TUBE FEEDING WATER FLUSH NG SCH ×3 (15:02→22:28)
[2023-01-13] MEDS: TAMSULOSIN HCL 0.4 MG CAP PO SCH (21:00)
[2023-01-14] MEDS: TUBE FEEDING WATER FLUSH NG SCH ×4 (01:05→11:22)
[2023-01-14] MEDS: LEVOTHYROXINE SODIUM 100 MCG TABLET PO SCH (06:53)
[2023-01-14] MEDS: ALBUT/IPRATROP 3MG/0.5MG NEB 3 ML VIAL NEB SCH ×2 (07:07→19:14)
[2023-01-14] MEDS: SODIUM CHLOR 7% 4 ML NEB NEB SCH ×2 (07:07→19:14)
[2023-01-14] MEDS: D5W AND NSS 1,000 ML IV SCH ×3 (08:18→08:57)
[2023-01-14] MEDS: ACETAMINOPHEN 1,000 MG/100 ML VIAL IV SCH ×2 (08:18→19:28)
[2023-01-14] MEDS: FERROUS SULFATE 325 MG TAB PO SCH (08:19)
[2023-01-14] MEDS: CYANOCOBALAMIN (B-12) 500 MCG TABLET PO SCH (08:19)
[2023-01-14] MEDS: DOCUSATE SODIUM/SENNA 50/8.6MG TAB PO SCH ×2 (08:19→19:30)
[2023-01-14] MEDS: CEFEPIME 2,000 MG in SYRINGE 0 ML IV SCH ×3 (08:19→19:29)
[2023-01-14] MEDS: CHOLECALCIFEROL 5,000 UNITS 125 MCG TAB PO SCH (08:19)
[2023-01-14] MEDS: POLYETHYLENE (MIRALAX) 17 GM PACK PO SCH (08:19)
[2023-01-14] MEDS: PANTOprazole 40 MG in SYRINGE 0 ML IV SCH ×3 (08:20→19:29)
[2023-01-14] MEDS: LIDOCAINE 5% 1 PATCH TD SCH (08:57)
[2023-01-14] MEDS ORDERED: MULTI VIT W/MINERALS LIQUID 15 ML UDP NG SCH (09:00)
[2023-01-14] MEDS ORDERED: MULTI VIT W/MINERALS LIQUID 15 ML UDP PO SCH (09:00)
[2023-01-14] MEDS: ASPIRIN 300 MG SUPP PR SCH (09:17)
[2023-01-14] MEDS: droNABinol 2.5 MG CAP PO SCH ×2 (10:47→16:46)
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
[2023-01-14] MEDS: HEPARIN SOD 5,000 UNIT/0.5 ML VIAL SQ SCH (19:28)
[2023-01-14] MEDS: TAMSULOSIN HCL 0.4 MG CAP PO SCH (19:31)
[2023-01-14] MEDS ORDERED: ALBUT/IPRATROP 3MG/0.5MG NEB 3 ML VIAL NEB PRN (20:04)
[2023-01-15] MEDS: D5W AND NSS 1,000 ML IV SCH (04:08)
[2023-01-15] MEDS: LEVOTHYROXINE SODIUM 100 MCG TABLET PO SCH (04:11)
[2023-01-15] MEDS ORDERED: MAGNESIUM SULFATE / D5W 1 GM/100 ML BAG IV ONE (04:27)
[2023-01-15] MEDS ORDERED: METOPROLOL TARTRATE 1 MG/ML VIAL IV STA (04:28)
[2023-01-15] MEDS: POTASSIUM CHLORIDE / WTR 10 MEQ/100 ML PLCT IV SCH ×7 (04:52→13:30)
[2023-01-15] MEDS: CHOLECALCIFEROL 5,000 UNITS 125 MCG TAB PO SCH (09:00)
[2023-01-15] MEDS: CYANOCOBALAMIN (B-12) 500 MCG TABLET PO SCH (09:00)
[2023-01-15] MEDS: FERROUS SULFATE 325 MG TAB PO SCH (09:01)
[2023-01-15] MEDS: POLYETHYLENE (MIRALAX) 17 GM PACK PO SCH (09:01)
[2023-01-15] MEDS: DOCUSATE SODIUM/SENNA 50/8.6MG TAB PO SCH ×2 (09:01→20:50)
[2023-01-15] MEDS: PANTOprazole 40 MG in SYRINGE 0 ML IV SCH ×2 (09:09→20:50)
[2023-01-15] MEDS: HEPARIN SOD 5,000 UNIT/0.5 ML VIAL SQ SCH ×2 (09:10→21:08)
[2023-01-15] MEDS: LIDOCAINE 5% 1 PATCH TD SCH (09:10)
[2023-01-15] MEDS: CEFEPIME 2,000 MG in SYRINGE 0 ML IV SCH (09:14)
[2023-01-15] MEDS: ASPIRIN 300 MG SUPP PR SCH (09:14)
[2023-01-15] MEDS: droNABinol 2.5 MG CAP PO SCH ×2 (11:19→18:12)
[2023-01-15] MEDS ORDERED: METOPROLOL TARTRATE 1 MG/ML VIAL IV PRN (12:50)
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
--- NOTE | 2023-01-15 15:26 | Fluoroscopy Report ---
FL video swallow CLINICAL HISTORY: 82 years-old Male with r/o aspiration. Dysphasia TECHNIQUE: Video fluoroscopic evaluation of swallowing was performed in the AP and lateral projection s by the speech pathology staff. The patient is fed thin liquid barium and mildly thick barium. FLUOROSCOPY TIME: 1.5 minutes. 511 images were submitted. COMPARISON STUDY: CTA chest 01/09/2023. 20.31 mGy Air KErma FINDINGS: There is normal abnormal hyoid excursion and epiglottic deflection resulting in aspiration with both consistencies followed by cough. Mild disordered oral pharyngeal transit. IMPRESSION: 1. Aspiration as above. 2. Please see the speech pathologist report for detailed findings and recommendations. ACT 112: Negative or not required by law. Electronically signed by: Geovanni Echeverria M.D. 01/15/2023 3:25 PM
[2023-01-15] MEDS ORDERED: DEXTROSE 10% 1,000 ML IV PRN (15:42)
[2023-01-15] MEDS ORDERED: TPN/PPN CONSULT PHARMACY STA (15:42)
[2023-01-15] MEDS ORDERED: PERIPHERAL TPN IV SCH (16:00)
[2023-01-15] MEDS ORDERED: [UNRECOGNIZED DRUG - OTHER] IV SCH (16:00)
[2023-01-15] MEDS ORDERED: TPN/PPN CONSULT PHARMACY PRN (16:10)
[2023-01-15] MEDS: TAMSULOSIN HCL 0.4 MG CAP PO SCH (20:51)
[2023-01-16] MEDS: LEVOTHYROXINE SODIUM 100 MCG TABLET PO SCH (06:59)
[2023-01-16] MEDS: CHOLECALCIFEROL 5,000 UNITS 125 MCG TAB PO SCH (07:58)
[2023-01-16] MEDS: DOCUSATE SODIUM/SENNA 50/8.6MG TAB PO SCH ×2 (07:58→20:02)
[2023-01-16] MEDS: CYANOCOBALAMIN (B-12) 500 MCG TABLET PO SCH (07:58)
[2023-01-16] MEDS: POLYETHYLENE (MIRALAX) 17 GM PACK PO SCH (07:59)
[2023-01-16] MEDS: FERROUS SULFATE 325 MG TAB PO SCH (07:59)
[2023-01-16] MEDS: D5W AND NSS 1,000 ML IV SCH ×3 (08:11→13:00)
[2023-01-16] MEDS: ASPIRIN 300 MG SUPP PR SCH (08:31)
[2023-01-16] MEDS: HEPARIN SOD 5,000 UNIT/0.5 ML VIAL SQ SCH (08:37)
[2023-01-16 08:38] LABS: Basophils # (auto) 0.05 K/uL (0-0.2); Basophils % (auto) 0.9 %; Eosinophils # (auto) 0.17 K/uL (0-0.50); Hematocrit (blood only) 31.9 % (42.0-52.0); Hemoglobin 10.9 g/dl (14.0-18.0); Immature Granulocytes # (auto) 0.03 K/uL (0.01-0.20); Immature Granulocytes % (auto) 0.5 %; Lymphocytes # (auto) 0.87 K/uL (1.2-3.4); Lymphocytes % (auto) 15.3 %; Mean Corpuscular Hemoglobin 30.9 pg (25.0-34.0); Mean Corpuscular Hgb Conc 34.2 g/dL (32.0-36.0); Mean Corpuscular Volume 90.4 fL (80.0-100.0); Mean Platelet Volume 10.7 fL (9.4-12.4); Monocytes # (auto) 0.55 K/uL (0.11-0.59); Monocytes % (auto) 9.7 %; Neutrophils # (auto) 4.01 K/uL (1.40-6.50); Neutrophils % (auto) 70.6 %; Platelet Count 228 K/uL (130-400); RDW Coefficient of Variation 16.4 % (11.5-14.5); RDW Standard Deviation 52.6 fL (36.4-46.3); Red Blood Count 3.53 M/uL (4.70-6.10); White Blood Count 5.68 K/ul (4.8-10.8)
[2023-01-16] MEDS: PANTOprazole 40 MG in SYRINGE 0 ML IV SCH ×3 (08:38→20:05)
[2023-01-16] MEDS: LIDOCAINE 5% 1 PATCH TD SCH (08:38)
[2023-01-16 08:49] LABS: BUN Creatinine Ratio 11.3 (10-20); Bilirubin,Total 1.2 mg/dl (0.2-1.0); Calcium 8.8 mg/dl (8.6-10.3); Est GFR (African American) 95.7 ml/min; Est GFR (Non-African American) 82.6 ml/min; Magnesium 1.9 mg/dl (1.7-2.4); Potassium 3.4 mmol/L (3.5-5.1)
--- NOTE | 2023-01-16 09:04 | Gastroenterology Progress Note ---
Date of Service January 16, 2023 Assessment & Plan (1) CVA (cerebral vascular accident): Plan: 82 year old male with history of carotid stenosis, CVA, squamous cell CA, HTN, head/neck CA, hypothyroidism admitted w/ acute CVA - GI asked to evalate for PEG placement. Pt agreeable. Please hold PM heparin today and AM heparin Sunday Please hold ASA Will attempt EGD w/ PEG placement on Sunday Earlier in admission there was clinical concern for upper GI bleeding, this will be evaluated during EGD w/ PEG placement Continue measure per GI consultation note We appreciate assistance in the management of any serological abnormality and corrections to include: hemoglobin >7, INR <2, platelets >50,000, potassium levels >3.5 but <5.3, and sodium levels within 5 points of the reference range prior to endoscopic evaluation. Admission and Anticipated Discharge Date Admission Date: January 09, 2023 Supervising Physician Co-Signing Physician Notes I personally saw and evaluated the patient on 01/16/2023 with CAROLYNE Manuel and agree with her findings and plan of care. 82 y/o M with PMH of throat cancer s/p radiation, atrial fibrillation, chronic systolic heart failure admitted with acute CVA who has now failed his swallow test. GI consulted for PEG tube placement. At bedside patient is AAOx3, abdomen is soft and non-tender, does have notable sarcopenia. He denies any history of abdominal surgeries and he is currently on BID subq heparin and rectal asa 300 mg daily. Discussed with patient and family member at bedside. Risks and benefits of PEG tube including but not limited to bleeding, infection, perforation discussed with them and they would like to proceed with PEG tube placement. Discussed that we need a good window to place this endoscopically and if unable to then surgery would need to be consulted. Will plan for PEG tube placement tomorrow. Ensure patient is NPO at midnight and hold heparin until PEG tube is completed. There was some concern for GI bleeding earlier in admission when patient developed melena so will also evaluate that tomorrow and I did discuss with them if he had a large ulcer where the PEG would need placed or bad esophagitis we would not be able to place PEG. Family had multiple questions about his potential for recovery after stroke which I explained they would need to discuss with primary/neurology as I am not sure what his chance for recovery is. Tania Leone, DO Gastroenterology and Hepatology Subjective GI was asked to re-evaluate for PEG. Pt is awake, alert and is able to provide history. Notes since CVA, unable to safely tolerate PO. Did attempt NG but due to his hx of oral/sinus CA, was unable to have this placed. He is interested and agreeable to PEG placement. Is on ASA and heparin. Video swallow 2022: Aspiration as above. Please see the speech pathologist report for detailed findings and recommendations. Review of Systems Review of Systems: All systems reviewed & are unremarkable except as noted in HPI & below Physical Exam Constitutional: WD/WN, vitals as above elderly male in bed, in no acute distress Respiratory: normal respiratory effort; no respiratory distress Cardiovascular: Rate/Rhythm: regular rate Gastrointestinal (Abdomen): normal bowel sounds, soft, nontender, no hepatosplenomegaly Skin: no rashes, warm and dry Results & Data Vital Signs (Past 12 Hours) Vital Signs Temp Pulse Pulse Pulse Resp BP Pulse Ox 01/16/23 07:42 01/16/23 07:09 36.4 C L 88 19 139/74 92 01/16/23 03:51 80 18 156/83 H 91 01/15/23 22:05 71 01/15/23 23:24 36.4 C L 71 16 144/65 H 97 O2 Del Method 01/16/23 07:42 Room Air 01/16/23 07:09 Room Air 01/16/23 03:51 Room Air 01/15/23 22:05 01/15/23 23:24 Room Air Laboratory Results 01/16/23 01/16/23 Range/Units 07:44 07:44 WBC 5.68 (4.8-10.8) K/ul RBC 3.53 L (4.70-6.10) M/uL Hgb 10.9 L (14.0-18.0) g/dl Hct 31.9 L (42.0-52.0) % MCV 90.4 (80.0-100.0) fL MCH 30.9 (25.0-34.0) pg MCHC 34.2 (32.0-36.0) g/dL RDW Std Deviation 52.6 H (36.4-46.3) fL RDW Coeff of Heidi 16.4 H (11.5-14.5) % Plt Count 228 (130-400) K/uL MPV 10.7 (9.4-12.4) fL Immature Gran % (Auto) 0.5 % Neut % (Auto) 70.6 % Lymph % (Auto) 15.3 % [place] % (Auto) 9.7 % Eos % (Auto) 3.0 % Baso % (Auto) 0.9 % Neut # (Auto) 4.01 (1.40-6.50) K/uL Lymph # (Auto) 0.87 L (1.2-3.4) K/uL [place] # (Auto) 0.55 (0.11-0.59) K/uL Eos # (Auto) 0.17 (0-0.50) K/uL Baso # (Auto) 0.05 (0-0.2) K/uL Immature Gran # (Auto) 0.03 (0.01-0.20) K/uL Sodium 138 (136-145) mmol/L Potassium 3.4 L (3.5-5.1) mmol/L Chloride 109 H (98-107) mmol/L Carbon Dioxide 23 (21-32) mmol/L Anion Gap 6 (3-11) BUN 9 (6-23) mg/dl Creatinine 0.80 (0.6-1.4) mg/dl Est Cr Clr Drug Dosing 65.0 ml/min Est GFR ( Amer) 95.7 ml/min Est GFR (Non-Af Amer) 82.6 ml/min BUN/Creatinine Ratio 11.3 (10-20) Glucose 63 L (70-99(Fasting)) mg/dl Calcium 8.8 (8.6-10.3) mg/dl Phosphorus 2.0 L (2.5-4.9) mg/dl Magnesium 1.9 (1.7-2.4) mg/dl Total Bilirubin 1.2 H (0.2-1.0) mg/dl AST 16 (13-39) U/L ALT 7 (7-52) U/L Alkaline Phosphatase 120 H (34-104) U/L
[2023-01-16] MEDS: droNABinol 2.5 MG CAP PO SCH ×2 (11:12→16:26)
[2023-01-16] MEDS ORDERED: DEXTROSE 10% 1,000 ML IV SCH (11:30)
--- NOTE | 2023-01-16 13:56 | Pharmacy Report ---
Pharmacy PN Initial Consult - Date of Service January 16, 2023 - Scope Pharmacy has been consulted to manage parenteral nutrition orders and order appropriate labs. As part of the Nutrition Support Team guidelines, pharmacy will work in conjunction with dietary when determining the patients caloric needs. - Subjective The patient is a 82 year old M admitted on 01/09/23 18:13 for LETHARGY, GENERALIZED WEAKNESS, POOR NUTRITION. Patient is to receive parenteral nutrition for prolonged NPO status. Pertinent PMH: * Throat cancer w/ severe oropharyngeal dysphagia - Objective Height: 5 ft 7 in Weight: 65.7 kg Diet: NPO Intake & Output (Last 24Hrs): Intake & Output 01/14/23 01/15/23 01/16/23 01/17/23 06:59 06:59 06:59 06:59 Intake Total 2430 / 2430 1470 / 1470 1600 / 1600 436.667 / 436.667 Output Total 2650 / 2650 1500 / 1500 2725 / 2725 Balance -220 / -220 -30 / -30 -1125 / -1125 436.667 / 436.667 Weight 66.9 kg 65.8 kg 65.7 kg 65.7 kg Laboratory Data (Last 24 Hrs):: 01/16/23 07:44 Sodium 138 Potassium 3.4 L Chloride 109 H Carbon Dioxide 23 BUN 9 Creatinine 0.80 Glucose 63 L Calcium 8.8 Phosphorus 2.0 L Magnesium 1.9 Total Bilirubin 1.2 H AST 16 ALT 7 Alkaline Phosphatase 120 H Nutrition Assessment:: Please refer to the Notes section of the EMR for the most recent leather stretcher note. - Assessment 01/16: * Will start PPN today for severe oropharyngeal dysphagia and failed swallow study in patient with throat cancer. Plan is to go to [place] tomorrow for PEG placement so hopefully only one day of PPN. * IV assess peripheral line and it is okay to use for PPN. * Appreciate macronutrient recommendations from registered dietitian. * Micronutrients will be replaced as needed: * Potassium, Phosphorus and Glucose all low today. * Chloride high. - Plan For day #1 of PN administration, the following will be ordered: Macronutrients Amino acids 66 grams/day Dextrose 78 grams/day Lipids 50 grams/day Micronutrients Sodium phosphate 15 mMol Sodium chloride 40 mEq Sodium acetate 40 mEq Potassium phosphate 15 mMol Potassium acetate 40 mEq Magnesium sulfate 4.06 mEq Calcium gluconate 4.65 mEq Multivitamins 10 mL Trace Elements 1 mL Thiamine 100 mg Total volume 1649 mL to be infused over 24 hrs will provide 1030 kcal/day Final osmolarity 836 mOsm/L (maximum for PPN is 900 mOsm/L) Labs to be ordered per PN order protocol Pharmacy will follow and adjust parenteral nutrition orders on a daily basis. Thank you.
--- NOTE | 2023-01-16 14:21 | Hospitalist Progress Note ---
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 Electronically signed by: Geovanni Echeverria M.D. 01/15/2023 3:25 PM (5) Constipation Constipation type: unspecified constipation type Qualified Code(s): K59.00 - Constipation, unspecified
[2023-01-16] MEDS ORDERED: [UNRECOGNIZED DRUG - OTHER] IV SCH (16:00)
[2023-01-16] MEDS ORDERED: PERIPHERAL TPN IV SCH (16:00)
[2023-01-16] MEDS ORDERED: CLINOLIPID 20% IV FAT EMULSION 250 ML IV SCH (16:00)
[2023-01-16] MEDS: POTASSIUM CHLORIDE / WTR 10 MEQ/100 ML PLCT IV SCH ×4 (18:02→21:17)
[2023-01-16] MEDS: TAMSULOSIN HCL 0.4 MG CAP PO SCH (20:03)
[2023-01-16] MEDS: STOP CLINOLIPID SCH (22:21)
[2023-01-17] MEDS: LEVOTHYROXINE SODIUM 100 MCG TABLET PO SCH (05:39)
[2023-01-17] MEDS: CYANOCOBALAMIN (B-12) 500 MCG TABLET PO SCH (07:50)
[2023-01-17] MEDS: CHOLECALCIFEROL 5,000 UNITS 125 MCG TAB PO SCH (07:50)
[2023-01-17] MEDS: DOCUSATE SODIUM/SENNA 50/8.6MG TAB PO SCH ×2 (07:50→22:05)
[2023-01-17] MEDS: POLYETHYLENE (MIRALAX) 17 GM PACK PO SCH (07:50)
[2023-01-17] MEDS: FERROUS SULFATE 325 MG TAB PO SCH (07:50)
[2023-01-17] MEDS: PANTOprazole 40 MG in SYRINGE 0 ML IV SCH ×2 (08:13→22:05)
[2023-01-17] MEDS: LIDOCAINE 5% 1 PATCH TD SCH (08:13)
--- NOTE | 2023-01-17 08:49 | Communication Note ---
Date of Service: January 17, 2023 Pt was seen and evaluated this AM. NPO for EGD w/ possible PEG placement. No family at bedside. All questions answered. Agreeable to PEG placement for nutrit ional support. 82 year old male with history of carotid stenosis, CVA, squamous cell CA, HTN, head/neck CA, hypothyroidism admitted w/ acute CVA. NPO Continue to hold heparin today Continue to hold ASA EGD w/ PEG placement today We appreciate assistance in the management of any serological abnormality and corrections to include: hemoglobin >7, INR <2, platelets >50,000, potassium levels >3.5 but <5.3, and sodium levels within 5 points of the reference range prior to endoscopic evaluation. Thank you for allowing us to participate in the care of this patient. Please call with any acute changes, questions or concerns. Please see addendum below with additional recommendation from my supervising physician. GI was called to bedside. Pt awake, alert and oriented and no longer wishes for PEG placement. EGD w/ PEG cancelled. Recall GI as needed. Will sign off. CAROLYNE Manuel We had planned for PEG tube placement today however when patient was called down to endoscopy he refused to come down and is now refusing PEG tube placement. He is AAOx3 and has the capacity to make that decision. Therefore, PEG tube and procedure not completed today. GI will sign off as patient refusing PEG but please call back with questions. Tania Leone, Gastroenterology and Hepatology
[2023-01-17] MEDS: droNABinol 2.5 MG CAP PO SCH ×2 (10:42→16:18)
--- NOTE | 2023-01-17 11:23 | Anesthesiology Consultation ---
Date of Service January 17, 2023 Assessment & Plan Chart Review Chart Review: Acceptable Risk for Surgery, Patient NOT seen in Pre Admission Testing and charge entry specialist initiated Consults Requested none History Surgery Operation Date: 01/11/23 16:30 Proposed Procedures p Esophagogastroduodenoscopy Dr Lenz - Noelle Lenz DO Operation Date: 01/17/23 16:30 Proposed Procedures p Esophagogastroduodenoscopy with Gastric Tube Placement Vasu Leone, DO Height/Weight Height: 5 ft 7 in Weight: 63.8 kg Allergies Allergy/AdvReac Type Severity Reaction Status Date / Time Penicillins Allergy Severe Swelling Verified 01/12/23 09:36 of Lip/Tongue/Throat Medications Home Medications Medication Instructions Recorded Confirmed Last Taken ferrous sulfate 325 mg (65 mg 0 mg PO DAILY 10/07/21 01/09/23 06/06/22 iron) tablet (iron) ascorbic acid (vitamin C) 1,000 mg 1,000 mg PO DAILY 05/23/22 01/09/23 06/06/22 tablet,extended release acetaminophen 500 mg tablet 1,000 mg PO Q8 01/09/23 01/09/23 Unknown cholecalciferol (vitamin D3) 125 125 mcg PO DAILY 01/09/23 01/09/23 Unknown mcg (5,000 unit) tablet (Vitamin D3) cyanocobalamin (vitamin B-12) 1,000 mcg PO DAILY 01/09/23 01/09/23 Unknown 1,000 mcg tablet cyclobenzaprine 10 mg tablet 10 mg PO TID PRN Muscle Spasm 01/09/23 01/09/23 Unknown dronabinol 2.5 mg capsule (Marinol) 2.5 mg PO BID 01/09/23 01/09/23 Unknown enoxaparin 40 mg/0.4 mL 40 mg subcut DAILY 01/09/23 01/09/23 Unknown subcutaneous syringe levothyroxine 100 mcg tablet 100 mcg PO DAILY 01/09/23 01/09/23 Unknown lidocaine 5 % topical patch 1 patch topical QAM 01/09/23 01/09/23 Unknown (Lidoderm) lisinopril 2.5 mg tablet 2.5 mg PO DAILY 01/09/23 01/09/23 Unknown metoprolol succinate 25 mg 25 mg PO DAILY 01/09/23 01/09/23 Unknown tablet,extended release 24 hr ondansetron 4 mg disintegrating 4 mg PO Q4 PRN nausea or vomiting 01/09/23 01/09/23 Unknown tablet polyethylene glycol 3350 17 17 g PO .Q LUNCH PRN Constipation 01/09/23 01/09/23 Unknown gram/dose oral powder (Miralax) polyethylene glycol 3350 17 17 g PO DAILY 01/09/23 01/09/23 Unknown gram/dose oral powder (Miralax) saliva substitute combo no.9 1 ea PO Q12 01/09/23 01/09/23 Unknown (Biotene Dry Mouth Oral Rinse mouthwash) sennosides 8.6 mg-docusate sodium 1 tab-cap PO BID 01/09/23 01/09/23 Unknown 50 mg tablet (Senna with Docusate Sodium) sennosides 8.6 mg-docusate sodium 1 tab-cap PO .Q LUNCH PRN 01/09/23 01/09/23 Unknown 50 mg tablet (Senokot-S) Constipation tamsulosin 0.4 mg capsule 0.4 mg PO HS 01/09/23 01/09/23 Unknown Active Medications Generic Name Dose Route Start Last Admin Trade Name Freq PRN Reason Stop Dose Admin Acetaminophen 1,000 mg 01/09/23 22:00 01/11/23 19:51 Acetaminophen 500 Mg Tab PO 02/08/23 21:59 Not Given Q8 ANGELA Ascorbic Acid 1,000 mg 01/10/23 09:00 01/11/23 09:13 Ascorbic Acid 500 Mg Tab PO 02/09/23 08:59 Not Given DAILY ANGELA Aspirin 300 mg 01/11/23 16:45 01/16/23 08:31 Aspirin 300 Mg Supp MI 02/10/23 16:44 300 mg DAILY ANGELA Administration Cyanocobalamin 1,000 mcg 01/10/23 09:00 01/17/23 07:50 Cyanocobalamin (B-12) 500 Mcg Tablet PO 02/09/23 08:59 Not Given DAILY [facility] Cyclobenzaprine HCl 10 mg 01/09/23 18:46 01/09/23 22:02 Cyclobenzaprine Hcl 10 Mg Tab PO 02/08/23 18:45 10 mg TID PRN Administration Muscle Spasm Dronabinol 2.5 mg 01/10/23 11:30 01/17/23 10:42 Dronabinol 2.5 Mg Cap PO 02/09/23 11:29 Not Given BID@1130,1700 ANGELA Enoxaparin Sodium 40 mg 01/09/23 19:55 01/09/23 20:30 Enoxaparin Inj 40 Mg/0.4 Ml Syr SQ 02/08/23 19:54 40 mg HS ANGELA Administration Ferrous Sulfate 325 mg 01/10/23 09:00 01/17/23 07:50 Ferrous Sulfate 325 Mg Tab PO 02/09/23 08:59 Not Given DAILY ANGELA Heparin Sodium (Porcine) 5,000 units 01/14/23 21:00 01/16/23 08:37 Heparin Sod 5,000 Unit/0.5 Ml Vial SQ 02/13/23 20:59 5,000 units Q12 ANGELA Administration Pantoprazole Sodium 40 mg/ 10 mls @ 5 mls/min 01/13/23 09:00 01/17/23 08:13 Syringe IV 02/12/23 08:59 5 mls/min BID ANGELA Administration Amino Acids 1,649 ml/ 1,649 mls @ 68.708 mls/hr 01/16/23 16:00 01/16/23 16:13 Nutrition (Parenteral) IV 01/17/23 15:59 68.7 mls/hr .Q24H ANGELA Administration Protocol Levothyroxine Sodium 100 mcg 01/10/23 06:30 01/17/23 05:39 Levothyroxine Sodium 100 Mcg Tablet PO 02/09/23 06:29 Not Given DAILYBB ANGELA Lidocaine 1 patch 01/10/23 09:00 01/17/23 08:13 Lidocaine 5% 1 Patch TD 02/09/23 08:59 1 patch QAM ANGELA Administration Miscellaneous 1 each 01/09/23 21:00 01/16/23 20:02 Remove Lidoderm Patch N/A 02/08/23 20:59 1 each DAILY@2100 ANGELA Administration Miscellaneous 1 each 01/16/23 22:00 01/16/23 22:21 Stop Clinolipid N/A 02/15/23 21:59 1 each DAILY@2200 ANGELA Administration Ondansetron HCl 4 mg 01/09/23 19:55 01/09/23 23:54 Ondansetron Inj 2 Mg/Ml 2 Ml Vial IV 02/08/23 19:54 4 mg Q6H PRN Administration Nausea Polyethylene Glycol 17 gm 01/09/23 19:00 01/17/23 07:50 Polyethylene (Miralax) 17 Gm Pack PO 02/08/23 18:59 Not Given DAILY ANGELA Senna/Docusate Sodium 1 tab 01/09/23 21:00 01/17/23 07:50 Docusate Sodium/Senna 50/8.6mg Tab PO 02/08/23 20:59 Not Given BID ANGELA Tamsulosin HCl 0.4 mg 01/09/23 21:00 01/16/23 20:03 Tamsulosin Hcl 0.4 Mg Cap PO 02/08/23 20:59 Not Given HS ANGELA Vitamin D 5,000 units 01/10/23 09:00 01/17/23 07:50 Cholecalciferol 5,000 Units 125 Mcg Tab PO 02/09/23 08:59 Not Given DAILY ANGELA Past Medical History Medical History Head and neck cancer 2010; treated surgically + radiation History of back injury History of kidney stones History of nephrolithotomy with removal of calculi Hx: UTI (urinary tract infection) Hypothyroidism Osteoarthritis Reducible right inguinal hernia Past Family History Family History Father Brain cancer Brother Cancer Grandfather (Paternal) Cancer Mother Myocardial infarction Other No family history of adverse response to anesthesia No family history of bleeding disorder Past Surgical History Surgical History H/O right inguinal hernia repair (10/21/21) Laparoscopic Right Incarcerated Inguinal Hernia Repair with Mesh(Right) - Salvador Herrera, 10/21/2021 History of cancer surgery head and neck cancer 2010 History of colonoscopy History of cystoscopy with stone extraction History of open reduction and internal fixation (ORIF) procedure Left wrist Social History Smoking Status: Never smoker Do You Dip or Chew Tobacco: No Hx Alcohol Use: No Hx Substance Use: No substance use type: does not use Physical Exam Vital Signs Last Vital Signs Temp 36.6 C 01/17/23 07:13 Pulse 86 01/17/23 07:29 Resp 18 01/17/23 07:13 BP 165/104 H 01/17/23 07:13 Pulse Ox 98 01/17/23 07:13 O2 Del Method Room Air 01/17/23 07:19 O2 Flow Rate 2 01/11/23 10:30 FiO2 21 01/12/23 23:32 Testing Laboratory Results 01/16/23 07:44 01/16/23 07:44 PT 11.8 Seconds (9.0-12.0) 01/09/23 14:55 INR 1.1 (0.9-1.1) 01/09/23 14:55 APTT 26.3 Seconds (21.0-31.0) 01/09/23 14:55 Hemoglobin A1c 5.6 % (4.5-5.6) 01/11/23 07:17 Urine Color Yellow 01/09/23 15:27 Urine Appearance Turbid (Clear) A 01/09/23 15:27 Urine pH 5.0 (4.5-7.5) 01/09/23 15:27 Ur Specific [place] 1.021 (1.000-1.030) 01/09/23 15:27 Urine Protein Trace (Negative) H 01/09/23 15:27 Urine Glucose (UA) Negative (Negative) 01/09/23 15:27 Urine Ketones Negative (Negative) 01/09/23 15:27 Urine Nitrite Positive (Negative) A 01/09/23 15:27 Ur Leukocyte Esterase 3+ (Negative) H 01/09/23 15:27 Urine WBC (Auto) >30 /hpf (0-5) H 01/09/23 15:27 Urine RBC (Auto) 0-4 /hpf (0-4) 01/09/23 15:27 U Hyaline Cast (Auto) 1-5 /lpf (0-5) 01/09/23 15:27 U Epithel Cells (Auto) 10-20 /lpf (0-5) H 01/09/23 15:27 Urine Bacteria (Auto) Negative (Negative) 01/09/23 15:27 Blood Type O Positive 01/10/23 15:29 Antibody Screen NEGATIVE 01/10/23 15:29 01/09/23 15:45 Aerobic Blood Culture - Final Blood No growth in Aerobic bottle after 5 days. Anaerobic Blood Culture - Final No growth in Anaerobic bottle after 5 days. 05/09/23 16:00 Aerobic Blood Culture - Final Blood No growth in Aerobic bottle after 5 days. Anaerobic Blood Culture - Final No growth in Anaerobic bottle after 5 days. 01/09/23 15:27 Urine Culture - Final Urine,Straight Cath Pseudomonas aeruginosa Electrocardiogram Date: 01/11/23 Test Reason : Blood Pressure : / mmHG Vent. Rate : 073 BPM Atrial Rate : 073 BPM P-R Int : 192 ms QRS Dur : 104 ms QT Int : 386 ms P-R-T Axes : 051 -04 002 degrees QTc Int : 425 ms Normal sinus rhythm Inferior infarct , age undetermined Abnormal ECG When compared with ECG of 09-JAN-2023 14:46, No significant change was found Confirmed by Tristin Michael ([id number]) on 01/13/2023 12:23:32 AM Chest X-Ray Date: 01/10/23 XR chest 1V portable HISTORY: 82 years-old Male Desaturation acute hypoxia COMPARISON: Chest radiograph 01/09/2023 TECHNIQUE: AP view of the chest FINDINGS: Cardiac silhouette is enlarged. Atherosclerosis of the aorta. No pneumothorax, pleural effusion, airspace consolidation or pulmonary edema. Chronic right rib fractures. Degenerative changes of the shoulders and spine. IMPRESSION: No acute process. Echocardiogram Date: 01/10/23 EF: 65-70% LV Function: normal RWMA: + none
[2023-01-17] MEDS ORDERED: CLINOLIPID 20% IV FAT EMULSION 250 ML IV SCH (16:00)
[2023-01-17] MEDS ORDERED: PERIPHERAL TPN IV SCH (16:00)
[2023-01-17] MEDS ORDERED: [UNRECOGNIZED DRUG - OTHER] IV SCH (16:00)
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
[2023-01-17] MEDS: TAMSULOSIN HCL 0.4 MG CAP PO SCH (22:05)
[2023-01-17] MEDS: STOP CLINOLIPID SCH (22:06)
[2023-01-18] MEDS: LEVOTHYROXINE SODIUM 100 MCG TABLET PO SCH (05:53)
[2023-01-18 06:40] LABS: Hematocrit (blood only) 34.9 % (42.0-52.0); Hemoglobin 11.8 g/dl (14.0-18.0); Mean Corpuscular Hemoglobin 30.5 pg (25.0-34.0); Mean Corpuscular Hgb Conc 33.8 g/dL (32.0-36.0); Mean Corpuscular Volume 90.2 fL (80.0-100.0); Mean Platelet Volume 10.8 fL (9.4-12.4); Platelet Count 285 K/uL (130-400); RDW Coefficient of Variation 16.2 % (11.5-14.5); RDW Standard Deviation 51.9 fL (36.4-46.3); Red Blood Count 3.87 M/uL (4.70-6.10); White Blood Count 6.81 K/ul (4.8-10.8)
[2023-01-18 07:07] LABS: Basophils # (auto) 0.05 K/uL (0-0.2); Basophils % (auto) 0.7 %; Eosinophils # (auto) 0.19 K/uL (0-0.50); Eosinophils % (auto) 2.8 %; Immature Granulocytes # (auto) 0.03 K/uL (0.01-0.20); Immature Granulocytes % (auto) 0.4 %; Lymphocytes # (auto) 1.48 K/uL (1.2-3.4); Lymphocytes % (auto) 21.7 %; Monocytes # (auto) 0.71 K/uL (0.11-0.59); Monocytes % (auto) 10.4 %; Neutrophils # (auto) 4.35 K/uL (1.40-6.50)
[2023-01-18] MEDS: CHOLECALCIFEROL 5,000 UNITS 125 MCG TAB PO SCH (07:23)
[2023-01-18] MEDS: DOCUSATE SODIUM/SENNA 50/8.6MG TAB PO SCH ×2 (07:24→20:07)
[2023-01-18] MEDS: POLYETHYLENE (MIRALAX) 17 GM PACK PO SCH (07:24)
[2023-01-18] MEDS: FERROUS SULFATE 325 MG TAB PO SCH (07:24)
[2023-01-18] MEDS: CYANOCOBALAMIN (B-12) 500 MCG TABLET PO SCH (07:24)
[2023-01-18] MEDS: PANTOprazole 40 MG in SYRINGE 0 ML IV SCH ×2 (09:12→20:07)
[2023-01-18] MEDS: LIDOCAINE 5% 1 PATCH TD SCH (09:12)
--- NOTE | 2023-01-18 09:44 | Gastroenterology Progress Note ---
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, refused PEG on Sunday who is now requesting PEG placement We are unable to place PEG today We can attempt to place PEG on Sunday Please hold AM heparin Sunday Please hold ASA Sunday Will can tentatively plan for EGD w/ PEG placement on Sunday but again discussed the schedule may not permit this Earlier in admission there was clinical concern for upper GI bleeding, this will be evaluated during EGD w/ PEG placement Continue measure per GI consultation note We appreciate assistance in the management of any serological abnormality and corrections to include: hemoglobin >7, INR <2, platelets >50,000, potassium levels >3.5 but <5.3, and sodium levels within 5 points of the reference range prior to endoscopic evaluation. Admission and Anticipated Discharge Date Admission Date: January 09, 2023 Supervising Physician Co-Signing Physician Notes I personally saw and evaluated the patient on 01/18/2023 with CAROLYNE Manuel and agree with her findings and plan of care. 82 y/o M with PMH of throat cancer s/p radiation, atrial fibrillation, chronic systolic heart failure admitted with acute CVA who has now failed his swallow test. GI consulted for PEG tube placement. At bedside patient is AAOx3, abdomen is soft and non-tender, does have notable sarcopenia. He denies any history of abdominal surgeries and he is currently on BID subq heparin and rectal asa 300 mg daily. Had initially planned for PEG tube on Sunday but when attempting to bring patient down to endoscopy he refused. Patient has now decided that he will like to proceed with PEG tube again after discussing with his significant other. Will attempt PEG tube placement tomorrow pending schedule availability. NPO at midnight. Hold anticoagulation. Tania Leone DO Gastroenterology and Hepatology Subjective GI was asked to re-evaluate. Was scheduled for a PEG tube on SundayJanuary 17. At time transport was to bring him down for procedure, he refused to leave his room and was adamantly refusing PEG placement. I was able to speak to him yesterday with significant other at bedside and he verbalized to me he did not want a PEG tube. However, he has now changed his mind and is now requesting a PEG placement. Review of Systems Review of Systems: All systems reviewed & are unremarkable except as noted in HPI & below Physical Exam Constitutional: WD/WN, vitals as above Gastrointestinal (Abdomen): normal bowel sounds, soft, nontender, no hepatosplenomegaly Skin: no rashes, warm and dry Results & Data Vital Signs (Past 12 Hours) Vital Signs Temp Pulse Pulse Pulse Resp BP Pulse Ox 01/18/23 07:53 83 01/18/23 07:40 36.3 C L 83 18 159/73 H 96 01/18/23 03:00 36.9 C 91 H 17 131/78 93 01/17/23 22:00 81 01/17/23 23:00 36.5 C 85 18 142/68 H 97 O2 Del Method 01/18/23 07:53 01/18/23 07:40 Room Air 01/18/23 03:00 Room Air 01/17/23 22:00 01/17/23 23:00 Room Air Laboratory Results 01/18/23 01/18/23 Range/Units 05:39 05:39 WBC 6.81 (4.8-10.8) K/ul RBC 3.87 L (4.70-6.10) M/uL Hgb 11.8 L (14.0-18.0) g/dl Hct 34.9 L (42.0-52.0) % MCV 90.2 (80.0-100.0) fL MCH 30.5 (25.0-34.0) pg MCHC 33.8 (32.0-36.0) g/dL RDW Std Deviation 51.9 H (36.4-46.3) fL RDW Coeff of Heidi 16.2 H (11.5-14.5) % Plt Count 285 (130-400) K/uL MPV 10.8 (9.4-12.4) fL Immature Gran % (Auto) 0.4 % Neut % (Auto) 64.0 % Lymph % (Auto) 21.7 % [place] % (Auto) 10.4 % Eos % (Auto) 2.8 % Baso % (Auto) 0.7 % Neut # (Auto) 4.35 (1.40-6.50) K/uL Lymph # (Auto) 1.48 (1.2-3.4) K/uL [place] # (Auto) 0.71 H (0.11-0.59) K/uL Eos # (Auto) 0.19 (0-0.50) K/uL Baso # (Auto) 0.05 (0-0.2) K/uL Immature Gran # (Auto) 0.03 (0.01-0.20) K/uL Sodium Pending Potassium Pending Chloride Pending Carbon Dioxide Pending Anion Gap Pending BUN Pending Creatinine Pending Est Cr Clr Drug Dosing Pending Est GFR ( Amer) Pending Est GFR (Non-Af Amer) Pending BUN/Creatinine Ratio Pending Glucose Pending Calcium Pending Phosphorus Pending Magnesium Pending Total Bilirubin Pending AST Pending ALT Pending Alkaline Phosphatase Pending Total Protein Pending Albumin Pending Globulin Pending Albumin/Globulin Ratio Pending
[2023-01-18 11:00] LABS: Albumin Level 3.1 gm/dl (3.4-5.0); Bilirubin,Total 0.9 mg/dl (0.2-1.0); Calcium 8.8 mg/dl (8.6-10.3); Magnesium 1.8 mg/dl (1.7-2.4)
[2023-01-18 11:06] LABS: Albumin Globulin Ratio 1.3 (0.9-2); Creatinine Clr Calc Pharmacy 66.2 ml/min; Est GFR (African American) 96.2 ml/min; Globulin 2.4 gm/dl (2.5-4.0); Phosphorus 2.8 mg/dl (2.5-4.9); Total Protein 5.5 gm/dl (6.0-8.3)
--- NOTE | 2023-01-18 11:49 | Pharmacy Report ---
PHA: Parenteral Nutrition Con - Date of Service January 18, 2023 - Scope Pharmacy was consulted on 01/16 to manage parenteral nutrition orders for this patient. - Subjective The patient is currently on day 3 of peripheral parenteral nutrition for prolonged NPO status. - Objective Height: 5 ft 7 in Weight: 67.7 kg Diet: NPO Intake & Output (24hrs):: Intake & Output 01/16/23 01/17/23 01/18/23 01/19/23 06:59 06:59 06:59 06:59 Intake Total 1600 / 1600 1211.334 / 9476.230 4937.900 / 1958.900 0 / 0 Output Total 2725 / 2725 1550 / 1550 1825 / 1825 Balance -1125 / -1125 -338.666 / -338.666 133.900 / 133.900 0 / 0 Weight 65.7 kg 63.8 kg 67.7 kg Laboratory Data (Last 24 Hr):: 01/18/23 05:39 Sodium 138 Potassium 4.0 Chloride 106 Carbon Dioxide 22 BUN 15 Creatinine 0.79 Glucose 69 L Calcium 8.8 Phosphorus 2.8 Magnesium 1.8 Total Bilirubin 0.9 AST 19 ALT 7 Alkaline Phosphatase 121 H Albumin 3.1 L Nutrition Assessment:: Please refer to the Notes section of the EMR for the most recent cutting inspector note. - Assessment 01/18: * Refused PEG placement yesterday. Plan for PEG again Sun, 01/18. * Will increase PPN macronutrients to goal today. * Electrolytes WNL. K and Phos trending up. Plan to decrease K and Phos and increase Mg and Na (~ 1/2NS) in next PPN bag. - Plan For day #3 of PN administration, the following will be ordered: Macronutrients Amino acids 77 grams/day Dextrose 90 grams/day Lipids 50 grams/day Micronutrients Sodium phosphate 20 MMol Sodium chloride 40 mEq Sodium acetate 60 mEq Potassium acetate 40 mEq Magnesium sulfate 8.12 mEq Calcium gluconate 4.65 mEq Multivitamins 10 mL Trace Elements 1 mL Additional additives: thiamine 100mg Total volume 1897 mL to be infused over 24 hrs will provide 1112 kcal/day Final osmolarity 821 mOsm/L (maximum for PPN is 900 mOsm/L) Labs, as indicated, will be ordered per protocol Pharmacy will continue to follow and adjust parenteral nutrition orders on a daily basis. Thank you for allowing us to participate in the care of this patient.
[2023-01-18] MEDS: droNABinol 2.5 MG CAP PO SCH ×2 (11:52→16:22)
[2023-01-18] MEDS ORDERED: ACETAMINOPHEN 1,000 MG/100 ML VIAL IV PRN (15:05)
[2023-01-18] MEDS ORDERED: CLINOLIPID 20% IV FAT EMULSION 250 ML IV SCH (16:00)
[2023-01-18] MEDS ORDERED: [UNRECOGNIZED DRUG - OTHER] IV SCH (16:00)
[2023-01-18] MEDS ORDERED: PERIPHERAL TPN IV SCH (16:00)
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
[2023-01-18] MEDS: TAMSULOSIN HCL 0.4 MG CAP PO SCH (20:08)
[2023-01-18] MEDS: STOP CLINOLIPID SCH (22:45)
[2023-01-19] MEDS: LEVOTHYROXINE SODIUM 100 MCG TABLET PO SCH (06:10)
[2023-01-19] MEDS: CYANOCOBALAMIN (B-12) 500 MCG TABLET PO SCH (08:06)
[2023-01-19] MEDS: CHOLECALCIFEROL 5,000 UNITS 125 MCG TAB PO SCH (08:06)
[2023-01-19] MEDS: DOCUSATE SODIUM/SENNA 50/8.6MG TAB PO SCH ×2 (08:06→20:41)
[2023-01-19] MEDS: FERROUS SULFATE 325 MG TAB PO SCH (08:07)
[2023-01-19] MEDS: LIDOCAINE 5% 1 PATCH TD SCH (08:07)
[2023-01-19] MEDS: POLYETHYLENE (MIRALAX) 17 GM PACK PO SCH (08:09)
[2023-01-19] MEDS: PANTOprazole 40 MG in SYRINGE 0 ML IV SCH ×2 (08:09→20:40)
--- NOTE | 2023-01-19 08:36 | Communication Note ---
Date of Service: January 19, 2023 Pt remains NPO with anticoagulation on hold. Tentative plan for EGD w/ PEG tube attempt today pending procedure room availability. Please refer to prior notes of additional recommendations and plans. We appreciate assistance in the management of any serological abnormality and corrections to include: hemoglobin >7, INR <2, platelets >50,000, potassium levels >3.5 but <5.3, and sodium levels within 5 points of the reference range prior to endoscopic evaluation. Thank you for allowing us to participate in the care of this patient. Please call with any acute changes, questions or concerns. Please see addendum below with additional recommendation from my supervising physician. We were going to attempt to do his feeding tube this afternoon, unfortunately time did not permit that the exam would be done today. As noted before the patient had been brought for his procedure several days ago but at that time refused to have the exam done. We will make arrangements at the next available which will hopefully be Sunday or perhaps Sunday of next week. Dr. Antoni Hull
[2023-01-19 09:00] LABS: BUN Creatinine Ratio 25.3 (10-20); Calcium 9.3 mg/dl (8.6-10.3); Est GFR (African American) 94.3 ml/min; Est GFR (Non-African American) 81.4 ml/min; Phosphorus 3.4 mg/dl (2.5-4.9); Potassium 4.3 mmol/L (3.5-5.1)
[2023-01-19] MEDS: droNABinol 2.5 MG CAP PO SCH ×2 (11:46→17:11)
[2023-01-19] MEDS ORDERED: CLINOLIPID 20% IV FAT EMULSION 250 ML IV SCH (16:00)
[2023-01-19] MEDS ORDERED: [UNRECOGNIZED DRUG - OTHER] IV SCH (16:00)
[2023-01-19] MEDS ORDERED: PERIPHERAL TPN IV SCH (16:00)
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
[2023-01-19] MEDS: TAMSULOSIN HCL 0.4 MG CAP PO SCH (20:41)
[2023-01-19] MEDS: STOP CLINOLIPID SCH (23:51)
[2023-01-20] MEDS: LEVOTHYROXINE SODIUM 100 MCG TABLET PO SCH (05:45)
[2023-01-20] MEDS: CHOLECALCIFEROL 5,000 UNITS 125 MCG TAB PO SCH (08:07)
[2023-01-20] MEDS: DOCUSATE SODIUM/SENNA 50/8.6MG TAB PO SCH ×2 (08:07→19:55)
[2023-01-20] MEDS: CYANOCOBALAMIN (B-12) 500 MCG TABLET PO SCH (08:07)
[2023-01-20] MEDS: FERROUS SULFATE 325 MG TAB PO SCH (08:07)
[2023-01-20] MEDS: POLYETHYLENE (MIRALAX) 17 GM PACK PO SCH (08:08)
[2023-01-20] MEDS: PANTOprazole 40 MG in SYRINGE 0 ML IV SCH ×2 (08:08→19:42)
[2023-01-20] MEDS: LIDOCAINE 5% 1 PATCH TD SCH (08:08)
[2023-01-20 10:53] LABS: Basophils # (auto) 0.06 K/uL (0-0.2); Basophils % (auto) 0.9 %; Eosinophils # (auto) 0.15 K/uL (0-0.50); Eosinophils % (auto) 2.2 %; Hematocrit (blood only) 36.1 % (42.0-52.0); Immature Granulocytes # (auto) 0.02 K/uL (0.01-0.20); Immature Granulocytes % (auto) 0.3 %; Lymphocytes # (auto) 1.43 K/uL (1.2-3.4); Lymphocytes % (auto) 20.9 %; Mean Corpuscular Hemoglobin 30.6 pg (25.0-34.0); Mean Corpuscular Hgb Conc 33.2 g/dL (32.0-36.0); Mean Corpuscular Volume 92.1 fL (80.0-100.0); Mean Platelet Volume 10.2 fL (9.4-12.4); Monocytes # (auto) 0.53 K/uL (0.11-0.59); Monocytes % (auto) 7.7 %; Neutrophils # (auto) 4.65 K/uL (1.40-6.50); Platelet Count 316 K/uL (130-400); RDW Coefficient of Variation 16.1 % (11.5-14.5); RDW Standard Deviation 52.8 fL (36.4-46.3); Red Blood Count 3.92 M/uL (4.70-6.10); White Blood Count 6.84 K/ul (4.8-10.8)
[2023-01-20] MEDS: droNABinol 2.5 MG CAP PO SCH ×2 (11:07→17:02)
[2023-01-20 11:11] LABS: Calcium 9.2 mg/dl (8.6-10.3); Creatinine Clr Calc Pharmacy 72.5 ml/min; Est GFR (African American) 100.6 ml/min; Est GFR (Non-African American) 86.8 ml/min; Phosphorus 3.2 mg/dl (2.5-4.9); Potassium 4.1 mmol/L (3.5-5.1)
[2023-01-20] MEDS ORDERED: CLINOLIPID 20% IV FAT EMULSION 250 ML IV SCH (16:00)
[2023-01-20] MEDS ORDERED: PERIPHERAL TPN IV SCH (16:00)
[2023-01-20] MEDS ORDERED: [UNRECOGNIZED DRUG - OTHER] IV SCH (16:00)
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
[2023-01-20] MEDS: TAMSULOSIN HCL 0.4 MG CAP PO SCH (20:00)
[2023-01-20] MEDS: STOP CLINOLIPID SCH (22:00)
[2023-01-21] MEDS: CYANOCOBALAMIN (B-12) 500 MCG TABLET PO SCH (07:47)
[2023-01-21] MEDS: FERROUS SULFATE 325 MG TAB PO SCH (07:47)
[2023-01-21] MEDS: DOCUSATE SODIUM/SENNA 50/8.6MG TAB PO SCH ×2 (07:47→20:14)
[2023-01-21] MEDS: CHOLECALCIFEROL 5,000 UNITS 125 MCG TAB PO SCH (07:47)
[2023-01-21] MEDS: droNABinol 2.5 MG CAP PO SCH ×2 (07:48→15:50)
[2023-01-21] MEDS: POLYETHYLENE (MIRALAX) 17 GM PACK PO SCH (07:48)
[2023-01-21] MEDS ORDERED: LEVOTHYROXINE SODIUM 25 MCG in SYRINGE 0 ML IV SCH (09:00)
[2023-01-21] MEDS: PANTOprazole 40 MG in SYRINGE 0 ML IV SCH ×2 (09:45→20:14)
[2023-01-21] MEDS: LIDOCAINE 5% 1 PATCH TD SCH (09:45)
[2023-01-21 11:35] LABS: BUN Creatinine Ratio 29.7 (10-20); Calcium 9.1 mg/dl (8.6-10.3); Creatinine Clr Calc Pharmacy 70.3 ml/min; Est GFR (African American) 98.9 ml/min; Est GFR (Non-African American) 85.3 ml/min; Phosphorus 3.2 mg/dl (2.5-4.9); Potassium 4.2 mmol/L (3.5-5.1)
[2023-01-21] MEDS ORDERED: [UNRECOGNIZED DRUG - OTHER] IV SCH (16:00)
[2023-01-21] MEDS ORDERED: CLINOLIPID 20% IV FAT EMULSION 250 ML IV SCH (16:00)
[2023-01-21] MEDS ORDERED: PERIPHERAL TPN IV SCH (16:00)
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
[2023-01-21] MEDS: TAMSULOSIN HCL 0.4 MG CAP PO SCH (20:14)
[2023-01-21] MEDS: STOP CLINOLIPID SCH (22:02)
[2023-01-22] MEDS ORDERED: CLINDAMYCIN/D5W 900 MG/50 ML BAG IV SCH (06:00)
[2023-01-22] MEDS: LIDOCAINE 5% 1 PATCH TD SCH (08:08)
[2023-01-22] MEDS: CYANOCOBALAMIN (B-12) 500 MCG TABLET PO SCH (08:08)
[2023-01-22] MEDS: CHOLECALCIFEROL 5,000 UNITS 125 MCG TAB PO SCH (08:08)
[2023-01-22] MEDS: FERROUS SULFATE 325 MG TAB PO SCH (08:08)
[2023-01-22] MEDS: DOCUSATE SODIUM/SENNA 50/8.6MG TAB PO SCH ×2 (08:08→19:43)
[2023-01-22] MEDS: PANTOprazole 40 MG in SYRINGE 0 ML IV SCH ×2 (08:09→19:44)
[2023-01-22] MEDS: POLYETHYLENE (MIRALAX) 17 GM PACK PO SCH (08:09)
--- NOTE | 2023-01-22 08:28 | History & Physical Bridge Note ---
Date of Service January 22, 2023 History & Physical Bridge Note I have examined the patient, reviewed the History & Physical and in the interval since the performance of the History & Physical I have noted the following changes of clinical significance: no changes noted SPoke to patient who is alert and oriented and spoke to Rudy his POA and obtained consent. Patient was explained in detail regarding risks, benefits, limitations and alternatives of the above endoscopic procedure. Risks of intravenous sedation us ed for procedure were also explained. Risks include, but not limited to perforation, bleeding, infection, respiratory distress, cardiac arrest and . Patient is also aware about the possibility of missed lesion. Patient's questions were answered. The patient verbalized understanding the information and agreed to undergo the procedure.
[2023-01-22] MEDS ORDERED: KETAMINE 50 MG/5 ML SYRINGE ONE (08:49)
--- NOTE | 2023-01-22 09:15 | GI REPORT ---
Patient Name: Arnulfo Modi Procedure Date: 01/22/2023 8:21 AM Date of : 1940 Admit Type: Inpatient Age: 82 Gender: Male Attending MD: Nika Owen MD, Procedure: Upper GI endoscopy Providers: Nika Owen MD Referring MD: Long Nails Indications: Place PEG due to neurological disorder causing impaired swallowing Medicines: Propofol per Anesthesia, Cleocin 900 mg IV Complications: No immediate complications. Estimated Blood Loss: Estimated blood loss: none. Procedure: Pre-Anesthesia Assessment: - Prior to the procedure, a History and Physical was performed, and patient medications, allergies and sensitivities were reviewed. The patient's tolerance of previous anesthesia was reviewed. - The risks and benefits of the procedure and the sedation options and risks were discussed with the patient. All questions were answered and informed consent was obtained. - Patient identification and proposed procedure were verified prior to the procedure by the physician and the nurse. The procedure was verified in the procedure room. - Pre-procedure physical examination revealed no contraindications to sedation. After obtaining informed consent, the endoscope was passed under direct vision. Throughout the procedure, the patient's blood pressure, pulse, and oxygen saturations were monitored continuously. The Endoscope was introduced through the mouth, and advanced to the second part of duodenum. The upper GI endoscopy was accomplished without difficulty. The patient tolerated the procedure well. Findings: The examined esophagus was normal. The entire examined stomach was normal. The patient was placed in the supine position for PEG placement. The stomach was insufflated to appose gastric and abdominal hinson. A site was located in the body of the stomach with excellent transillumination and manual external pressure for placement. The abdominal wall was marked and prepped in a sterile manner. The area was anesthetized with 2 mL of 1% lidocaine. The trocar needle was introduced through the abdominal wall and into the stomach under direct endoscopic view. A snare was introduced through the endoscope and opened in the gastric lumen. The guide wire was passed through the trocar and into the open snare. The snare was closed around the guide wire. The endoscope and snare were removed, pulling the wire out through the mouth. A skin incision was made at the site of needle insertion. The externally removable 20 Fr Herberth-Cook gastrostomy tube was lubricated. The G-tube was tied to the guide wire and pulled through the mouth and into the stomach. The trocar needle was removed, and the gastrostomy tube was pulled out from the stomach through the skin. The external bumper was attached to the gastrostomy tube, and the tube was cut to remove the guide wire. The final position of the gastrostomy tube was confirmed by relook endoscopy, and skin marking noted to be 2 cm at the external bumper. The final tension and compression of the abdominal wall by the PEG tube and external bumper were checked and revealed that the bumper was moderately tight and mildly deforming the skin. The feeding tube was capped, and the tube site cleaned and dressed. The duodenal bulb and second portion of the duodenum were normal. Impression: - Normal esophagus. - Normal stomach. - Normal duodenal bulb and second portion of the duodenum. - An externally removable PEG placement was successfully completed. Recommendation: - Return patient to [facility] for [facility] care. - Please follow the post-PEG recommendations including: Nutrition consult for formula and volume, dry dressing only and may use PEG tomorrow for feedings. Nika Owen MD 01/22/2023 9:15:05 AM This report has been signed electronically. Note Initiated On: 01/22/2023 8:21 AM Number of Addenda: 0 I attest to the content of the Intraoperative Record and orders documented therein, exceptions below {[id number]}
[2023-01-22] MEDS ORDERED: PHENYLEPHRINE 100MCG/ML 5ML SYR ONE (09:58)
[2023-01-22] MEDS ORDERED: LIDOCAINE 2% 2 ML VIAL/AMP(20MG/ML) INFIL ONE (09:58)
[2023-01-22] MEDS ORDERED: PROPOFOL IV EMULSION 10 MG/ML 20 ML VIAL IV ONE (09:58)
[2023-01-22] MEDS: droNABinol 2.5 MG CAP PO SCH ×2 (10:32→16:18)
--- NOTE | 2023-01-22 13:18 | Anesthesiology Progress Note ---
Date of Service January 22, 2023 Anesthesia Post Procedure Vital Signs Vital Signs: Temp Pulse Pulse Pulse Resp BP BP 01/22/23 12:35 65 22 173/75 H 01/22/23 12:30 66 24 184/78 H 01/22/23 12:00 66 164/69 H 01/22/23 11:30 63 14 144/66 H 01/22/23 11:00 62 16 149/68 H 01/22/23 10:30 60 14 155/69 H 01/22/23 11:42 36.3 C L 01/22/23 08:00 90 01/22/23 08:00 01/22/23 10:25 36.3 C L 60 14 155/69 H 01/22/23 10:04 64 16 124/70 01/22/23 09:48 62 15 137/66 01/22/23 09:33 64 15 84/51 L 01/22/23 09:18 63 15 100/55 L 01/22/23 08:15 36.6 C 88 16 137/74 01/22/23 07:18 36.8 C 86 16 114/65 01/22/23 03:12 36.6 C 87 20 128/68 01/21/23 22:46 36.6 C 81 18 148/73 H 01/21/23 20:19 36.5 C 69 11 L 158/66 H 01/21/23 16:18 36.5 C 71 20 137/67 Pulse Ox O2 Del Method 01/22/23 12:35 93 Room Air 01/22/23 12:30 95 Room Air 01/22/23 12:00 97 Room Air 01/22/23 11:30 01/22/23 11:00 01/22/23 10:30 01/22/23 11:42 01/22/23 08:00 01/22/23 08:00 Room Air 01/22/23 10:25 98 Room Air 01/22/23 10:04 100 Room Air 01/22/23 09:48 100 Room Air 01/22/23 09:33 100 Room Air 01/22/23 09:18 100 Room Air 01/22/23 08:15 99 Room Air 01/22/23 07:18 96 Room Air 01/22/23 03:12 99 Room Air 01/21/23 22:46 95 Room Air 01/21/23 20:19 93 Room Air 01/21/23 16:18 98 Room Air Pain Intensity Back: Pain Intensity: 0 Transfer of Care Handoff Completed per policy Notes Mental Status: alert / awake / arousable and participated in evaluation Patient Amnestic to Procedure: Yes Nausea / Vomiting: adequately controlled Pain: adequately controlled Airway Patency, RR, SpO2: stable & adequate BP & HR: stable & adequate Hydration State: stable & adequate Anesthetic Complications: no major complications apparent
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
--- NOTE | 2023-01-22 14:02 | Pharmacy Report ---
PHA: Parenteral Nutrition Con - Date of Service January 22, 2023 - Scope Pharmacy was consulted on 01/16/23 to manage parenteral nutrition orders for this patient. - Subjective The patient is currently on day #7 of peripheral parenteral nutrition for prolonged NPO status. - Objective Height: 5 ft 7 in Weight: 67.9 kg Diet: NPO Intake & Output (24hrs):: Intake & Output 01/20/23 01/21/23 01/22/23 01/23/23 06:59 06:59 06:59 06:59 Intake Total 2779 / 2779 2783 / 2783 2100.465 / 2100.465 Output Total 2049 1950 / 1950 550 / 550 Balance 729 / 729 733 / 733 150.465 / 150.465 -550 / -550 Weight 65 kg 65.7 kg 67.9 kg 67.9 kg Nutrition Assessment:: Please refer to the Notes section of the EMR for the most recent filing writer note. - Assessment 01/22: * Patient refused labs again today. Did have PEG placed this AM. * Will reorder same bag as yesterday. Confirmed today is the last day of PPN with the provider. Will start PEG feeds tomorrow. - Plan For day #7 of PN administration, the following will be ordered: Macronutrients Amino acids 77 grams/day Dextrose 90 grams/day Lipids 50 grams/day Micronutrients Combined electrolytes mL - contains 35 mEq Na, 20 meq K, 4.5 mEq Ca, 5 mEq Mg, 35 mEq Cl, 29.5 mEq acetate per 20 mL Sodium phosphate 15 MMol Sodium chloride 80 mEq Sodium acetate 50 mEq Potassium phosphate mMol Potassium chloride mEq Potassium acetate 30 mEq Magnesium sulfate 8.12 mEq Calcium gluconate 4.65 mEq Multivitamins 10 mL Trace Elements 1 mL Thiamine 100 mg Total volume 1901 mL to be infused over 24 hrs will provide 1112 kcal/day Final osmolarity 834 mOsm/L (maximum for PPN is 900 mOsm/L) Labs, as indicated, will be ordered per protocol Pharmacy will continue to follow and adjust parenteral nutrition orders on a daily basis. Thank you for allowing us to participate in the care of this patient.
[2023-01-22] MEDS: ACETAMINOPHEN 1,000 MG/100 ML VIAL IV SCH ×2 (14:35→21:11)
[2023-01-22] MEDS ORDERED: CLINOLIPID 20% IV FAT EMULSION 250 ML IV SCH (16:00)
[2023-01-22] MEDS ORDERED: [UNRECOGNIZED DRUG - OTHER] IV SCH (16:00)
[2023-01-22] MEDS ORDERED: PERIPHERAL TPN IV SCH (16:00)
[2023-01-22] MEDS: TAMSULOSIN HCL 0.4 MG CAP PO SCH (19:43)
[2023-01-22] MEDS: STOP CLINOLIPID SCH (22:09)
[2023-01-23] MEDS: ACETAMINOPHEN 1,000 MG/100 ML VIAL IV SCH ×2 (05:23→13:30)
[2023-01-23] MEDS: DOCUSATE SODIUM/SENNA 50/8.6MG TAB PO SCH ×2 (08:03→21:45)
[2023-01-23] MEDS: CYANOCOBALAMIN (B-12) 500 MCG TABLET PO SCH (08:03)
[2023-01-23] MEDS: PANTOprazole 40 MG in SYRINGE 0 ML IV SCH ×2 (08:03→21:46)
[2023-01-23] MEDS: CHOLECALCIFEROL 5,000 UNITS 125 MCG TAB PO SCH (08:03)
[2023-01-23] MEDS: FERROUS SULFATE 325 MG TAB PO SCH (08:04)
[2023-01-23] MEDS: POLYETHYLENE (MIRALAX) 17 GM PACK PO SCH (08:04)
[2023-01-23] MEDS: LIDOCAINE 5% 1 PATCH TD SCH (08:04)
--- NOTE | 2023-01-23 09:26 | Gastroenterology Progress Note ---
Date of Service January 23, 2023 Assessment & Plan (1) Dysphagia due to recent cerebral infarction: Plan 1. May use the PEG tube for feedings, meds, water. 2. Clean the site w soap/water daily, rinse well and apply a new dressing over the PEG tube as well as a binder to keep the pt from dislodging the tube. 3. GI will sign off. Please notify us if new GI issues or questions. Admission and Anticipated Discharge Date Admission Date: January 09, 2023 Supervising Physician Co-Signing Physician Notes I performed a history and physical examination of the patient today, including specifically on physical exam - soft abdomen. I have discussed the patient's management with the advanced practitioner. Please refer to the nurse practition er's note for the documented findings and plan of care. PEG intact and functioning and can be used today. Recall GI if needed. Subjective 82 yr old male, underwent PEG tube insertion yesterday for post CVA dysphagia. Today awake, not oriented (dementia), does not seem to be uncomfortable. PEG tube site evaluated. Sits at 3, Able to be turned freely and move slightly. No bleeding or edema around the site. Review of Systems Review of Systems: Not able to obtain ROS from the pt. Physical Exam Constitutional: frail appearing, awake, hemodynamically stable. Eyes: PERRL, conjunctivae normal, anicteric sclerae ENMT: external ear and nose normal, oropharynx normal Neck: trachea midline, no thyromegaly Respiratory: normal respiratory effort, lungs clear to auscultation (sat at 94% on room air) Cardiovascular: RRR, no murmur, no edema Gastrointestinal (Abdomen): PEG tube in place in the epigastric area, no edema or bleeding. Abd soft, non tender. Skin: no rashes, warm and dry Neurologic: moves all extremities, awake and + confused Lymphatic: no cervical or axillary lymphadenopathy Results & Data Vital Signs (Past 12 Hours) Vital Signs Temp Pulse Pulse Pulse Resp BP Pulse Ox 01/23/23 08:14 36 C L 71 17 94 01/23/23 03:38 36.6 C 75 20 177/78 H 94 01/22/23 23:28 83 01/22/23 23:11 36.5 C 82 14 139/66 96 O2 Del Method 01/23/23 08:14 Room Air 01/23/23 03:38 Room Air 01/22/23 23:28 01/22/23 23:11 Room Air Laboratory Results glucose 101 Most recent CBC 2 days ago and CMP yesterday w mild anemia, otherwise normal. Diagnostic Findings Aspiration on video swallow on 01/15/23. MRI 01/09/23 w RIGHT parieto-occipital lobe, consistent with recent infarct.
[2023-01-23] MEDS ORDERED: FIBERSOURCE HN 1.2 CAL 1000 ML BAG GT SCH (10:15)
[2023-01-23] MEDS: droNABinol 2.5 MG CAP PO SCH (11:10)
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
[2023-01-23] MEDS: ASPIRIN 81 MG CHEW PEG SCH (17:37)
[2023-01-23] MEDS: TUBE FEEDING WATER FLUSH PEG SCH ×2 (18:33→21:47)
[2023-01-23] MEDS: HEPARIN SOD 5,000 UNIT/0.5 ML VIAL SQ SCH (21:44)
[2023-01-23] MEDS: METOPROLOL TARTRATE 25 MG TAB PEG SCH (21:45)
[2023-01-23] MEDS: ACETAMINOPHEN 500 MG TAB PO SCH (21:46)
[2023-01-24] MEDS: TUBE FEEDING WATER FLUSH PEG SCH ×6 (02:00→22:00)
[2023-01-24] MEDS: LEVOTHYROXINE SODIUM 100 MCG TABLET GT SCH (05:53)
[2023-01-24] MEDS: ACETAMINOPHEN 500 MG TAB PO SCH ×3 (05:57→19:41)
[2023-01-24] MEDS: FERROUS SULFATE 325 MG TAB PO SCH (08:21)
[2023-01-24] MEDS: CHOLECALCIFEROL 5,000 UNITS 125 MCG TAB PO SCH (08:21)
[2023-01-24] MEDS: CYANOCOBALAMIN (B-12) 500 MCG TABLET PEG SCH (08:21)
[2023-01-24] MEDS: DOCUSATE SODIUM/SENNA 50/8.6MG TAB PO SCH ×2 (08:22→19:40)
[2023-01-24] MEDS: PANTOprazole 40 MG in SYRINGE 0 ML IV SCH ×2 (08:23→19:40)
[2023-01-24] MEDS: METOPROLOL TARTRATE 25 MG TAB PEG SCH ×2 (08:23→19:40)
[2023-01-24] MEDS: LIDOCAINE 5% 1 PATCH TD SCH (08:25)
[2023-01-24] MEDS: POLYETHYLENE (MIRALAX) 17 GM PACK PEG SCH (08:25)
[2023-01-24] MEDS: HEPARIN SOD 5,000 UNIT/0.5 ML VIAL SQ SCH ×2 (08:25→19:40)
[2023-01-24] MEDS: ASPIRIN 81 MG CHEW PEG SCH (08:26)
[2023-01-24 11:11] LABS: Calcium 9.1 mg/dl (8.6-10.3); Potassium 4.6 mmol/L (3.5-5.1)
[2023-01-24 11:17] LABS: BUN Creatinine Ratio 25.5 (10-20); Creatinine Clr Calc Pharmacy 50.6 ml/min; Est GFR (African American) 78.4 ml/min; Est GFR (Non-African American) 67.7 ml/min
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
[2023-01-24] MEDS: ATORVASTATIN 20 MG TAB PEG SCH (15:15)
[2023-01-25] MEDS: TUBE FEEDING WATER FLUSH PEG SCH ×6 (02:27→22:04)
[2023-01-25] MEDS: ACETAMINOPHEN 500 MG TAB PO SCH ×3 (05:48→22:04)
[2023-01-25] MEDS: LEVOTHYROXINE SODIUM 100 MCG TABLET GT SCH (05:48)
[2023-01-25 06:52] LABS: Hematocrit (blood only) 35.5 % (42.0-52.0); Hemoglobin 11.6 g/dl (14.0-18.0); Mean Corpuscular Hemoglobin 30.6 pg (25.0-34.0); Mean Corpuscular Hgb Conc 32.7 g/dL (32.0-36.0); Mean Corpuscular Volume 93.7 fL (80.0-100.0); Platelet Count 298 K/uL (130-400); RDW Coefficient of Variation 16.2 % (11.5-14.5); RDW Standard Deviation 54.8 fL (36.4-46.3); Red Blood Count 3.79 M/uL (4.70-6.10); White Blood Count 6.09 K/ul (4.8-10.8)
[2023-01-25 07:09] LABS: BUN Creatinine Ratio 24.5 (10-20); Calcium 9.3 mg/dl (8.6-10.3); Creatinine Clr Calc Pharmacy 52.9 ml/min; Est GFR (African American) 82.3 ml/min; Magnesium 1.9 mg/dl (1.7-2.4); Phosphorus 3.7 mg/dl (2.5-4.9); Potassium 4.2 mmol/L (3.5-5.1)
[2023-01-25] MEDS: CHOLECALCIFEROL 5,000 UNITS 125 MCG TAB PO SCH (08:44)
[2023-01-25] MEDS: CYANOCOBALAMIN (B-12) 500 MCG TABLET PEG SCH (08:44)
[2023-01-25] MEDS: FERROUS SULFATE 325 MG TAB PO SCH (08:44)
[2023-01-25] MEDS: ASPIRIN 81 MG CHEW PEG SCH (08:44)
[2023-01-25] MEDS: METOPROLOL TARTRATE 25 MG TAB PEG SCH ×2 (08:45→19:50)
[2023-01-25] MEDS: POLYETHYLENE (MIRALAX) 17 GM PACK PEG SCH (08:46)
[2023-01-25] MEDS: HEPARIN SOD 5,000 UNIT/0.5 ML VIAL SQ SCH ×2 (08:46→19:59)
[2023-01-25] MEDS: PANTOprazole 40 MG in SYRINGE 0 ML IV SCH ×2 (08:46→19:55)
[2023-01-25] MEDS: LIDOCAINE 5% 1 PATCH TD SCH (08:46)
[2023-01-25] MEDS: DOCUSATE SODIUM/SENNA 50/8.6MG TAB PO SCH ×2 (08:47→19:51)
[2023-01-25] MEDS: ATORVASTATIN 20 MG TAB PEG SCH (08:47)
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
[2023-01-26] MEDS: TUBE FEEDING WATER FLUSH PEG SCH ×4 (02:00→14:34)
[2023-01-26] MEDS: ACETAMINOPHEN 500 MG TAB PO SCH ×2 (05:55→14:34)
[2023-01-26] MEDS: LEVOTHYROXINE SODIUM 100 MCG TABLET GT SCH (05:55)
[2023-01-26] MEDS: CYANOCOBALAMIN (B-12) 500 MCG TABLET PEG SCH (08:11)
[2023-01-26] MEDS: CHOLECALCIFEROL 5,000 UNITS 125 MCG TAB PO SCH (08:11)
[2023-01-26] MEDS: ASPIRIN 81 MG CHEW PEG SCH (08:11)
[2023-01-26] MEDS: DOCUSATE SODIUM/SENNA 50/8.6MG TAB PO SCH (08:11)
[2023-01-26] MEDS: PANTOprazole 40 MG in SYRINGE 0 ML IV SCH (08:12)
[2023-01-26] MEDS: FERROUS SULFATE 325 MG TAB PO SCH (08:12)
[2023-01-26] MEDS: ATORVASTATIN 20 MG TAB PEG SCH (08:12)
[2023-01-26] MEDS: LIDOCAINE 5% 1 PATCH TD SCH (08:12)
[2023-01-26] MEDS: METOPROLOL TARTRATE 25 MG TAB PEG SCH (08:12)
[2023-01-26] MEDS: HEPARIN SOD 5,000 UNIT/0.5 ML VIAL SQ SCH (08:12)
[2023-01-26] MEDS: POLYETHYLENE (MIRALAX) 17 GM PACK PEG SCH (08:15)
--- NOTE | 2023-01-26 13:56 | CT Scan Report ---
LUMBAR SPINE CT WITHOUT CONTRAST CLINICAL HISTORY: Assess fracture. COMPARISON STUDY: Lumbar spine MRI December 25, 2022. CT of the abdomen and pelvis January 09, 2023. TECHNIQUE: Axial images of the lumbar spine were obtained without IV contrast. Sagittal and coronal r econstructions were viewed. Automated exposure control was utilized for the study. A dose lowering t echnique was utilized adhering to the principles of ALARA. FINDINGS: For purposes of numbering on this exam, the L5-S1 disc space is assigned to axial image 288 of 347. Reversal of the cervical lordosis is noted. There is mild anterolisthesis of L5 on S1 due to facet arthrosis. This is unchanged since MRI of December 25, 2022. There is severe multilevel facet art hrosis. There is also moderate to severe multilevel degenerative disc disease with multilevel disc sp ye narrowing and osteophytosis. Central canal and neural foramen are suboptimally assessed given CT technique. Note is made of a subacute horizontal fracture which extends through the L1 vertebral body . Mild loss of vertebral body height is noted. The fracture extends through the right pedicle and parekh pennie of L1 as well. In addition, there is a subacute fracture through anterior osteophytes along the i nferior endplate of L1 and superior endplate of L2. There is an additional subacute fracture along th e superior endplate of L2. No extension into the posterior elements at the L2 level is noted. Subacut e fractures of the right L1 and L2 transverse processes. These fractures are similar in appearance to CT of January 09, 2023. Slight widening of the L1-L2 disc space has slightly increased. No additional lum bar spine fractures are present. A left renal cyst is partially imaged. Right-sided nephrolithiasis i s noted. A 5 mm proximal right ureteral calculus is unchanged. There is no associated hydronephrosis. IMPRESSION: 1. Redemonstration of a subacute three column L1 vertebral fracture, similar in appearance to CT of 2022. This fracture may be unstable. 2. Subacute fracture along anterior osteophytes involving the inferior endplate of L1 and superior en dplate of L2 as well as a nondisplaced subacute L2 vertebral body fracture. No extension into the pos terior elements at the L2 level. 3. Subacute right L1 and L2 transverse process fractures. 4. Moderate to severe multilevel degenerative disc disease and facet arthrosis within lumbar spine. 5. Right-sided nephrolithiasis. No change in a nonobstructing 5 mm proximal right ureteral calculus s celia CT of January 09, 2023. ACT 112: Negative or not required by law. Electronically signed by: Marshall Crow M.D. 01/26/2023 1:55 PM
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
== END 2023-01-26 18:00 | DRG 64 ==
LOC: ED 14:39 → 2W 18:13 → SUATTDRO 18:13 → 2W 19:24 → 2E 01-10 19:54
DX: N40.0 Benign prostatic hyperplasia without lower urinary tract symptoms; V48.0XXD Car driver injured in noncollision transport accident in nontraffic accident, subsequent encounter; F03.90 Unspecified dementia, unspecified severity, without behavioral disturbance, psychotic disturbance, mood disturbance, and anxiety; R33.9 Retention of urine, unspecified; I63.9 Cerebral infarction, unspecified; G83.24 Monoplegia of upper limb affecting left nondominant side; S32.020A Wedge compression fracture of second lumbar vertebra, initial encounter for closed fracture; N13.30 Unspecified hydronephrosis; I65.23 Occlusion and stenosis of bilateral carotid arteries; I11.0 Hypertensive heart disease with heart failure; K59.00 Constipation, unspecified; B96.5 Pseudomonas (aeruginosa) (mallei) (pseudomallei) as the cause of diseases classified elsewhere; I47.1 Supraventricular tachycardia; E43 Unspecified severe protein-calorie malnutrition; Z92.3 Personal history of irradiation; K92.2 Gastrointestinal hemorrhage, unspecified; I50.22 Chronic systolic (congestive) heart failure; D62 Acute posthemorrhagic anemia; Z22.39 Carrier of other specified bacterial diseases; Z88.0 Allergy status to penicillin; R47.01 Aphasia; N39.0 Urinary tract infection, site not specified; E86.0 Dehydration; E03.9 Hypothyroidism, unspecified; R47.1 Dysarthria and anarthria; C76.0 Malignant neoplasm of head, face and neck; R13.10 Dysphagia, unspecified; Q25.46 Tortuous aortic arch; Y92.89 Other specified places as the place of occurrence of the external cause; S32.010A Wedge compression fracture of first lumbar vertebra, initial encounter for closed fracture; G93.49 Other encephalopathy

== ENCOUNTER 2023-04-18 10:14 | Inpatient (IN) ==
--- NOTE | 2023-04-18 10:35 | Emergency Department Note ---
Impression & Plan Large bowel obstruction, Acute dehydration, Abdominal pain, Fecal impaction ED Provider Note NAME: RANDY CASAS AGE: 82 SEX: M : 1940 ARRIVES VIA: Ambulance INFORMANT: Patient, ED PROVIDER(S): Virgilio Bustos MD CHIEF COMPLAINT: Abdominal pain MEDICAL DECISION MAKING: Patient presents due to concern for abdominal pain in the setting of recent fecal retention and diverticulitis. IV was established and blood work is obtained. CT abdomen pelvis performed given the patient's abdominal distention associated upper abdominal pain. Patient has AE1 kidney 10.9 with mild anemia hemoglobin of 13 with a normal platelet count. Kidney function is unremarkable. Elevation in BUN likely secondary to dehydration and decreased p.o. intake. Alk phos 520 one of the patient has had elevated alk phos in the past. Lipase is normal. Chest x-ray does show gaseous distention of the colon. CT abdomen pelvis shows likely pe rsistent acute sigmoid diverticulitis severe fecal retention and impaction with possible large bowel obstruction. I did have the patient's G-tube placed to low intermittent suction. I did speak the on-call general surgery kidney SABRINA Darnell patient was evaluated by Dr. Roman. I did speak with the medicine service and the patient was admitted by Dr. Delgado and pending likely GI consultation as well per general surgery. General surgery wants to defer enema at this time. Prior /Outside records reviewed: I did review a [facility] rehab and wellness services note. The patient's primary care physician is Shahid Torres. The patient is DNR. 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 Differential diagnosis: Bowel obstruction, diverticulitis, intestinal perforation, enteritis, gastroenteritis, pancreatitis, constipation, biliary colic among others were considered. Diagnostics, as interpreted by me: ECG: None Cardiac monitoring: An order was placed for continuous cardiac monitoring. The monitor shows a rate of 100 with sinus rhythm. Patient was placed on pulse oximetry Medical decision rules: None Imaging studies: See below I informally reviewed the patient's CT of the abdomen pelvis which does show gaseous distention of the intestine with associated fecal impaction. HPI: Patient presents with significant other bedside from [facility] due to concern for persistent pain. The patient also has associated cough which feels as though it is productive but is not able to express expectorate. No recent falls or trauma. Patient recent seen in the emergency department for similar symptoms where he was noted to have significant constipation and had a subsequent bowel movement and was treated for diverticulitis. Patient's pain primarily is in the upper abdomen. Patient's had nausea but no vomiting. The patient does have a known history of recent back fractures and has been taking oxycodone which may be contributory to the patient's constipation. PAST MEDICAL HISTORY: See Below PAST SURGICAL HISTORY: See Below SOCIAL HISTORY: See Below HOME MEDICATIONS: See Below ALLERGIES: See Below VITALS: See Below PHYSICAL EXAMINATION: GENERAL: Mildly ill in appearance but nontoxic EYE EXAM: Normal conjunctiva. PERRL, no anisocoria and EOM's grossly intact w/o pain. OROPHARYNX: Dry mucus membranes, grossly normal dentition. NECK: Supple, no nuchal rigidity, no adenopathy, non-tender. No signs of meningismus. FROM of the neck with good chin to chest and neck extension. No stridor. LUNGS: Clear to auscultation. Normal chest wall mechanics. HEART: NSR, no MRG. ABDOMEN: Abdomen soft, upper abdominal pain, G-tube in place, abdominal distention noted. No lower abdominal pain. BACK: No CVA TTP. SKIN: No rashes and no bruising. : Dark yellow urine from Garcia catheter UPPER EXTREMITIES: Upper extremities are grossly normal. LOWER EXTREMITIES: Grossly normal, no edema. NEURO EXAM: A&O x3, cranial nerves II-XII grossly intact, normal speech, moves all 4 extremities. Past Med/Surg History Medical History Head and neck cancer 2010; treated surgically + radiation History of back injury History of kidney stones History of nephrolithotomy with removal of calculi Hx: UTI (urinary tract infection) Hypothyroidism Osteoarthritis Reducible right inguinal hernia Surgical History H/O right inguinal hernia repair (10/21/21) Laparoscopic Right Incarcerated Inguinal Hernia Repair with Mesh(Right) - Salvador Herrera DO 10/21/2021 History of cancer surgery head and neck cancer 2010 History of colonoscopy History of cystoscopy with stone extraction History of open reduction and internal fixation (ORIF) procedure Left wrist Family History Father Brain cancer Brother Cancer Grandfather (Paternal) Cancer Mother Myocardial infarction Other No family history of adverse response to anesthesia No family history of bleeding disorder Social History Smoking Status: Unknown if ever smoked Tobacco Type: Cigarettes Second Hand Exposure: Yes (MOTHER SMOKED); Do You Dip or Chew Tobacco: No; Hx Alcohol Use: No Hx Substance Use: No Preferred Language: French Communication Ability: Effective Visual Impairment: No Limitations Running Instructor Required: No Beliefs That Will Affect Care: None marital status: Current Living Situation: Rehab current occupational status: retired How many Children do You have: 1 Feels Safe at Home: Yes Diet: regular during the past year weight has: remained stable Assistive Devices: Bedside Commode, Walker and Wheelchair Allergies Allergies Allergy/AdvReac Type Severity Reaction Status Date / Time Penicillins Allergy Severe Swelling Verified 04/06/23 10:23 of Lip/Tongue/Throat Home Meds Home Medications Medication Instructions Recorded Confirmed acetaminophen 500 mg tablet 1,000 mg PO TID 01/09/23 04/18/23 cholecalciferol (vitamin D3) 125 125 mcg PO DAILY 01/09/23 04/18/23 mcg (5,000 unit) tablet (Vitamin D3) cyanocobalamin (vitamin B-12) 1,000 mcg PO DAILY 01/09/23 04/18/23 1,000 mcg tablet cyclobenzaprine 10 mg tablet 10 mg PO TID PRN Muscle Spasm 01/09/23 04/18/23 levothyroxine 100 mcg tablet 100 mcg PO QAM 01/09/23 04/18/23 lidocaine 5 % topical patch 1 patch topical QAM 01/09/23 04/18/23 (Lidoderm) ondansetron 4 mg disintegrating 4 mg PO Q4 PRN nausea or vomiting 01/09/23 04/18/23 tablet saliva substitute combo no.9 See Rx Instructions .Route .COMPLEX 01/09/23 04/18/23 (Biotene Dry Mouth Oral Rinse mouthwash) sennosides 8.6 mg-docusate sodium 1 tab-cap PO BID 01/09/23 04/18/23 50 mg tablet (Senna with Docusate Sodium) Fleet Enema See Rx Instructions .Route .COMPLEX 04/18/23 04/18/23 Milk of Magnesia See Rx Instructions .Route .COMPLEX 04/18/23 04/18/23 atorvastatin 20 mg tablet 40 mg PEG HS 04/18/23 04/18/23 bisacodyl 10 mg rectal suppository See Rx Instructions .Route .COMPLEX 04/18/23 04/18/23 (Dulcolax (bisacodyl)) docusate sodium 50 mg/5 mL oral 5 ml PO BID 04/18/23 04/18/23 liquid ferrous sulfate 220 mg (44 mg See Rx Instructions .Route .COMPLEX 04/18/23 04/18/23 iron)/5 mL oral elixir lansoprazole 15 mg delayed 15 mg PO BID 04/18/23 04/18/23 release,disintegrating tablet metoprolol tartrate 12.5 mg PO Q12H 04/18/23 04/18/23 mirtazapine 15 mg tablet (Remeron) 15 mg PO HS 04/18/23 04/18/23 nystatin 100,000 unit/mL oral 100,000 unit PO USEASDIRECTD 04/18/23 04/18/23 suspension oxycodone 5 mg tablet 5 mg PO Q6H PRN Pain 04/18/23 04/18/23 Previous Rx's Medication Instructions Recorded aspirin 81 mg chewable tablet 81 mg PEG DAILY #30 tabs 01/26/23 (Children's Aspirin) Results & Data (ED) Vital Signs Vital Signs - 24 hr 04/18/23 10:53 04/18/23 11:26 04/18/23 13:00 Temperature 36.5 C 36.9 C Temperature Source Oral Oral Pulse Rate 99 H 97 H Pulse Rate [Left] 79 Pulse Rhythm [Left] Regular Pulse Strength [Left] Normal Respiratory Rate 20 18 Respiratory Effort / Characteristics Non-Labored Spontaneous Spontaneous Respiratory Depth Normal Normal Respiratory Pattern Regular Blood Pressure 100/75 Blood Pressure [Left Arm] 102/68 Blood Pressure Mean 83 Blood Pressure Mean [Left Arm] 79 Blood Pressure Position [Left Arm] Lying Pulse Oximetry 94 97 Oxygen Delivery Method Room Air Room Air Sepsis Recent Fever Within 48 Hours No Sepsis New/Unexplained Change in Mental Status N/A Sepsis Action Taken by Nursing No Action Required 04/18/23 15:00 04/18/23 17:00 Temperature 36.9 C 36.7 C Temperature Source Oral Oral Pulse Rate Pulse Rate [Left] 79 100 H Pulse Rhythm [Left] Regular Pulse Strength [Left] Respiratory Rate 18 22 Respiratory Effort / Characteristics Spontaneous Respiratory Depth Normal Respiratory Pattern Blood Pressure Blood Pressure [Left Arm] 104/64 130/84 Blood Pressure Mean Blood Pressure Mean [Left Arm] 77 99 Blood Pressure Position [Left Arm] Lying Pulse Oximetry 96 94 Oxygen Delivery Method Room Air Room Air Sepsis Recent Fever Within 48 Hours Sepsis New/Unexplained Change in Mental Status Sepsis Action Taken by Jail Medications Current Medication List: was personally reviewed by me Laboratory Data Attestation: I reviewed the patient's lab results. 04/18/23 11:10 04/18/23 11:10 Lab Results 04/18/23 04/18/23 04/18/23 Range/Units 11:10 11:10 11:17 WBC 10.99 H (4.8-10.8) K/ul RBC 4.43 L (4.70-6.10) M/uL Hgb 13.3 L (14.0-18.0) g/dl POC Hgb 12.2 L (14.0-18.0) g/dl Hct 39.5 L (42.0-52.0) % POC Hct 36 L (42-52) % MCV 89.2 (80.0-100.0) fL MCH 30.0 (25.0-34.0) pg MCHC 33.7 (32.0-36.0) g/dL RDW Std Deviation 49.9 H (36.4-46.3) fL RDW Coeff of Heidi 15.2 H (11.5-14.5) % Plt Count 385 (130-400) K/uL MPV 10.0 (9.4-12.4) fL Immature Gran % (Auto) 1.9 % Neut % (Auto) 81.9 % Lymph % (Auto) 6.4 % Antelope % (Auto) 8.9 % Eos % (Auto) 0.4 % Baso % (Auto) 0.5 % Neut # (Auto) 9.00 H (1.40-6.50) K/uL Lymph # (Auto) 0.70 L (1.2-3.4) K/uL Antelope # (Auto) 0.98 H (0.11-0.59) K/uL Eos # (Auto) 0.04 (0-0.50) K/uL Baso # (Auto) 0.06 (0-0.2) K/uL Immature Gran # (Auto) 0.21 H (0.01-0.20) K/uL POC Sodium 137 (135-144) mmol/L Sodium 139 (136-145) mmol/L POC Potassium 3.8 (3.3-5.0) mmol/L Potassium 3.9 (3.5-5.1) mmol/L POC Chloride 101 (101-112) mmol/L Chloride 100 (98-107) mmol/L Carbon Dioxide 27 (21-32) mmol/L POC Total CO2 24 (24-31) mmol/L Anion Gap 12 H (3-11) POC Anion Gap 16.0 (16-25) mmol/L POC BUN 33 H (7-18) mg/dl BUN 37 H (6-23) mg/dl Creatinine 1.06 (0.6-1.4) mg/dl POC Creatinine 1.0 (0.6-1.3) mg/dl Est Cr Clr Drug Dosing 51.2 ml/min Est GFR ( Amer) 74.9 ml/min Est GFR (Non-Af Amer) 64.6 ml/min BUN/Creatinine Ratio 34.9 H (10-20) Glucose 99 (70-99(Fasting)) mg/dl POC Glucose (other) 102 H (70-99) mg/dl Calcium 9.5 (8.6-10.3) mg/dl POC Ioniz Calcium Betty 1.13 (1.12-1.32) mmol/l Total Bilirubin 1.1 H (0.2-1.0) mg/dl AST 49 H (13-39) U/L ALT 25 (7-52) U/L Alkaline Phosphatase 521 H (34-104) U/L Total Protein 7.2 (6.0-8.3) gm/dl Albumin 3.4 (3.4-5.0) gm/dl Globulin 3.8 (2.5-4.0) gm/dl Albumin/Globulin Ratio 0.9 (0.9-2) Lipase 23 (11-82) U/L Administered Medications Discontinued Medications Sodium Chloride (Nss) 500 mls @ 999 mls/hr IV .Q31M STA Stop: 04/18/23 11:19 Last Infusion: 04/18/23 13:21 Dose: 0 mls/hr Documented By: Admin: 04/18/23 11:30 Dose: 999 mls/hr Documented By: FREDRICK Ioversol (Optiray 320 100ml) 89 ml IV ONCE ONE Stop: 04/18/23 11:42 Last Admin: 04/18/23 11:41 Dose: 89 ml Documented By: FERMIN Imaging Data Radiologist's Impression: Abdomen/Pelvis CT 04/18/23 10:[address] WITH IV CONTRAST CT DOSE: 1164.06 mGy.cm HISTORY: upper ab pain; distension TECHNIQUE: Multiaxial CT images of the abdomen and pelvis were performed following the use of intravenous contrast. A dose lowering technique was utilized adhering to the principles of ALARA. COMPARISON STUDY: Abdomen and pelvis CT 04/14/2023. FINDINGS: Small bilateral pleural effusions and bibasilar densities have pr ogressed. The heart remains enlarged. Ascending thoracic aorta measures up to 4.4 cm in diameter, unchanged. No pneumoperitoneum. No pneumatosis. The subacute L1 and L2 fractures are again noted. These are better appreciated on the recent lumbar spine CT. Old, healed right-sided rib fractures. A right inguinal mesh is again noted. There is a small fat-containing right inguinal hernia, unchanged. A gastrostomy tube appears in good position. Trace perihepatic ascites. Cholelithiasis. No gallbladder wall thickening. Slightly heterogeneous enhancement within the spleen, unchanged. The liver, adrenal glands, and pancreas are unremarkable. There is trace perihepatic ascites noted. Bilateral nephrolithiasis. A 5 mm nonobstructing stone within the proximal right ureter is no longer identified. Multiple left renal cysts. No hydronephrosis. The main portal vein is patent. Calcified plaque within the normal caliber abdominal aorta. No retroperitoneal or pelvic lymphadenopathy. There is a left retroaortic renal vein. The bladder is decompressed by a Garcia catheter. There is a large amount well-formed stool seen throughout the colon and rectum. This includes a 10 cm rectal stool ball. Findings suggest severe fecal retention/impaction. Focal thickening within the mid sigmoid colon with mild pericolonic fat stranding best seen on image 221 where there appears to be an inflamed diverticulum. Therefore, this likely represents an acute sigmoid diverticulitis. No perforation or abscess at this time. A nonspecific colitis including a stercoral colitis could also have a similar appearance. Markedly distended gas and stool-filled loops of large bowel again noted. There are also mildly distended gas and fluid-filled loops of small bowel. Therefore, this raises the possibility distal large bowel obstruction from the large rectal stool ball. This has slightly progressed in the interval. IMPRESSION: 1. Focal thickening within the mid sigmoid colon with mild pericolonic fat stranding. This is similar to the prior study and likely represents acute sigmoid diverticulitis. A nonspecific colitis including a stercoral colitis could also have a similar appearance. 2. Severe fecal retention/impaction again noted. There is severe distention of the colon possibly representing a large bowel obstruction from the large amount of stool within the rectum. The small bowel loops are also slightly distended and filled with gas and fluid. This has slightly progressed in the interval. 3. Subacute L1 and L2 fractures are again noted. 4. Small bilateral pleural effusions and bibasilar densities have progressed.. 5. Cholelithiasis. 6. Bilateral nephrolithiasis. No hydronephrosis. 7. Additional findings as described above. ACT 112: Negative or not required by law. Electronically signed by: Andrei Puente M.D. 04/18/2023 12:12 PM Chest X-Ray 04/18/23 11:09 XR chest 1V portable HISTORY: 82 years-old Male cough acute cough COMPARISON: 01/10/2023 TECHNIQUE: AP view of the chest FINDINGS: Cardiac silhouette is enlarged. Small pleural effusions with mild bibasilar consolidation. The lungs are hypoinflated. Pulmonary vascular congestion. Degenerative changes of the shoulders and spine. Loose body of the right axillary recess. Gaseous distention of the colon with moderate fecal retention of the imaged right hemicolon. IMPRESSION: 1. Cardiomegaly with pulmonary vascular congestion. 2. Small pleural effusions with mild bibasilar atelectasis. 3. Gaseous distention of the colon. ACT 112: Negative or not required by law. The above report was generated using voice recognition software. It may contain grammatical, syntax or spelling errors. Electronically signed by: Geovanni Echeverria M.D. 04/18/2023 11:58 AM Discharge Plan Visit Data Chief Complaint: Abdominal Pain ED Provider: Virgilio Bustos Discharge Problem: Large bowel obstruction, Acute dehydration, Abdominal pain, Fecal impaction Forms Stand Alone Forms: [facility] [place] [facility] Prescriptions Prescriptions: No Action docusate sodium 50 mg/5 mL Liquid 5 ml PO BID nystatin 100,000 unit/mL Suspension 100,000 unit PO USEASDIRECTD Rx Instructions: 5 ml four times a day for 2 weeks. bisacodyl [Dulcolax (bisacodyl)] 10 mg Suppository See Rx Instructions .ROUTE .COMPLEX Rx Instructions: 1 unit one time only for constipation for 2 day per palliative senior np. See additional order for tap water enema. If no BM in 4 hours, give tap water enema. Document results. mirtazapine [Remeron] 15 mg Tablet 15 mg PO HS oxycodone 5 mg Tablet 5 mg PO Q6H PRN (Reason: Pain) lansoprazole 15 mg Tablet,Disintegrat, Delay Rel 15 mg PO BID ferrous sulfate 220 mg (44 mg iron)/5 mL Elixir See Rx Instructions .ROUTE .COMPLEX Rx Instructions: 7.5 ml am Fleet Enema See Rx Instructions .ROUTE .COMPLEX Rx Instructions: 1 unit as needed for constipation if no BM after Dulcolax Milk of Magnesia 7.75 mg See Rx Instructions .ROUTE .COMPLEX Rx Instructions: 30 ml as needed for constipation after no BM for 3 days metoprolol tartrate 12.5 mg PO Q12H atorvastatin 20 mg tablet 40 mg PEG HS levothyroxine 100 mcg tablet 100 mcg PO QAM sennosides-docusate sodium [Senna with Docusate Sodium] 8.6-50 mg Tablet 1 tab-cap PO BID cyanocobalamin (vitamin B-12) 1,000 mcg Tablet 1,000 mcg PO DAILY cholecalciferol (vitamin D3) [Vitamin D3] 125 mcg (5,000 unit) Tablet 125 mcg PO DAILY lidocaine [Lidoderm] 5 % Adhesive Patch,Medicated 1 patch TOPICAL QAM Rx Instructions: apply to lower back in the morning remove at bedtime acetaminophen 500 mg Tablet 1,000 mg PO TID MDD 3gm apap/24 hours Biotene Dry Mouth Oral Rinse Mouthwash See Rx Instructions .ROUTE .COMPLEX Rx Instructions: 2 sprays every 12 hours for dry mouth cyclobenzaprine 10 mg Tablet 10 mg PO TID PRN (Reason: Muscle Spasm) ondansetron 4 mg Tablet,Disintegrating 4 mg PO Q4 PRN (Reason: nausea or vomiting) aspirin [Children's Aspirin] 81 mg Tablet,Chewable 81 mg PEG DAILY Qty: 30 0RF Referrals Referrals: Shahid Torres III, MD [Primary Care Provider] - Abdominal pain Qualifiers: Abdominal location: epigastric Qualified Code(s): R10.13 - Epigastric pain
[2023-04-18] MEDS ORDERED: SODIUM CHLORIDE 0.9% 500 ML IV STA (10:49)
[2023-04-18 11:30] LABS: iSTAT Hemoglobin 12.2 g/dl (14.0-18.0); iSTAT Ionized Calcium 1.13 mmol/l (1.12-1.32); iSTAT Potassium 3.8 mmol/L (3.3-5.0)
[2023-04-18 11:40] LABS: Basophils # (auto) 0.06 K/uL (0-0.2); Basophils % (auto) 0.5 %; Eosinophils # (auto) 0.04 K/uL (0-0.50); Eosinophils % (auto) 0.4 %; Hematocrit (blood only) 39.5 % (42.0-52.0); Hemoglobin 13.3 g/dl (14.0-18.0); Immature Granulocytes # (auto) 0.21 K/uL (0.01-0.20); Immature Granulocytes % (auto) 1.9 %; Lymphocytes % (auto) 6.4 %; Mean Corpuscular Hgb Conc 33.7 g/dL (32.0-36.0); Mean Corpuscular Volume 89.2 fL (80.0-100.0); Monocytes # (auto) 0.98 K/uL (0.11-0.59); Monocytes % (auto) 8.9 %; Neutrophils % (auto) 81.9 %; Platelet Count 385 K/uL (130-400); RDW Coefficient of Variation 15.2 % (11.5-14.5); RDW Standard Deviation 49.9 fL (36.4-46.3); Red Blood Count 4.43 M/uL (4.70-6.10); White Blood Count 10.99 K/ul (4.8-10.8)
[2023-04-18] MEDS ORDERED: OPTIRAY 320 100ml IV ONE (11:41)
[2023-04-18 11:58] LABS: Albumin Globulin Ratio 0.9 (0.9-2); Albumin Level 3.4 gm/dl (3.4-5.0); BUN Creatinine Ratio 34.9 (10-20); Bilirubin,Total 1.1 mg/dl (0.2-1.0); Calcium 9.5 mg/dl (8.6-10.3); Creatinine Clr Calc Pharmacy 51.2 ml/min; Est GFR (African American) 74.9 ml/min; Est GFR (Non-African American) 64.6 ml/min; Globulin 3.8 gm/dl (2.5-4.0); Potassium 3.9 mmol/L (3.5-5.1); Total Protein 7.2 gm/dl (6.0-8.3)
--- NOTE | 2023-04-18 12:00 | XRay Report ---
XR chest 1V portable HISTORY: 82 years-old Male cough acute cough COMPARISON: 01/10/2023 TECHNIQUE: AP view of the chest FINDINGS: Cardiac silhouette is enlarged. Small pleural effusions with mild bibasilar consolidation. The lungs are hypoinflated. Pulmonary vascular congestion. Degenerative changes of the shoulders and spine. Loo se body of the right axillary recess. Gaseous distention of the colon with moderate fecal retention o f the imaged right hemicolon. IMPRESSION: 1. Cardiomegaly with pulmonary vascular congestion. 2. Small pleural effusions with mild bibasilar atelectasis. 3. Gaseous distention of the colon. ACT 112: Negative or not required by law. The above report was generated using voice recognition software. It may contain grammatical, syntax o r spelling errors. Electronically signed by: Geovanni Echeverria M.D. 04/18/2023 11:58 AM
--- NOTE | 2023-04-18 12:13 | CT Scan Report ---
ABDOMEN AND PELVIS CT WITH IV CONTRAST CT DOSE: 1164.06 mGy.cm HISTORY: upper ab pain; distension TECHNIQUE: Multiaxial CT images of the abdomen and pelvis were performed following the use of intrave nous contrast. A dose lowering technique was utilized adhering to the principles of ALARA. COMPARISON STUDY: Abdomen and pelvis CT 04/14/2023. FINDINGS: Small bilateral pleural effusions and bibasilar densities have progressed. The heart remain s enlarged. Ascending thoracic aorta measures up to 4.4 cm in diameter, unchanged. No pneumoperitoneu m. No pneumatosis. The subacute L1 and L2 fractures are again noted. These are better appreciated on the recent lumbar spine CT. Old, healed right-sided rib fractures. A right inguinal mesh is again not ed. There is a small fat-containing right inguinal hernia, unchanged. A gastrostomy tube appears in g ood position. Trace perihepatic ascites. Cholelithiasis. No gallbladder wall thickening. Slightly het erogeneous enhancement within the spleen, unchanged. The liver, adrenal glands, and pancreas are unre markable. There is trace perihepatic ascites noted. Bilateral nephrolithiasis. A 5 mm nonobstructing stone within the proximal right ureter is no longer identified. Multiple left renal cysts. No hydrone phrosis. The main portal vein is patent. Calcified plaque within the normal caliber abdominal aorta. No retroperitoneal or pelvic lymphadenopathy. There is a left retroaortic renal vein. The bladder is decompressed by a Garcia catheter. There is a large amount well-formed stool seen throughout the colon and rectum. This includes a 10 cm rectal stool ball. Findings suggest severe fecal retention/impacti on. Focal thickening within the mid sigmoid colon with mild pericolonic fat stranding best seen on im age 221 where there appears to be an inflamed diverticulum. Therefore, this likely represents an acut e sigmoid diverticulitis. No perforation or abscess at this time. A nonspecific colitis including a s tercoral colitis could also have a similar appearance. Markedly distended gas and stool-filled loops of large bowel again noted. There are also mildly distended gas and fluid-filled loops of small bowel . Therefore, this raises the possibility distal large bowel obstruction from the large rectal stool b all. This has slightly progressed in the interval. IMPRESSION: 1. Focal thickening within the mid sigmoid colon with mild pericolonic fat stranding. This is similar to the prior study and likely represents acute sigmoid diverticulitis. A nonspecific colitis includi ng a stercoral colitis could also have a similar appearance. 2. Severe fecal retention/impaction again noted. There is severe distention of the colon possibly rep resenting a large bowel obstruction from the large amount of stool within the rectum. The small bowel loops are also slightly distended and filled with gas and fluid. This has slightly progressed in the interval. 3. Subacute L1 and L2 fractures are again noted. 4. Small bilateral pleural effusions and bibasilar densities have progressed.. 5. Cholelithiasis. 6. Bilateral nephrolithiasis. No hydronephrosis. 7. Additional findings as described above. ACT 112: Negative or not required by law. Electronically signed by: Andrei Puente M.D. 04/18/2023 12:12 PM
--- NOTE | 2023-04-18 12:45 | Surgery Consultation ---
Date of Consultation April 18, 2023 Assessment & Plan (1) Acute constipation: 82 year old male with extensive PMH presents to the ER with his for concern of distended abdomen, abdominal pain, and constipation. reports that symptoms started last Sunday and was patient was recently seen the ER 04/14/23 for the same symptoms and was told that patient has diverticulitis. Patient was then d/c and to be on antibiotics and stool softeners. Patients unsure if patient received any antibiotics as he resides at [facility], and is unsure if he received his tube feedings today. Patient denies abdominal pain, and reports that his last bowel movement was "yesterday", denies chest pain, SOB, and nausea . Patients abdomen is distended and firm however he denies abdominal pain while his abdomen was being palpated. Patients reports patient is having pain, the patient was asleep and PMH was obtained from the . Patients speech is difficult to understand. He has a Diaz catheter in place. and patient report his last bowel move was yesterday. CT scan from today reads: IMPRESSION: 1. Focal thickening within the mid sigmoid colon with mild pericolonic fat stranding. This is similar to the prior study and likely represents acute sigmoid diverticulitis. A nonspecific colitis including a stercoral colitis could also have a similar appearance. 2. Severe fecal retention/impaction again noted. There is severe distention of the colon possibly representing a large bowel obstruction from the large amount of stool within the rectum. The small bowel loops are also slightly distended and filled with gas and fluid. This has slightly progressed in the interval. WBC 10.9 Patient will be admitted to medicine Appreciate GI input See note below from attending surgeon. (2) Diverticulitis: Supervising Physician Co-Signing Physician Notes Dr. 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 reports that symptoms started last Sunday and was patient was recently seen the ER 04/14/23 for the same symptoms and was told that patient has diverticulitis. Patient was then d/c and to be on antibiotics and stool softeners. Patients unsure if patient received any antibiotics as he resides at [facility], and is unsure if he received his tube feedings today. Patient denies abdominal pain, and reports that his last bowel movement was "yesterday", denies chest pain, SOB, and nausea. Patient is easily woken however it is difficult to understand his speech. He has a Diaz catheter in place. Allergies Allergy/AdvReac Type Severity Reaction Status Date / Time Penicillins Allergy Severe Swelling Verified 04/06/23 10:23 of Lip/Tongue/Throat Home Medications Medication Instructions Recorded Confirmed Type ferrous sulfate 325 mg (65 mg 0 mg PO DAILY 10/07/21 02/06/23 History iron) tablet (iron) acetaminophen 500 mg tablet 1,000 mg PO Q8 01/09/23 02/06/23 History cholecalciferol (vitamin D3) 125 125 mcg PO DAILY 01/09/23 02/06/23 History mcg (5,000 unit) tablet (Vitamin D3) cyanocobalamin (vitamin B-12) 1,000 mcg PO DAILY 01/09/23 02/06/23 History 1,000 mcg tablet cyclobenzaprine 10 mg tablet 10 mg PO TID PRN Muscle Spasm 01/09/23 02/06/23 History enoxaparin 40 mg/0.4 mL 40 mg subcut DAILY 01/09/23 02/06/23 History subcutaneous syringe levothyroxine 100 mcg tablet 100 mcg PO DAILY 01/09/23 02/06/23 History lidocaine 5 % topical patch 1 patch topical QAM 01/09/23 02/06/23 History (Lidoderm) ondansetron 4 mg disintegrating 4 mg PO Q4 PRN nausea or vomiting 01/09/23 02/06/23 History tablet polyethylene glycol 3350 17 17 g PO DAILY 01/09/23 02/06/23 History gram/dose oral powder (Miralax) saliva substitute combo no.9 1 ea PO Q12 01/09/23 02/06/23 History (Biotene Dry Mouth Oral Rinse mouthwash) sennosides 8.6 mg-docusate sodium 1 tab-cap PO BID 01/09/23 02/06/23 History 50 mg tablet (Senna with Docusate Sodium) aspirin 81 mg chewable tablet 81 mg PEG DAILY #30 tabs 01/26/23 02/06/23 Rx (Children's Aspirin) atorvastatin 20 mg tablet 20 mg PEG QAM #30 tabs 01/26/23 02/06/23 Rx pantoprazole 40 mg tablet,delayed 40 mg PO BID #60 tabs 01/26/23 02/06/23 Rx release (Protonix) sennosides 8.6 mg-docusate sodium 1 tab-cap PO BID #60 tabs 04/14/23 Rx 50 mg tablet (Senna with Docusate Sodium) Patient History Medical History (Updated 04/18/23 @ 13:37 by Ed Delgado MD) Head and neck cancer 2010; treated surgically + radiation History of back injury History of kidney stones History of nephrolithotomy with removal of calculi Hx: UTI (urinary tract infection) Hypothyroidism Osteoarthritis Reducible right inguinal hernia Surgical History H/O right inguinal hernia repair (10/21/21) Laparoscopic Right Incarcerated Inguinal Hernia Repair with Mesh(Right) - Salvador Herrera DO 10/21/2021 History of cancer surgery head and neck cancer 2010 History of colonoscopy History of cystoscopy with stone extraction History of open reduction and internal fixation (ORIF) procedure Left wrist Family History Father Brain cancer Brother Cancer Grandfather (Paternal) Cancer Mother Myocardial infarction Other No family history of adverse response to anesthesia No family history of bleeding disorder Social History Smoking Status: Unknown if ever smoked Tobacco Type: Cigarettes Second Hand Exposure: Yes (MOTHER SMOKED); Do You Dip or Chew Tobacco: No; Hx Alcohol Use: No Hx Substance Use: No Preferred Language: French Communication Ability: Effective Visual Impairment: No Limitations Mechanic Driver Required: No Beliefs That Will Affect Care: None marital status: Current Living Situation: Rehab current occupational status: retired How many Children do You have: 1 Feels Safe at Home: Yes Diet: regular during the past year weight has: remained stable Assistive Devices: Bedside Commode, Walker and Wheelchair Review of Systems Constitutional: no fever and no chills Respiratory: no dyspnea Cardiovascular: no chest pain Gastrointestinal: + abdominal pain, + bloating and + nausea; no vomiting Genitourinary: + problem reported (has diaz catheter) Physical Exam Constitutional: cooperative; no acute distress patient asleep, obtained history from , easily awoken. Speech is difficult to understand. Respiratory: normal respiratory effort; no respiratory distress and does not use accessory muscles Cardiovascular: Rate/Rhythm: + tachycardic (97) Gastrointestinal (Abdomen): Percussion/Palpation: + abdomen rigid and + abdomen firm; no guarding has gastric tube in place Results & Data Vital Signs (Past 12 Hours) Vital Signs Temp Pulse Resp BP Pulse Ox O2 Del Method 04/18/23 11:26 97 H 04/18/23 10:53 97.7 F 99 H 20 100/75 94 Room Air Diagnostic Findings [place], [place] [phone] CT Scan Report Patient:RANDY CASAS Admit Date:04/18/23 MR#:[id number] Address1:[address] [place] [address] Acct ID:[id number] Address2:[facility] Date:1940 [facility] Zip:[place] [address] Age:82 Location:ED Sex:M Room/Bed: Att Phy: Diagnosis:ABDOMINAL PAIN Stephanie Phy:Shahid Torres III, MD Service Date:04/18/23 [facility] Phy: Interpreting Phy:Andrei Hollisit Phy: Ordering Phy:Virgilio Bustos MD cc: ~ ABDOMEN AND PELVIS CT WITH IV CONTRAST CT DOSE: 1164.06 mGy.cm HISTORY: upper ab pain; distension TECHNIQUE: Multiaxial CT images of the abdomen and pelvis were performed following the use of intravenous contrast. A dose lowering technique was utilized adhering to the principles of ALARA. COMPARISON STUDY: Abdomen and pelvis CT 04/14/2023. FINDINGS: Small bilateral pleural effusions and bibasilar densities have progressed. The heart remains enlarged. Ascending thoracic aorta measures up to 4.4 cm in diameter, unchanged. No pneumoperitoneum. No pneumatosis. The subacute L1 and L2 fractures are again noted. These are better appreciated on the recent lumbar spine CT. Old, healed right-sided rib fractures. A right inguinal mesh is again noted. There is a small fat-containing right inguinal hernia, unchanged. A gastrostomy tube appears in good position. Trace perihepatic ascites. Cholelithiasis. No gallbladder wall thickening. Slightly heterogeneous enhancement within the spleen, unchanged. The liver, adrenal glands, and pancreas are unremarkable. There is trace perihepatic ascites noted. Bilateral nephrolithiasis. A 5 mm nonobstructing stone within the proximal right ureter is no longer identified. Multiple left renal cysts. No hydronephrosis. The main portal vein is patent. Calcified plaque within the normal caliber abdominal aorta. No retroperitoneal or pelvic lymphadenopathy. There is a left retroaortic renal vein. The bladder is decompressed by a Diaz catheter. There is a large amount well-formed stool seen throughout the colon and rectum. This includes a 10 cm rectal stool ball. Findings suggest severe fecal retention/impaction. Focal thickening within the mid sigmoid colon with mild pericolonic fat str anding best seen on image 221 where there appears to be an inflamed diverticulum. Therefore, this likely represents an acute sigmoid diverticulitis. No perforation or abscess at this time. A nonspecific colitis including a stercoral colitis could also have a similar appearance. Markedly distended gas and stool-filled loops of large bowel again noted. There are also mildly distended gas and fluid-filled loops of small bowel. Therefore, this raises the possibility distal large bowel obstruction from the large rectal stool ball. This has slightly progressed in the interval. IMPRESSION: 1. Focal thickening within the mid sigmoid colon with mild pericolonic fat stranding. This is similar to the prior study and likely represents acute sigmoid diverticulitis. A nonspecific colitis including a stercoral colitis could also have a similar appearance. 2. Severe fecal retention/impaction again noted. There is severe distention of the colon possibly representing a large bowel obstruction from the large amount of stool within the rectum. The small bowel loops are also slightly distended and filled with gas and fluid. This has slightly progressed in the interval. 3. Subacute L1 and L2 fractures are again noted. 4. Small bilateral pleural effusions and bibasilar densities have progressed.. 5. Cholelithiasis. 6. Bilateral nephrolithiasis. No hydronephrosis. 7. Additional findings as described above. ACT 112: Negative or not required by law. Electronically signed by: Andrei Puente M.D. 04/18/2023 12:12 PM Dictated:04/18/23 1201 Transcribed: 04/18/23 1201 PG Care Time/CCT Total # of Minutes Spent Total Time Spent with Patient: Total time spent is greater than 50% in coordination of care (as documented) at patient's floor/unit and/or counseling patient: Coding Level of Care Code 70537 OP VST NEW LOW 30-44 MIN Diagnoses Acute constipation K59.00 Diverticulitis K57.92
--- NOTE | 2023-04-18 13:07 | Surgery Progress Note ---
Date of Service April 18, 2023 Assessment & Plan (1) Acute constipation: Plan: Patient with abdominal pain and distention It appears most of this is related to his colon which appears to be secondary to severe fecal retention in his rectosigmoid He apparently does take oxycodone-initially this was given to him for severe back pain from a back fracture-which is apparently now healed I do not believe the patient needs acute surgical intervention at this time-if he did for worsening colonic distention or perforation He would definitely require a colostomy and I have conveyed this to his partnerFrancis We will asked the GI team to help us in this situation Also the patient may require nursing to provide manual disimpaction Subjective See prior note by You Cortés And also assessment and plan Results & Data Vital Signs (Past 12 Hours) Vital Signs Temp Pulse Resp BP Pulse Ox O2 Del Method 04/18/23 11:26 97 H 04/18/23 10:53 36.5 C 99 H 20 100/75 94 Room Air PG Care Time/CCT Total # of Minutes Spent Total Time Spent with Patient: Total time spent is greater than 50% in coordination of care (as documented) at patient's floor/unit and/or counseling patient: Coding Level of Care Code None Diagnoses Acute constipation K59.00
--- NOTE | 2023-04-18 13:39 | History & Physical Report ---
Date of Service April 18, 2023 Assessment & Plan (1) Acute constipation: Plan: Patient presents with large bowel obstruction with possible diverticulitis or stercoral colitis. Patiently placed on Cipro and Flagyl due to his penicillin allergy We will attempt enemas & disimpaction and cathartic agents to relieve the large stool burden Appreciate general surgery following along General surgery request GI consultation (2) CVA (cerebral vascular accident): Plan: Recent CVA with left hemiparesis PEG tube in place for feeding. Patient takes aspirin, atorvastatin which will be held due to his n.p.o. status The stroke is fairly recent and events Patient is a history of PSVT will check EKG for A-fib it was mentioned in the record at different times Given his n.p.o. status the patient be hydrated with normal saline, if his n.p.o. status is significant we may consider alternative feeding sources Plan Patient's other routine medications including Synthroid are held at this time Given recent lumbar compression fractures he will have IV Tylenol Lidoderm patch Patient is a DNR/DNI per emergency room and previous records DVT prevention will be SCDs as if patient decompensates surgical intervention may be required subsequent to avoid chemoprophylaxis History of Present Illness Primary Care Provider: Shahid Torres MD 82 M resident of [facility], presented with large bowel obstruction with massive constipation. has h/o CVA with left hemiparesis. Pt has peg tube in place and was seen on 04/14 for the dame symptoms, dx with diverticulitis dc on stool softeners, Returns with increased pain CT imaging may also suggest some diverticulitis, with pericolonic fat stranding but this could also be stercoral colitis. Pt had been on opioids due to compression fractures Pt was seen by General surgery and recommended conservative management Allergies Allergy/AdvReac Type Severity Reaction Status Date / Time Penicillins Allergy Severe Swelling Verified 04/06/23 10:23 of Lip/Tongue/Throat Home Medications Medication Instructions Recorded Confirmed Type ferrous sulfate 325 mg (65 mg 0 mg PO DAILY 10/07/21 02/06/23 History iron) tablet (iron) acetaminophen 500 mg tablet 1,000 mg PO Q8 01/09/23 02/06/23 History cholecalciferol (vitamin D3) 125 125 mcg PO DAILY 01/09/23 02/06/23 History mcg (5,000 unit) tablet (Vitamin D3) cyanocobalamin (vitamin B-12) 1,000 mcg PO DAILY 01/09/23 02/06/23 History 1,000 mcg tablet cyclobenzaprine 10 mg tablet 10 mg PO TID PRN Muscle Spasm 01/09/23 02/06/23 History enoxaparin 40 mg/0.4 mL 40 mg subcut DAILY 01/09/23 02/06/23 History subcutaneous syringe levothyroxine 100 mcg tablet 100 mcg PO DAILY 01/09/23 02/06/23 History lidocaine 5 % topical patch 1 patch topical QAM 01/09/23 02/06/23 History (Lidoderm) ondansetron 4 mg disintegrating 4 mg PO Q4 PRN nausea or vomiting 01/09/23 02/06/23 History tablet polyethylene glycol 3350 17 17 g PO DAILY 01/09/23 02/06/23 History gram/dose oral powder (Miralax) saliva substitute combo no.9 1 ea PO Q12 01/09/23 02/06/23 History (Biotene Dry Mouth Oral Rinse mouthwash) sennosides 8.6 mg-docusate sodium 1 tab-cap PO BID 01/09/23 02/06/23 History 50 mg tablet (Senna with Docusate Sodium) aspirin 81 mg chewable tablet 81 mg PEG DAILY #30 tabs 01/26/23 02/06/23 Rx (Children's Aspirin) atorvastatin 20 mg tablet 20 mg PEG QAM #30 tabs 01/26/23 02/06/23 Rx pantoprazole 40 mg tablet,delayed 40 mg PO BID #60 tabs 01/26/23 02/06/23 Rx release (Protonix) sennosides 8.6 mg-docusate sodium 1 tab-cap PO BID #60 tabs 04/14/23 Rx 50 mg tablet (Senna with Docusate Sodium) Past Med/Surg History Medical History (Updated 04/18/23 @ 13:37 by Ed Delgado MD) Head and neck cancer 2010; treated surgically + radiation History of back injury History of kidney stones History of nephrolithotomy with removal of calculi Hx: UTI (urinary tract infection) Hypothyroidism Osteoarthritis Reducible right inguinal hernia Surgical History H/O right inguinal hernia repair (10/21/21) Laparoscopic Right Incarcerated Inguinal Hernia Repair with Mesh(Right) - Salvador Herrera DO 10/21/2021 History of cancer surgery head and neck cancer 2010 History of colonoscopy History of cystoscopy with stone extraction History of open reduction and internal fixation (ORIF) procedure Left wrist Family History Father Brain cancer Brother Cancer Grandfather (Paternal) Cancer Mother Myocardial infarction Other No family history of adverse response to anesthesia No family history of bleeding disorder Social History Smoking Status: Unknown if ever smoked Tobacco Type: Cigarettes Second Hand Exposure: Yes (MOTHER SMOKED); Do You Dip or Chew Tobacco: No; Hx Alcohol Use: No Hx Substance Use: No Preferred Language: Montserratian Communication Ability: Effective Visual Impairment: No Limitations Research Soil Scientist Required: No Beliefs That Will Affect Care: None marital status: Current Living Situation: Rehab current occupational status: retired How many Children do You have: 1 Feels Safe at Home: Yes Diet: regular during the past year weight has: remained stable Assistive Devices: Bedside Commode, Walker and Wheelchair Review of Systems Review of Systems: Unobtainable due to cognitive status Physical Exam Physical Exam: The patient appeared chronically ill and despondent he can speak with short sentences. Vital signs as documented. Head exam is normocephalic atraumatic Neck is without JVD, thyromegaly, or carotid bruits. Lungs are clear to auscultation, no focal loss of breath sounds Cardiac exam, Rhythm is regular.. No murmurs, rubs or gallops. Abdominal exam reveals hyperactive bowel sounds significant distention extremely uncomfortable to examination however not firm or rigid Extremities are nonedematous and both pedal pulses are present Neurologic exam is alert and oriented, patient is left-sided hemiparesis Results & Data Results & Data Vital Signs (Past 12 Hours) Vital Signs Temp Pulse Resp BP Pulse Ox O2 Del Method 04/18/23 11:26 97 H 04/18/23 10:53 97.7 F 99 H 20 100/75 94 Room Air Laboratory Results Reviewed CBC reviewed chemistry Reviewed CT scan abdomen pelvis Reviewed general surgery consultation ECG Additional Comments: Pending EKG at time of transfer PG Care Time/CCT Total # of Minutes Spent Total Time Spent with Patient: Total time spent is greater than 50% in coordination of care (as documented) at patient's floor/unit and/or counseling patient: Coding Level of Care Code 39423 INT INP/OBS CARE 3/75MIN Diagnoses Acute constipation K59.00 CVA (cerebral vascular accident) I63.9
[2023-04-18] MEDS ORDERED: ONDANSETRON INJ 2 MG/ML 2 ML VIAL IV PRN (18:16)
[2023-04-18] MEDS ORDERED: ACETAMINOPHEN 10MG/ML Custom 1,000 MG in EMPTY BAG 0 ML IV PRN (18:16)
[2023-04-18] MEDS: SODIUM CHLORIDE 0.9% 1000ML 1,000 ML IV SCH (18:44)
[2023-04-18] MEDS ORDERED: METHYLNALTREXONE BROMIDE 12 MG/0.6 ML VIAL SQ SCH (19:00)
[2023-04-18] MEDS: CIPROFLOXACIN / D5W 400 MG/200 ML BAG IV SCH (21:30)
[2023-04-18] MEDS: metroNIDAZOLE 500 MG/100 ML BAG IV SCH (21:31)
[2023-04-18] MEDS: FAMOTIDINE 20 MG in SYRINGE 3 ML IV SCH (21:31)
[2023-04-19] MEDS: metroNIDAZOLE 500 MG/100 ML BAG IV SCH ×3 (02:50→18:00)
[2023-04-19 03:20] LABS: Appearance Urine Turbid (Clear); Bacteria Urine Automated 4+ (Negative); Bilirubin Urine Negative (Negative); Blood Urine 2+ (Negative); Color Urine Dark Yellow; Glucose Urine UA Negative (Negative); Ketones Urine Trace (Negative); Leukocyte Esterase Urine 2+ (Negative); Nitrite Urine Positive (Negative); Protein Urine 2+ (Negative); Specific Gravity Urine > 1.045 (1.000-1.030); Urobilinogen Urine Negative (Negative); WBC Urine Automated >30 /hpf (0-5)
[2023-04-19 03:32] LABS: Calcium Oxalate Crystals Urine Present (None Prsent)
[2023-04-19] MEDS: CIPROFLOXACIN / D5W 400 MG/200 ML BAG IV SCH ×2 (05:56→18:00)
[2023-04-19] MEDS: SODIUM CHLORIDE 0.9% 1000ML 1,000 ML IV SCH ×2 (05:57→14:04)
--- NOTE | 2023-04-19 06:05 | Surgery Progress Note ---
Date of Service April 19, 2023 Assessment & Plan (1) Fecal impaction: Plan: His dilated colon is likely secondary to chronic constipation and fecal impaction This is a major problem in this individual The nurse attempted to digitally manipulate the stool however he did not tolerate this well She did give him an enema which had minimal effect We will need to continue to try the above with digital fragmentation of the stool if possible and we will try mineral oil enema GI team is to help us in this situation Surgical intervention would be a diverting colostomy Admission and Anticipated Discharge Date Admission Date: April 18, 2023 Subjective Patient seems to be resting comfortably at this present time Did not receive any narcotics for pain See assessment and plan Review of Systems Constitutional: no fever and no chills Respiratory: no dyspnea Cardiovascular: no chest pain Gastrointestinal: + abdominal pain, + bloating and + nausea; no vomiting Genitourinary: + problem reported (has diaz catheter) Physical Exam Physical Exam: Patient's abdomen is distended and tympanitic He does have some decreased bowel sounds Minimal tenderness Constitutional: no acute distress Eyes: + anicteric sclerae Respiratory: normal respiratory effort; no respiratory distress Gastrointestinal (Abdomen): Inspection/Auscultation: + abdomen distended Musculoskeletal: Head/Neck/Chest: head atraumatic Skin: no rashes, warm and dry Results & Data Vital Signs (Past 12 Hours) Vital Signs Temp Pulse Resp BP BP Pulse Ox O2 Del Method 04/18/23 21:57 Room Air 04/18/23 21:39 36.6 C 100 H 18 108/70 95 Room Air 04/18/23 18:16 Room Air 04/18/23 18:16 37.0 C 110 H 18 132/79 92 Room Air PG Care Time/CCT Total # of Minutes Spent Total Time Spent with Patient: Total time spent is greater than 50% in coordination of care (as documented) at patient's floor/unit and/or counseling patient: Coding Level of Care Code 17890 SUB INP/OBS CARE 2/35MIN Diagnoses Fecal impaction K56.41
--- NOTE | 2023-04-19 08:55 | Hospitalist Progress Note ---
Date of Service April 19, 2023 Assessment & Plan (1) Acute constipation: Plan: Patient presents with large bowel obstruction with possible diverticulitis or stercoral colitis. Patiently placed on Cipro and Flagyl due to his penicillin allergy We will attempt enemas & disimpaction and cathartic agents to relieve the large stool burden Appreciate general surgery following along General surgery request GI consultation, they ordered tap water enemas and bisacodyl with recommendation for relistor again (2) CVA (cerebral vascular accident): Plan: Recent CVA with left hemiparesis PEG tube in place for feeding. Patient takes aspirin, atorvastatin which will be held due to his n.p.o. status The stroke is fairly recent and events Patient is a history of PSVT will check EKG for A-fib it was mentioned in the record at different times Given his n.p.o. status the patient be hydrated with normal saline, if his n.p.o. status is significant we may consider alternative feeding sources Plan Patient's other routine medications including Synthroid are held at this time Given recent lumbar compression fractures he will have IV Tylenol Lidoderm patch Patient is a DNR/DNI per emergency room and previous records DVT prevention chemoprophylaxis Admission and Anticipated Discharge Date Admission Date: April 18, 2023 Subjective patient without much improvement. He was intolerant of rectal disimpaction and did not have much success with mineral oil enema, soapsuds enema and now he is being put on scheduled tapwater enemas by GI medicine with recommendation to bisacodyl suppository and Relistor dose on the patient self feels somewhat more hopeful but is not improved Physical Exam Physical Exam: The patient appeared chronically ill and remains despondent Vital signs as documented. Head exam is normocephalic atraumatic Neck is without JVD, thyromegaly, or carotid bruits. Lungs are clear to auscultation, no focal loss of breath sounds Cardiac exam, Rhythm is regular.. No murmurs, rubs or gallops. Abdominal exam reveals hyperactive bowel sounds significant distention extremely uncomfortable to examination however not firm or rigid Extremities are nonedematous and both pedal pulses are present Neurologic exam is alert and oriented, patient is left-sided hemiparesis Results & Data Results & Data Vital Signs (Past 12 Hours) Vital Signs Temp Pulse Pulse Resp BP Pulse Ox O2 Del Method 04/19/23 07:14 97.5 F L 87 18 113/69 95 Room Air 04/18/23 21:57 Room Air 04/18/23 21:39 97.9 F 100 H 18 108/70 95 Room Air PG Care Time/CCT Total # of Minutes Spent Total Time Spent with Patient: Total time spent is greater than 50% in coordination of care (as documented) at patient's floor/unit and/or counseling patient: Coding Level of Care Code 23680 SUB INP/OBS CARE 2/35MIN Diagnoses Acute constipation K59.00 CVA (cerebral vascular accident) I63.9
[2023-04-19] MEDS ORDERED: MINERAL OIL ENEMA 133 ML BTL PR ONE (09:00)
[2023-04-19 09:01] LABS: Hematocrit (blood only) 35.1 % (42.0-52.0); Mean Corpuscular Hemoglobin 29.9 pg (25.0-34.0); Mean Corpuscular Hgb Conc 31.3 g/dL (32.0-36.0); Mean Corpuscular Volume 95.4 fL (80.0-100.0); Mean Platelet Volume 10.2 fL (9.4-12.4); Platelet Count 303 K/uL (130-400); RDW Coefficient of Variation 15.8 % (11.5-14.5); RDW Standard Deviation 55.4 fL (36.4-46.3); Red Blood Count 3.68 M/uL (4.70-6.10); White Blood Count 10.31 K/ul (4.8-10.8)
[2023-04-19] MEDS: FAMOTIDINE 20 MG in SYRINGE 3 ML IV SCH ×2 (09:39→20:02)
[2023-04-19] MEDS: LIDOCAINE 5% 1 PATCH TD SCH (09:40)
[2023-04-19 09:50] LABS: Calcium 8.7 mg/dl (8.6-10.3); Potassium 3.6 mmol/L (3.5-5.1)
[2023-04-19 09:56] LABS: BUN Creatinine Ratio 42.7 (10-20); Creatinine Clr Calc Pharmacy 50.8 ml/min; Est GFR (African American) 77.5 ml/min; Est GFR (Non-African American) 66.9 ml/min
[2023-04-19] MEDS ORDERED: bisacodyL 5 MG TABEC PO ONE ×2 (10:15→12:32)
[2023-04-19] MEDS ORDERED: ERYTHROMYCIN 250 MG in SODIUM CHLORIDE 0.9% 250 ML IV ONE (10:30)
--- NOTE | 2023-04-19 11:24 | Gastrointestinal Consultation ---
Date of Consultation April 19, 2023 Assessment & Plan (1) Fecal impaction: (2) Constipation due to opioid therapy: Relistor given today. Avoid narcotics Plan 1. Consider PEG tube to suction 2. 1 Liter tap water enemas 3x/day regularly here at [facility] 3. Dulcolax 10mg via NG BID regularly. 4. Will consider repeating Relistor on 04/21. 5. KUB tomorrow AM 6. Replace K to >4.0 7. Will continue to follow. Supervising Physician Co-Signing Physician Notes Attg add: I interviewed and examined pt. Pt with imaging showing chronic megarectum now admit acute onset abd pain, distention, constipation. Unclear when last BM. ER visit 04/14, dx'd diverticulitis, returned 04/18. Imaging shows marked stool in rectum, possible focal inflammation around sigmoid tic. Of note, imaging shows SB distention with AF levels, and fecalization in cecum. Reportedly recently on narcotics. On exam, abd is distended and tympanic without tenderness. He received one dose of Relistor. RECS: Fecal impaction, causing large bowel obstruction - PEG tube to suction, NPO. Mineral oil enema per surgery, followed by scheduled TW enemasq 4-6 hours. Cont abx for tic-itis. One dose emycin, followed by oral scheduled dulcolax. Would ask hospitalist to follow up Mag level, check TSH given h/o hypotyhyroid, supplement K if < 4. History of Present Illness Reason for Consultation: large bowel stercoral colitis Requesting Physician: Dr. Delgado Attending Physician: Ed Delgado MD History of Present Illness Mr. Arnulfo Modi is an 82 yr old male pt of Dr. Cheyenne orosco a hx of CVA, on narcotics for compression fractures, HTN, Hypothyroidism, throat cancer, CHF, urinary retention. He was brought to [facility] ED yesterday for constipation, abd distention. GI is consulted for this and CT is showing mild simgoid colon focal thickening, large bowel dilation, severe fecal retention/impaction - all chronic findings. Unable to obtain ROS from the pt (non verbal). Review of records shows that he is on Miralax 17gm daily and Senna/docusate BID. Allergies Allergy/AdvReac Type Severity Reaction Status Date / Time Penicillins Allergy Severe Swelling Verified 04/06/23 10:23 of Lip/Tongue/Throat Home Medications Medication Instructions Recorded Confirmed Type acetaminophen 500 mg tablet 1,000 mg PO TID 01/09/23 04/18/23 History cholecalciferol (vitamin D3) 125 125 mcg PO DAILY 01/09/23 04/18/23 History mcg (5,000 unit) tablet (Vitamin D3) cyanocobalamin (vitamin B-12) 1,000 mcg PO DAILY 01/09/23 04/18/23 History 1,000 mcg tablet cyclobenzaprine 10 mg tablet 10 mg PO TID PRN Muscle Spasm 01/09/23 04/18/23 History levothyroxine 100 mcg tablet 100 mcg PO QAM 01/09/23 04/18/23 History lidocaine 5 % topical patch 1 patch topical QAM 01/09/23 04/18/23 History (Lidoderm) ondansetron 4 mg disintegrating 4 mg PO Q4 PRN nausea or vomiting 01/09/23 04/18/23 History tablet saliva substitute combo no.9 See Rx Instructions .Route .COMPLEX 01/09/23 04/18/23 History (Biotene Dry Mouth Oral Rinse mouthwash) sennosides 8.6 mg-docusate sodium 1 tab-cap PO BID 01/09/23 04/18/23 History 50 mg tablet (Senna with Docusate Sodium) aspirin 81 mg chewable tablet 81 mg PEG DAILY #30 tabs 01/26/23 04/18/23 Rx (Children's Aspirin) Fleet Enema See Rx Instructions .Route .COMPLEX 04/18/23 04/18/23 History Milk of Magnesia See Rx Instructions .Route .COMPLEX 04/18/23 04/18/23 History atorvastatin 20 mg tablet 40 mg PEG HS 04/18/23 04/18/23 History bisacodyl 10 mg rectal suppository See Rx Instructions .Route .COMPLEX 04/18/23 04/18/23 History (Dulcolax (bisacodyl)) docusate sodium 50 mg/5 mL oral 5 ml PO BID 04/18/23 04/18/23 History liquid ferrous sulfate 220 mg (44 mg See Rx Instructions .Route .COMPLEX 04/18/23 04/18/23 History iron)/5 mL oral elixir lansoprazole 15 mg delayed 15 mg PO BID 04/18/23 04/18/23 History release,disintegrating tablet metoprolol tartrate 12.5 mg PO Q12H 04/18/23 04/18/23 History mirtazapine 15 mg tablet (Remeron) 15 mg PO HS 04/18/23 04/18/23 History nystatin 100,000 unit/mL oral 100,000 unit PO USEASDIRECTD 04/18/23 04/18/23 History suspension oxycodone 5 mg tablet 5 mg PO Q6H PRN Pain 04/18/23 04/18/23 History Patient History Medical History Head and neck cancer 2010; treated surgically + radiation History of back injury History of kidney stones History of nephrolithotomy with removal of calculi Hx: UTI (urinary tract infection) Hypothyroidism Osteoarthritis Reducible right inguinal hernia Surgical History H/O right inguinal hernia repair (10/21/21) Laparoscopic Right Incarcerated Inguinal Hernia Repair with Mesh(Right) - Salvador Herrera DO 10/21/2021 History of cancer surgery head and neck cancer 2010 History of colonoscopy History of cystoscopy with stone extraction History of open reduction and internal fixation (ORIF) procedure Left wrist Family History Father Brain cancer Brother Cancer Grandfather (Paternal) Cancer Mother Myocardial infarction Other No family history of adverse response to anesthesia No family history of bleeding disorder Social History Smoking Status: Never smoker Tobacco Type: Cigarettes Second Hand Exposure: Yes (MOTHER SMOKED); Do You Dip or Chew Tobacco: No; Hx Alcohol Use: No Hx Substance Use: No Preferred Language: Argentine Communication Ability: Effective Visual Impairment: No Limitations Cartographic Aide Required: No Beliefs That Will Affect Care: None marital status: Current Living Situation: Long-Term current occupational status: retired How many Children do You have: 1 Feels Safe at Home: Yes Safety Concerns: Feels Safe At This Time Diet: regular during the past year weight has: remained stable Assistive Devices: Bedside Commode, Walker and Wheelchair Review of Systems Review of Systems: Unable to provide ROS Physical Exam Constitutional: + ill appearing (chronically) and + obese Eyes: PERRL, conjunctivae normal, anicteric sclerae ENMT: external ear and nose normal, oropharynx normal Neck: trachea midline, no thyromegaly Respiratory: normal respiratory effort; no cough Auscultation: + diminished lung sounds (at bases) Cardiovascular: Rate/Rhythm: regular rate and regular rhythm Gastrointestinal (Abdomen): very distended, moderately firm, BS hypoactive Musculoskeletal: left hemiparesis Skin: no rashes, warm and dry Neurologic: left hemiparesis Psychiatric: non verbal, doesn't respond to commands, no evidence of aggitation Lymphatic: no cervical or axillary lymphadenopathy Results & Data Vital Signs (Past 12 Hours) Vital Signs Temp Pulse Resp BP Pulse Ox O2 Del Method 04/19/23 07:14 36.4 C L 87 18 113/69 95 Room Air Laboratory Results WBC 10, Hb 13, hct 39, Plts 385, Na 137, K 3.8, Cl 101, CO2 22, BUN 37, Cr 1.06 Diagnostic Findings CTAP w contrast 04/18/23: 1. Focal thickening within the mid sigmoid colon with mild pericolonic fat stranding. This is similar to the prior study and likely represents acute sigmoid diverticulitis. A nonspecific colitis including a stercoral colitis could also have a similar appearance. 2. Severe fecal retention/impaction again noted. There is severe distention of the colon possibly representing a large bowel obstruction from the large amount of stool within the rectum. The small bowel loops are also slightly distended and filled with gas and fluid. This has slightly progressed in the interval. 3. Subacute L1 and L2 fractures are again noted. 4. Small bilateral pleural effusions and bibasilar densities have progressed.. 5. Cholelithiasis. 6. Bilateral nephrolithiasis. No hydronephrosis. 7. Additional findings as described above.
[2023-04-19] MEDS ORDERED: bisacodyL 10 MG SUPP PR STA (15:04)
--- NOTE | 2023-04-19 15:46 | Electrocardiogram Report ---
Test Reason : Blood Pressure : / mmHG Vent. Rate : 100 BPM Atrial Rate : 100 BPM P-R Int : 212 ms QRS Dur : 076 ms QT Int : 310 ms P-R-T Axes : 026 -01 125 degrees QTc Int : 399 ms Sinus rhythm with 1st degree A-V block Inferior infarct , age undetermined Abnormal ECG When compared with ECG of 14-APR-2023 13:29, Premature atrial complexes are no longer Present Inferior infarct is now Present QT has shortened Confirmed by Saulo Silver ([id number]) on 04/19/2023 3:46:29 PM Referred By: REFERRED SELF Confirmed By:Saulo Silver
[2023-04-20] MEDS: metroNIDAZOLE 500 MG/100 ML BAG IV SCH ×3 (03:23→18:04)
[2023-04-20] MEDS: SODIUM CHLORIDE 0.9% 1000ML 1,000 ML IV SCH ×3 (05:26→19:24)
[2023-04-20] MEDS: CIPROFLOXACIN / D5W 400 MG/200 ML BAG IV SCH ×2 (06:03→18:04)
[2023-04-20] MEDS ORDERED: MINERAL OIL 30 ML UDC PO ONE (07:34)
--- NOTE | 2023-04-20 07:49 | Surgery Progress Note ---
Date of Service April 20, 2023 Assessment & Plan (1) Fecal impaction: Plan: Minimal change in his abdomen No evidence of peritonitis No solid stool passed-apparently relatively firm somewhat high per the nurses He did tolerate a 500 cc tap water enema yesterday x1 and passed fluid in flatus GI plan was for 3x/day tapwater enemas I did order one for this morning and will discuss plan with GI team later KUB has been ordered If Patient requires surgery he will end up with a colostomy-will likely not improve his overall quality of life Should trial we can to avoid this Dr. Canales is covering over the weekend Admission and Anticipated Discharge Date Admission Date: April 18, 2023 Subjective Today patient is awake but somewhat confused Seems to be very alert No pain See assessment and plan Review of Systems Constitutional: no fever and no chills Respiratory: no dyspnea Cardiovascular: no chest pain Gastrointestinal: + abdominal pain, + bloating and + nausea; no vomiting Genitourinary: + problem reported (has diaz catheter) Physical Exam Physical Exam: Patient's abdomen is distended and tympanitic He does have some decreased bowel sounds Minimal tenderness Constitutional: no acute distress Eyes: + anicteric sclerae Respiratory: normal respiratory effort; no respiratory distress Gastrointestinal (Abdomen): Inspection/Auscultation: + abdomen distended Musculoskeletal: Head/Neck/Chest: head atraumatic Skin: no rashes, warm and dry Results & Data Vital Signs (Past 12 Hours) Vital Signs Temp Pulse Resp BP Pulse Ox O2 Del Method 04/19/23 21:36 36.5 C 84 16 123/68 95 Room Air PG Care Time/CCT Total # of Minutes Spent Total Time Spent with Patient: Total time spent is greater than 50% in coordination of care (as documented) at patient's floor/unit and/or counseling patient: Coding Level of Care Code 25801 SUB INP/OBS CARE 2/35MIN Diagnoses Fecal impaction K56.41
[2023-04-20 09:00] LABS: Calcium 8.4 mg/dl (8.6-10.3); Magnesium 2.1 mg/dl (1.7-2.4); Potassium 2.9 mmol/L (3.5-5.1)
[2023-04-20 09:06] LABS: BUN Creatinine Ratio 42.9 (10-20); Creatinine Clr Calc Pharmacy 62.3 ml/min; Est GFR (African American) 93.8 ml/min
[2023-04-20 09:23] LABS: Hemoglobin 10.5 g/dl (14.0-18.0); Mean Corpuscular Hemoglobin 29.6 pg (25.0-34.0); Mean Corpuscular Hgb Conc 32.8 g/dL (32.0-36.0); Mean Corpuscular Volume 90.1 fL (80.0-100.0); Platelet Count 301 K/uL (130-400); RDW Coefficient of Variation 15.6 % (11.5-14.5); RDW Standard Deviation 51.8 fL (36.4-46.3); Red Blood Count 3.55 M/uL (4.70-6.10); White Blood Count 7.86 K/ul (4.8-10.8)
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
[2023-04-20] MEDS: LIDOCAINE 5% 1 PATCH TD SCH (09:52)
[2023-04-20] MEDS ORDERED: bisacodyL 10 MG SUPP PR ONE (09:56)
[2023-04-20] MEDS ORDERED: bisacodyL 10 MG SUPP PR STA (09:57)
[2023-04-20] MEDS: FAMOTIDINE 20 MG in SYRINGE 3 ML IV SCH ×2 (10:14→20:24)
[2023-04-20] MEDS: POTASSIUM CHLORIDE / WTR 10 MEQ/100 ML PLCT IV SCH ×5 (10:55→16:08)
[2023-04-20] MEDS ORDERED: LIDOCAINE 2% JELLY 5 ML TUBE EXT ONE (11:25)
[2023-04-20] MEDS: METHYLNALTREXONE BROMIDE 12 MG/0.6 ML VIAL SQ SCH (11:54)
--- NOTE | 2023-04-20 13:44 | XRay Report ---
KUB HISTORY: Generalized abdominal pain with constipation severe constipatioin COMPARISON: CT 04/18/2023 FINDINGS: Extensive fecal retention of the right hemicolon and rectosigmoid. There is gaseous distent ion of the large bowel again noted with air filled loops of small bowel. No small bowel obstruction. Herniorrhaphy changes. Bilateral nephrolithiasis redemonstrated. No ureteral calculi. No pneumoperit oneum or pneumatosis. Lumbar levoscoliosis. No fracture. Gastrostomy tube redemonstrated. IMPRESSION: 1. Extensive fecal retention of the ascending colon and rectosigmoid with persistent colonic gaseous distention. 2. Bilateral nephrolithiasis. ACT 112: Negative or not required by law. The above report was generated using voice recognition software. It may contain grammatical, syntax o r spelling errors. Electronically signed by: Geovanni Echeverria M.D. 04/20/2023 1:43 PM
--- NOTE | 2023-04-20 17:45 | Hospitalist Progress Note ---
Date of Service April 20, 2023 Assessment & Plan (1) Acute constipation: Plan: Patient presents with large bowel obstruction with possible diverticulitis or stercoral colitis. Patiently placed on Cipro and Flagyl due to his penicillin allergy We will attempt enemas & disimpaction and cathartic agents to relieve the large stool burden Appreciate general surgery following along still recommending against surgery General surgery request GI consultation, they ordered tap water enemas and bisacodyl with recommendation for relistor again (2) CVA (cerebral vascular accident): Plan: Recent CVA with left hemiparesis PEG tube in place for feeding. Patient takes aspirin, atorvastatin which will be held due to his n.p.o. status The stroke is fairly recent and events Patient is a history of PSVT will check EKG for A-fib it was mentioned in the record at different times patient be allowed chips and sips continue hydration may consider PPN if n.p.o. status is prolonged Plan Patient's other routine medications including Synthroid are held at this time Given recent lumbar compression fractures he will have IV Tylenol Lidoderm patch Patient is a DNR/DNI per emergency room and previous records DVT prevention chemoprophylaxis Admission and Anticipated Discharge Date Admission Date: April 18, 2023 Subjective family updated at bedside patient did have liquid bowel movements his abdomen appears less distended however x-ray confirmation continues to show large bowel obstruction now with ascending colon and significant constipation and some air- filled small bowel loops. General surgery and gastroenterology are following along Physical Exam Physical Exam: The patient appeared chronically ill and remains despondent Vital signs as documented. Head exam is normocephalic atraumatic Neck is without JVD, thyromegaly, or carotid bruits. Lungs are clear to auscultation, no focal loss of breath sounds Cardiac exam, Rhythm is regular.. No murmurs, rubs or gallops. Abdominal exam reveals hypoactive bowel sounds some lessening distention not firm or rigid Extremities are nonedematous and both pedal pulses are present Neurologic exam is alert and oriented, patient is left-sided hemiparesis Results & Data Results & Data Vital Signs (Past 12 Hours) Vital Signs Temp Pulse Resp BP Pulse Ox O2 Del Method 04/20/23 13:46 97.5 F L 84 16 116/70 94 Room Air 04/20/23 07:44 97.3 F L 82 16 114/68 94 Room Air 04/20/23 07:00 Room Air Laboratory Results reviewed chemistry replete potassium magnesium is normal reviewed CBC I personally spoke to gastroenterology PG Care Time/CCT Total # of Minutes Spent Total Time Spent with Patient: Total time spent is greater than 50% in coordination of care (as documented) at patient's floor/unit and/or counseling patient: Coding Level of Care Code 85885 SUB INP/OBS CARE 2/35MIN Diagnoses Acute constipation K59.00 CVA (cerebral vascular accident) I63.9
[2023-04-20] MEDS ORDERED: MINERAL OIL 30 ML UDC GT ONE (18:00)
[2023-04-20] MEDS ORDERED: guaiFENesin SUGAR FREE 100 MG/5 ML UDC PO STA (20:43)
[2023-04-21] MEDS: metroNIDAZOLE 500 MG/100 ML BAG IV SCH ×3 (02:12→19:11)
[2023-04-21] MEDS: SODIUM CHLORIDE 0.9% 1000ML 1,000 ML IV SCH ×2 (05:17→15:45)
[2023-04-21] MEDS: CIPROFLOXACIN / D5W 400 MG/200 ML BAG IV SCH ×2 (06:13→20:18)
[2023-04-21] MEDS: LIDOCAINE 5% 1 PATCH TD SCH (08:55)
[2023-04-21] MEDS: FAMOTIDINE 20 MG in SYRINGE 3 ML IV SCH (08:55)
--- NOTE | 2023-04-21 09:58 | XRay Report ---
KUB HISTORY: Acute generalized abdominal pain with reported constipation eval obstipation COMPARISON: KUB 04/20/2023, CT 04/18/2023 FINDINGS: Extensive fecal retention of the right hemicolon and rectosigmoid. There is gaseous distent ion of the large bowel again noted with air filled loops of small bowel. No small bowel obstruction. Herniorrhaphy changes. Bilateral nephrolithiasis redemonstrated. No ureteral calculi. No pneumoperito neum or pneumatosis. Lumbar levoscoliosis. No fracture. Gastrostomy tube redemonstrated. IMPRESSION: 1. Extensive fecal retention of the ascending colon and rectosigmoid with persistent colonic gaseous distention, stable from yesterday's exam. 2. Bilateral nephrolithiasis. ACT 112: Negative or not required by law. The above report was generated using voice recognition software. It may contain grammatical, syntax o r spelling errors. Electronically signed by: Geovanni Echeverria M.D. 04/21/2023 9:57 AM
[2023-04-21 10:41] LABS: Hematocrit (blood only) 28.9 % (42.0-52.0); Hemoglobin 9.5 g/dl (14.0-18.0); Mean Corpuscular Hemoglobin 29.4 pg (25.0-34.0); Mean Corpuscular Hgb Conc 32.9 g/dL (32.0-36.0); Mean Corpuscular Volume 89.5 fL (80.0-100.0); Mean Platelet Volume 9.8 fL (9.4-12.4); Platelet Count 275 K/uL (130-400); RDW Coefficient of Variation 15.3 % (11.5-14.5); RDW Standard Deviation 50.3 fL (36.4-46.3); Red Blood Count 3.23 M/uL (4.70-6.10); White Blood Count 5.97 K/ul (4.8-10.8)
[2023-04-21 10:47] LABS: Est GFR (African American) 98.3 ml/min; Potassium 2.9 mmol/L (3.5-5.1)
[2023-04-21 10:48] LABS: BUN Creatinine Ratio 34.7 (10-20); Creatinine Clr Calc Pharmacy 69.8 ml/min; Est GFR (Non-African American) 84.8 ml/min
[2023-04-21] MEDS: POTASSIUM CHLORIDE / WTR 10 MEQ/100 ML PLCT IV SCH ×6 (12:03→18:33)
[2023-04-21] MEDS ORDERED: bisacodyL 5 MG TABEC PO ONE (14:12)
--- NOTE | 2023-04-21 14:21 | Hospitalist Progress Note ---
Date of Service April 21, 2023 Assessment & Plan (1) Acute constipation: Plan: Patient presents with large bowel obstruction with possible diverticulitis or stercoral colitis. Patiently placed on Cipro and Flagyl due to his penicillin allergy enemas cleaned out lower colon, still ascending constipation, mineral oil given 04/20, will try miralax 04/21 Appreciate general surgery following along still recommending against surgery General surgery request GI consultation, t recommendation for relistor (2) CVA (cerebral vascular accident): Plan: Recent CVA with left hemiparesis PEG tube in place for feeding. Patient takes aspirin, atorvastatin which will be held due to his n.p.o. status The stroke is fairly recent and events Patient is a history of PSVT will check EKG for A-fib it was mentioned in the record at different times pt still npo, has peg, if good bowel movement consider restart, if not great bowel movement start ppn on 04/22 Plan Patient's other routine medications including Synthroid are held at this time Given recent lumbar compression fractures he will have IV Tylenol Lidoderm patch Patient is a DNR/DNI per emergency room and previous records DVT prevention chemoprophylaxis Admission and Anticipated Discharge Date Admission Date: April 18, 2023 Subjective family updated at bedside patient did have liquid bowel movements his abdomen appears less distended however x-ray confirmation continues to show large bowel stool load in ascending colon/ significant constipation and some air-filled small bowel loops. General surgery is following along, endorse miralax attempt Physical Exam Physical Exam: The patient appeared slightly improved. less abdominal distension and pain Vital signs as documented. Head exam is normocephalic atraumatic Neck is without JVD, thyromegaly, or carotid bruits. Lungs are clear to auscultation, no focal loss of breath sounds Cardiac exam, Rhythm is regular.. No murmurs, rubs or gallops. Abdominal exam reveals increasing bowel sounds and lessening distention Extremities are nonedematous and both pedal pulses are present Neurologic exam is alert and oriented, patient is left-sided hemiparesis Results & Data Results & Data Vital Signs (Past 12 Hours) Vital Signs Temp Pulse Resp BP Pulse Ox O2 Del Method 04/21/23 05:53 98.1 F 81 18 128/50 L 94 Room Air Laboratory Results reviewed cbd reviewed chemistry PG Care Time/CCT Total # of Minutes Spent Total Time Spent with Patient: Total time spent is greater than 50% in coordination of care (as documented) at patient's floor/unit and/or counseling patient: Coding Level of Care Code 91233 SUB INP/OBS CARE 2/35MIN Diagnoses Acute constipation K59.00 CVA (cerebral vascular accident) I63.9
[2023-04-21] MEDS ORDERED: POLYETHYLENE (MIRALAX) 17 GM PACK GT ONE (14:30)
--- NOTE | 2023-04-21 16:43 | Surgery Progress Note ---
Date of Service April 21, 2023 Assessment & Plan (1) Large bowel obstruction: Plan: He has had some return of bowel function with these enemas Medicine is going to try some MiraLAX which I think is reasonable Still no plans for surgery as this would involve a permanent colostomy in this patient (2) Abdominal pain: (3) Fecal impaction: Admission and Anticipated Discharge Date Admission Date: April 18, 2023 Subjective Patient seen and examined. Minimal abdominal pain. Has had some bowel movements. No nausea or vomiting. Review of Systems Constitutional: no fever and no chills Physical Exam Constitutional: WD/WN, vitals as above Gastrointestinal (Abdomen): Inspection/Auscultation: abdomen normal to inspection; abdomen not distended Percussion/Palpation: abdomen soft; abdomen nontender and no guarding Results & Data Vital Signs (Past 12 Hours) Vital Signs Temp Pulse Resp BP Pulse Ox O2 Del Method 04/21/23 15:08 36.6 C 69 16 134/67 94 Room Air 04/21/23 05:53 36.7 C 81 18 128/50 L 94 Room Air PG Care Time/CCT Total # of Minutes Spent Total Time Spent with Patient: Total time spent is greater than 50% in coordination of care (as documented) at patient's floor/unit and/or counseling patient: Coding Level of Care Code 61298 SUB INP/OBS CARE 09/27MIN Diagnoses Large bowel obstruction K56.609 Abdominal pain R10.13 Abdominal location: epigastric Fecal impaction K56.41 (2) Abdominal pain Abdominal location: epigastric Qualified Code(s): R10.13 - Epigastric pain
[2023-04-21] MEDS: PANTOprazole 40 MG in SYRINGE 0 ML IV SCH (20:17)
[2023-04-22] MEDS: metroNIDAZOLE 500 MG/100 ML BAG IV SCH ×3 (03:47→18:05)
[2023-04-22] MEDS: SODIUM CHLORIDE 0.9% 1000ML 1,000 ML IV SCH ×2 (05:58→17:04)
[2023-04-22] MEDS: CIPROFLOXACIN / D5W 400 MG/200 ML BAG IV SCH ×2 (06:01→18:05)
[2023-04-22] MEDS: PANTOprazole 40 MG in SYRINGE 0 ML IV SCH ×2 (08:49→21:19)
[2023-04-22] MEDS: METHYLNALTREXONE BROMIDE 12 MG/0.6 ML VIAL SQ SCH (08:49)
[2023-04-22] MEDS: LIDOCAINE 5% 1 PATCH TD SCH (08:50)
--- NOTE | 2023-04-22 09:40 | Surgery Progress Note ---
Date of Service April 22, 2023 Assessment & Plan (1) Large bowel obstruction: Plan: patient here w/ fecal impaction he has been receiving enema's and started on miralax he is having + bowel function can trial some trickle feeds or clears today Admission and Anticipated Discharge Date Admission Date: April 18, 2023 Supervising Physician Co-Signing Physician Notes I personally saw and evaluated the patient with Augustina Tijerina PA-C and agree with the assessment and plan. 82-year-old male with a fecal impaction and stercoral colitis, slowly improving He has been having some bowel function and is without abdominal pain Can trial clear liquids or trickle feeds and see how he tolerates this Subjective Patient lying in bed. denies pain. currently had a BM Physical Exam Physical Exam: awake Respiratory: normal respiratory effort Gastrointestinal (Abdomen): Percussion/Palpation: abdomen soft; abdomen nontender Results & Data Vital Signs (Past 12 Hours) Vital Signs Temp Pulse Resp BP Pulse Ox O2 Del Method 04/22/23 08:38 36.5 C 66 16 180/75 H 93 Room Air PG Care Time/CCT Total # of Minutes Spent Total Time Spent with Patient: Total time spent is greater than 50% in coordination of care (as documented) at patient's floor/unit and/or counseling patient: Coding Level of Care Code 46826 SUB INP/OBS CARE 09/27MIN Diagnoses Large bowel obstruction K56.609
[2023-04-22 12:55] LABS: Hematocrit (blood only) 33.5 % (42.0-52.0); Hemoglobin 11.1 g/dl (14.0-18.0); Mean Corpuscular Hemoglobin 29.3 pg (25.0-34.0); Mean Corpuscular Hgb Conc 33.1 g/dL (32.0-36.0); Mean Corpuscular Volume 88.4 fL (80.0-100.0); Mean Platelet Volume 9.8 fL (9.4-12.4); Platelet Count 299 K/uL (130-400); RDW Coefficient of Variation 14.9 % (11.5-14.5); RDW Standard Deviation 48.1 fL (36.4-46.3); Red Blood Count 3.79 M/uL (4.70-6.10); White Blood Count 5.85 K/ul (4.8-10.8)
[2023-04-22 13:01] LABS: BUN Creatinine Ratio 23.6 (10-20); Calcium 7.9 mg/dl (8.6-10.3); Creatinine Clr Calc Pharmacy 72.7 ml/min; Est GFR (Non-African American) 86.3 ml/min; Potassium 3.1 mmol/L (3.5-5.1)
[2023-04-22] MEDS ORDERED: POLYETHYLENE (MIRALAX) 17 GM PACK PO ONE (13:48)
--- NOTE | 2023-04-22 16:41 | Hospitalist Progress Note ---
Date of Service April 22, 2023 Assessment & Plan (1) Acute constipation: Plan: Patient presents with large bowel obstruction with possible diverticulitis or stercoral colitis. Patiently placed on Cipro and Flagyl due to his penicillin allergy enemas cleaned out lower colon, still ascending constipation, mineral oil given 04/20, will try miralax 04/21 is having liquid stools we will try additional doses of MiraLAX throughout the day on 821 Appreciate general surgery following along still recommending against surgery General surgery request GI consultation, recommendation for relistor (2) CVA (cerebral vascular accident): Plan: Recent CVA with left hemiparesis PEG tube in place for feeding. Patient takes aspirin, atorvastatin which will be held due to his n.p.o. status The stroke is fairly recent and events Patient is a history of PSVT will check EKG for A-fib it was mentioned in the record at different times pt still npo, has peg, restarting tube feedings on 04/22 tolerating them through 04/23 speech evaluation at bedside still continues to reinforce n.p.o. status Plan Patient's other routine medications including Synthroid are held at this time Given recent lumbar compression fractures continue with scheduled Tylenol Lidoderm patch Patient is a DNR/DNI per emergency room and previous records DVT prevention chemoprophylaxis Admission and Anticipated Discharge Date Admission Date: April 18, 2023 Subjective Patient lying in bed. denies pain. abdomen is flat and soft scaphoid. Tolerating tube feeds escalation will have additional miralax and throughout the day on April 23. X-ray still shows significant stool load in the right side Physical Exam Physical Exam: The patient appeared slightly improved. less abdominal distension and pain Vital signs as documented. Lungs are clear to auscultation, no focal loss of breath sounds Cardiac exam, Rhythm is regular.. No murmurs, rubs or gallops. Abdominal exam reveals increasing bowel sounds and lessening distention Neurologic exam is alert and answers questions, patient is left-sided hemiparesis Results & Data Results & Data Vital Signs (Past 12 Hours) Vital Signs Temp Pulse Resp BP BP Pulse Ox O2 Del Method 04/22/23 14:44 98.1 F 80 16 168/74 H 97 Room Air 04/22/23 08:38 97.7 F 66 16 180/75 H 93 Room Air Laboratory Results reviewed CBC reviewed chemistry PG Care Time/CCT Total # of Minutes Spent Total Time Spent with Patient: Total time spent is greater than 50% in coordination of care (as documented) at patient's floor/unit and/or counseling patient: Coding Level of Care Code 85809 SUB INP/OBS CARE 2/35MIN Diagnoses Acute constipation K59.00 CVA (cerebral vascular accident) I63.9
[2023-04-22] MEDS: TUBE FEEDING WATER FLUSH GT SCH ×3 (16:52→21:19)
[2023-04-22] MEDS: FIBERSOURCE HN 1.2 CAL 1000 ML BAG GT SCH (16:52)
[2023-04-22] MEDS ORDERED: POLYETHYLENE (MIRALAX) 17 GM PACK ONE (17:03)
[2023-04-22] MEDS: POTASSIUM CHLORIDE / WTR 10 MEQ/100 ML PLCT IV SCH ×3 (17:06→19:09)
[2023-04-23] MEDS: SODIUM CHLORIDE 0.9% 1000ML 1,000 ML IV SCH ×3 (00:35→22:42)
[2023-04-23] MEDS: TUBE FEEDING WATER FLUSH GT SCH ×6 (02:50→22:42)
[2023-04-23] MEDS: metroNIDAZOLE 500 MG/100 ML BAG IV SCH ×3 (02:50→18:23)
[2023-04-23] MEDS: CIPROFLOXACIN / D5W 400 MG/200 ML BAG IV SCH ×2 (06:21→18:24)
[2023-04-23] MEDS: PANTOprazole 40 MG in SYRINGE 0 ML IV SCH ×2 (07:55→20:42)
[2023-04-23] MEDS: LIDOCAINE 5% 1 PATCH TD SCH (07:56)
[2023-04-23 08:10] LABS: BUN Creatinine Ratio 20.3 (10-20); Calcium 7.7 mg/dl (8.6-10.3); Creatinine Clr Calc Pharmacy 70.7 ml/min; Est GFR (African American) 98.9 ml/min; Est GFR (Non-African American) 85.3 ml/min; Magnesium 1.8 mg/dl (1.7-2.4); Potassium 2.8 mmol/L (3.5-5.1)
--- NOTE | 2023-04-23 08:17 | Surgery Progress Note ---
Date of Service April 23, 2023 Assessment & Plan (1) Fecal impaction: Plan: It appears his fecal impaction has resolved It does not appear he requires urgent or emergent surgery We will continue with tube feeds as tolerated Admission and Anticipated Discharge Date Admission Date: April 18, 2023 Subjective Patient is responsive He is having multiple loose bowel movements He is tolerating tube feeds Review of Systems Constitutional: no fever and no chills Physical Exam Physical Exam: Patient's abdomen is not distended and relatively soft He does have active bowel sounds No significant tenderness Results & Data Vital Signs (Past 12 Hours) Vital Signs Temp Pulse Resp BP Pulse Ox O2 Del Method 04/23/23 07:35 36.8 C 73 16 133/65 92 Room Air PG Care Time/CCT Total # of Minutes Spent Total Time Spent with Patient: Total time spent is greater than 50% in coordination of care (as documented) at patient's floor/unit and/or counseling patient: Coding Level of Care Code 63107 SUB INP/OBS CARE 25MIN Diagnoses Fecal impaction K56.41
--- NOTE | 2023-04-23 08:42 | XRay Report ---
KUB HISTORY: Acute onset abdominal pain with constipation eval obstipation COMPARISON: 04/21/2023 FINDINGS: Moderate to extensive fecal retention of the right hemicolon and rectosigmoid has mildly im proved. There is decreased gaseous distention of the large bowel again noted with air filled loops of small bowel. No small bowel obstruction. Herniorrhaphy changes. Bilateral nephrolithiasis redemonstr ated. No ureteral calculi. No pneumoperitoneum or pneumatosis. Lumbar levoscoliosis. No fracture. Gas trostomy tube redemonstrated. IMPRESSION: 1. Moderate to extensive fecal retention of the ascending colon and rectosigmoid has mildly improved from the prior exam. 2. Bilateral nephrolithiasis. ACT 112: Negative or not required by law. The above report was generated using voice recognition software. It may contain grammatical, syntax o r spelling errors. Electronically signed by: Geovanni Echeverria M.D. 04/23/2023 8:41 AM
[2023-04-23] MEDS ORDERED: MAGNESIUM SULFATE / D5W 1 GM/100 ML BAG IV ONE (09:00)
[2023-04-23] MEDS: POTASSIUM CHLORIDE / WTR 10 MEQ/100 ML PLCT IV SCH ×4 (10:24→13:08)
[2023-04-23] MEDS: POTASSIUM CHLORIDE 20 MEQ/15 ML UDC GT SCH ×2 (10:31→20:42)
[2023-04-23] MEDS: POLYETHYLENE (MIRALAX) 17 GM PACK GT SCH ×4 (10:31→20:42)
[2023-04-23] MEDS: ACETAMINOPHEN SUSP 1000 MG/31.2 ML UDP GT SCH (20:42)
[2023-04-24] MEDS: metroNIDAZOLE 500 MG/100 ML BAG IV SCH ×3 (02:15→18:08)
[2023-04-24] MEDS: TUBE FEEDING WATER FLUSH GT SCH ×5 (02:19→21:05)
[2023-04-24] MEDS: FIBERSOURCE HN 1.2 CAL 1000 ML BAG GT SCH (05:39)
[2023-04-24] MEDS: CIPROFLOXACIN / D5W 400 MG/200 ML BAG IV SCH ×2 (06:15→18:07)
[2023-04-24] MEDS: LIDOCAINE 5% 1 PATCH TD SCH (08:23)
[2023-04-24] MEDS: POTASSIUM CHLORIDE 20 MEQ/15 ML UDC GT SCH ×2 (08:24→20:30)
[2023-04-24] MEDS: METHYLNALTREXONE BROMIDE 12 MG/0.6 ML VIAL SQ SCH (08:24)
[2023-04-24] MEDS: POLYETHYLENE (MIRALAX) 17 GM PACK GT SCH (08:24)
[2023-04-24] MEDS: PANTOprazole 40 MG in SYRINGE 0 ML IV SCH (08:24)
[2023-04-24] MEDS: ACETAMINOPHEN SUSP 1000 MG/31.2 ML UDP GT SCH ×2 (08:25→20:30)
[2023-04-24] MEDS: SODIUM CHLORIDE 0.9% 1000ML 1,000 ML IV SCH (08:43)
[2023-04-24] MEDS ORDERED: Nursing to Pharmacy Communication SCH (12:30)
--- NOTE | 2023-04-24 18:14 | Hospitalist Progress Note ---
Date of Service April 24, 2023 Assessment & Plan (1) Acute constipation: Plan: Patient presents with large bowel obstruction with possible diverticulitis or stercoral colitis. Patiently placed on Cipro and Flagyl due to his penicillin allergy Multimodal approach at his obstipation have resulted in clinically good results but still some stool load seen on x-ray. Patient however has had significant reduction in his abdominal distention and will likely return back to daily MiraLAX with good attention to bowel distention when he returns to a jail facility Appreciate general surgery following along still recommending against surgery Restarting tube feedings without difficulty did have persistent hypokalemia which has been repleted over time (2) CVA (cerebral vascular accident): Plan: Recent CVA with left hemiparesis PEG tube in place for feeding. Patient takes aspirin, atorvastatin which will be held due to his n.p.o. status The stroke is fairly recent and events Patient is a history of PSVT will check EKG for A-fib it was mentioned in the record at different times pt still npo, has peg, restarting tube feedings on 04/22 tolerating them through 04/23 speech evaluation at bedside still continues to reinforce n.p.o. status Plan Patient's other routine medications including Synthroid are restarted Given recent lumbar compression fractures continue with scheduled Tylenol Lidoderm patch avoiding opioids to avoid obstipation Patient is a DNR/DNI per emergency room and previous records DVT prevention chemoprophylaxis Admission and Anticipated Discharge Date Admission Date: April 18, 2023 Subjective Patient lying in bed. denies pain. abdomen is flat and soft scaphoid. Tolerating tube feeds escalation did have additional miralax and throughout the day on April 23. pt clinically is much improved Physical Exam Physical Exam: The patient appeared improved. less abdominal distension and pain Vital signs as documented. Lungs are clear to auscultation, no focal loss of breath sounds Cardiac exam, Rhythm is regular.. No murmurs, rubs or gallops. Abdominal exam reveals increasing bowel sounds and resolution of distention Neurologic exam is alert and answers questions, patient is left-sided hemiparesis Results & Data Results & Data Vital Signs (Past 12 Hours) Vital Signs Temp Pulse Resp BP Pulse Ox O2 Del Method 04/24/23 16:26 98.2 F 73 18 149/70 H 94 Room Air 04/24/23 07:50 Room Air 08/22/23 07:23 97.9 F 73 18 166/78 H 95 Room Air PG Care Time/CCT Total # of Minutes Spent Total Time Spent with Patient: Total time spent is greater than 50% in coordination of care (as documented) at patient's floor/unit and/or counseling patient: Coding Level of Care Code 01017 SUB INP/OBS CARE 2/35MIN Diagnoses Acute constipation K59.00 CVA (cerebral vascular accident) I63.9
[2023-04-24 18:54] LABS: Calcium 7.4 mg/dl (8.6-10.3); Magnesium 1.8 mg/dl (1.7-2.4)
[2023-04-24 19:00] LABS: BUN Creatinine Ratio 21.5 (10-20); Creatinine Clr Calc Pharmacy 80.5 ml/min; Est GFR (African American) 104.3 ml/min
[2023-04-24] MEDS: DOCUSATE SODIUM SYRUP 100 MG/10 ML UDC PEG SCH (20:30)
[2023-04-24] MEDS: DOCUSATE SODIUM/SENNA 50/8.6MG TAB PO SCH (20:30)
[2023-04-24] MEDS: LANSOPRAZOLE 15 MG SOLTAB PO SCH (20:30)
[2023-04-24] MEDS ORDERED: KETOROLAC TROMETHAMINE 15 MG/ML VIAL IV ONE (21:58)
[2023-04-25] MEDS: TUBE FEEDING WATER FLUSH GT SCH ×6 (00:20→20:39)
[2023-04-25] MEDS: metroNIDAZOLE 500 MG/100 ML BAG IV SCH ×2 (03:04→11:15)
[2023-04-25] MEDS: LEVOTHYROXINE SODIUM 100 MCG TABLET PO SCH (05:18)
[2023-04-25] MEDS: CIPROFLOXACIN / D5W 400 MG/200 ML BAG IV SCH (06:16)
[2023-04-25] MEDS: POTASSIUM CHLORIDE 20 MEQ/15 ML UDC PO SCH ×3 (09:48→20:41)
[2023-04-25] MEDS: DOCUSATE SODIUM/SENNA 50/8.6MG TAB PO SCH ×2 (09:49→20:41)
[2023-04-25] MEDS: LIDOCAINE 5% 1 PATCH TD SCH (09:49)
[2023-04-25] MEDS: ACETAMINOPHEN SUSP 1000 MG/31.2 ML UDP GT SCH ×2 (09:50→20:39)
[2023-04-25] MEDS: DOCUSATE SODIUM SYRUP 100 MG/10 ML UDC PEG SCH ×2 (09:50→20:41)
[2023-04-25] MEDS: LANSOPRAZOLE 15 MG SOLTAB PO SCH ×2 (09:50→20:42)
[2023-04-25] MEDS: ASPIRIN 81 MG CHEW PEG SCH (09:51)
[2023-04-25] MEDS: CYANOCOBALAMIN (B-12) 500 MCG TABLET PEG SCH (09:51)
[2023-04-25] MEDS: CHOLECALCIFEROL 5,000 UNITS 125 MCG TAB PEG SCH (09:51)
[2023-04-25] MEDS: POLYETHYLENE (MIRALAX) 17 GM PACK GT SCH (09:52)
[2023-04-25] MEDS ORDERED: POTASSIUM CHLORIDE 20 MEQ/15 ML UDC PO STA (14:54)
--- NOTE | 2023-04-25 15:19 | Discharge Summary ---
Date of Service April 25, 2023 Admission HPI Per Admitting Provider 82 M resident of [facility], presented with large bowel obstruction with massive constipation. has h/o CVA with left hemiparesis. Pt has peg tube in place and was seen on 04/14 for the dame symptoms, dx with diverticulitis dc on stool softeners, Returns with increased pain CT imaging may also suggest some diverticulitis, with pericolonic fat stranding but this could also be stercoral colitis. Pt had been on opioids due to compression fractures Pt was seen by General surgery and recommended conservative management Principal Diagnosis diverticulitis obstipation hypokalemia likely from diarrhea Discharge Data Allergies Allergy/AdvReac Type Severity Reaction Status Date / Time Penicillins Allergy Severe Swelling Verified 04/06/23 10:23 of Lip/Tongue/Throat Consultations 04/18/23 13:05 ED Decision to Admit Stat 04/18/23 13:49 Consult General Surgery Routine 04/18/23 18:16 Consult Gastroenterology Routine Ordered Studies 04/18/23 10:49 CT abd pelvis IV con only Stat Hospital Course (1) Acute constipation: Patient presents with large bowel obstruction with possible diverticulitis or stercoral colitis. Patiently placed on Cipro and Flagyl due to his penicillin allergy Multimodal approach at his obstipation have resulted in clinically good results but still some stool load seen on x-ray. Patient however has had significant reduction in his abdominal distention and will likely return back to daily MiraLAX with good attention to bowel distention when he returns to a custodial facility Appreciate general surgery following along still recommending against surgery Restarted tube feedings without difficulty did have persistent hypokalemia which has been repleted over time (2) CVA (cerebral vascular accident): Recent CVA with left hemiparesis PEG tube in place for feeding. Patient takes aspirin, atorvastatin which will be held due to his n.p.o. status The stroke is fairly recent and events Patient is a history of PSVT will check EKG for A-fib it was mentioned in the record at different times pt still npo, has peg, restarting tube feedings on 04/22 tolerating them through 04/23 speech evaluation at bedside still continues to reinforce n.p.o. status Plan Patient's other routine medications including Synthroid are restarted Given recent lumbar compression fractures continue with scheduled Tylenol Lidoderm patch avoiding opioids to avoid obstipation Patient is a DNR/DNI per emergency room and previous records Total Time Total Time Spent Total Time Spent (In Minutes): it required greater than 30 minutes to prepare this patient for discharge Discharge Plan Discharge Items Patient Disposition: Transfer [facility] Reason For Visit: STERCORAL COLITIS Discharge Diagnosis: stercoral colitis severe constipation with resolution persistent hypokalemia from diarrhea resultant from cathartics Activity: Resume your previous activity Non-emergency contact: Primary Care Provider Call non-emergency contact if: your symptoms worsen Follow-up/Referrals: Shahid Torres III, MD [Primary Care Provider] - Diet: Other - See Diet Comment Diet Comment: continue tube feeds fibersource HN 60 ml/hr free water 125 ml q 4 hrs Addtl Attending Provider Instructions: patient needed to have significant cathartic agents resulting in loose bowel movements. He had quite a bit of resolution of his symptoms abdominal distention and concern for stercoral colitis however x-rays continue to show some stool retained in his ascending colon subsequently we are going to continue to recommend significant cathartic agents possibly surveillance of abdominal stool retention on a weekly basis for a few weeks and persistent attention paid to his electrolytes with hypokalemia that has resulted from his diarrhea unfortunately opioids probably played some role in his constipation we would like to try to avoid those if possible in the future Pending Studies at Discharge: No Stand-Alone Forms: My [facility] Skilled Items Patient informed of condition?: Yes DNR: Yes Discharge Level of Care: Skilled Communicable Disease: No Discharge Prognosis: Stable Lines: None Urinary Catheter: No Medications and DC Order Prescriptions: New polyethylene glycol 3350 [Miralax] 17 gram Powder In Packet 17 g G-tube DAILY Qty: 30 0RF potassium chloride 20 mEq/15 mL Liquid 40 meq PO BID Qty: 1200 0RF Continued bisacodyl [Dulcolax (bisacodyl)] 10 mg Suppository See Rx Instructions .ROUTE .COMPLEX Rx Instructions: 1 unit one time only for constipation for 2 day per psychiatric arnp. See additional order for tap water enema. If no BM in 4 hours, give tap water enema. Document results. Fleet Enema See Rx Instructions .ROUTE .COMPLEX Rx Instructions: 1 unit as needed for constipation if no BM after Dulcolax atorvastatin 20 mg tablet 40 mg PEG HS levothyroxine 100 mcg tablet 100 mcg PO QAM sennosides-docusate sodium [Senna with Docusate Sodium] 8.6-50 mg Tablet 1 tab-cap PO BID cyanocobalamin (vitamin B-12) 1,000 mcg Tablet 1,000 mcg PO DAILY cholecalciferol (vitamin D3) [Vitamin D3] 125 mcg (5,000 unit) Tablet 125 mcg PO DAILY lidocaine [Lidoderm] 5 % Adhesive Patch,Medicated 1 patch TOPICAL QAM Rx Instructions: apply to lower back in the morning remove at bedtime Biotene Dry Mouth Oral Rinse Mouthwash See Rx Instructions .ROUTE .COMPLEX Rx Instructions: 2 sprays every 12 hours for dry mouth ondansetron 4 mg Tablet,Disintegrating 4 mg PO Q4 PRN (Reason: nausea or vomiting) aspirin [Children's Aspirin] 81 mg Tablet,Chewable 81 mg PEG DAILY Qty: 30 0RF Changed docusate sodium 50 mg/5 mL Liquid 5 ml feeding tube BID Qty: 200 0RF ferrous sulfate 220 mg (44 mg iron)/5 mL Elixir See Rx Instructions .ROUTE .COMPLEX Qty: 473 0RF Rx Instructions: 7.5 ml every other day lansoprazole 15 mg Tablet,Disintegrat, Delay Rel 15 mg feeding tube BID Qty: 30 0RF mirtazapine [Remeron] 15 mg Tablet 15 mg feeding tube HS Qty: 30 0RF acetaminophen 500 mg Tablet 1,000 mg feeding tube TID MDD 3gm apap/24 hours Qty: 30 0RF Discontinued nystatin 100,000 unit/mL Suspension 100,000 unit PO USEASDIRECTD Rx Instructions: 5 ml four times a day for 2 weeks. oxycodone 5 mg Tablet 5 mg PO Q6H PRN (Reason: Pain) Milk of Magnesia 7.75 mg See Rx Instructions .ROUTE .COMPLEX Rx Instructions: 30 ml as needed for constipation after no BM for 3 days metoprolol tartrate 12.5 mg PO Q12H cyclobenzaprine 10 mg Tablet 10 mg PO TID PRN (Reason: Muscle Spasm) Discharge Orders: Discharge Order (Routine); Ordered 04/25/23 Ordered By: Ed Delgado Admission Data Admit Date/Time: 04/18/23 13:48 Attending Provider: Ed Delgado Admit Provider: Ed Delgado Primary Care Provider: Shahid Torres III Other Providers: Ed Delgado ; Domo Roman ; Mary Ann Ward ; [place],[facility] Coding Level of Care Code 11517 INP/OBS DISCH >30 MIN Diagnoses Acute constipation K59.00 CVA (cerebral vascular accident) I63.9
--- NOTE | 2023-04-25 16:45 | Hospitalist Progress Note ---
Date of Service April 25, 2023 Assessment & Plan (1) Acute constipation: Plan: Patient presents with large bowel obstruction with possible diverticulitis or stercoral colitis. Patiently placed on Cipro and Flagyl due to his penicillin allergy Multimodal approach at his obstipation have resulted in clinically good results but still some stool load seen on x-ray. Patient however has had significant reduction in his abdominal distention and will likely return back to daily MiraLAX with good attention to bowel distention when he returns to a correction facility Appreciate general surgery following along still recommending against surgery Restarted tube feedings without difficulty did have persistent hypokalemia which has been repleted over time (2) CVA (cerebral vascular accident): Plan: Recent CVA with left hemiparesis PEG tube in place for feeding. Patient takes aspirin, atorvastatin which will be held due to his n.p.o. status The stroke is fairly recent and events Patient is a history of PSVT will check EKG for A-fib it was mentioned in the record at different times pt still npo, has peg, restarting tube feedings on 04/22 tolerating them through 04/23 speech evaluation at bedside still continues to reinforce n.p.o. status Plan Patient's other routine medications including Synthroid are restarted Given recent lumbar compression fractures continue with scheduled Tylenol Lidoderm patch avoiding opioids to avoid obstipation Patient is a DNR/DNI per emergency room and previous records Admission and Anticipated Discharge Date Admission Date: April 18, 2023 Subjective Patient lying in bed. denies pain. abdomen is flat and soft scaphoid. Tolerating tube feeds escalation did have additional miralax and throughout the day . pt clinically is much improved patient was scheduled to go to correction facility on the however transportation was cancel he will subsequently hopefully going to Physical Exam Physical Exam: The patient appeared improved. less abdominal distension and pain Vital signs as documented. Lungs are clear to auscultation, no focal loss of breath sounds Cardiac exam, Rhythm is regular.. No murmurs, rubs or gallops. Abdominal exam reveals increasing bowel sounds and resolution of distention Neurologic exam is alert and answers questions, patient is left-sided hemiparesis Results & Data Results & Data Vital Signs (Past 12 Hours) Vital Signs Temp Pulse Pulse Resp BP Pulse Ox O2 Del Method 04/25/23 16:04 98.2 F 81 81 20 171/72 H 96 Room Air 04/25/23 07:27 97.5 F L 77 18 146/65 H 94 Room Air PG Care Time/CCT Total # of Minutes Spent Total Time Spent with Patient: Total time spent is greater than 50% in coordination of care (as documented) at patient's floor/unit and/or counseling patient: Coding Level of Care Code 28311 SUB INP/OBS CARE 2/35MIN Diagnoses Acute constipation K59.00 CVA (cerebral vascular accident) I63.9
[2023-04-26] MEDS: TUBE FEEDING WATER FLUSH GT SCH ×3 (04:00→08:59)
[2023-04-26] MEDS: LEVOTHYROXINE SODIUM 100 MCG TABLET PO SCH (05:43)
--- NOTE | 2023-04-26 08:00 | Discharge Summary ---
Date of Service April 26, 2023 Admission HPI Per Admitting Provider 82 M resident of [facility], presented with large bowel obstruction with massive constipation. has h/o CVA with left hemiparesis. Pt has peg tube in place and was seen on 04/14 for the dame symptoms, dx with diverticulitis dc on stool softeners, Returns with increased pain CT imaging may also suggest some diverticulitis, with pericolonic fat stranding but this could also be stercoral colitis. Pt had been on opioids due to compression fractures Pt was seen by General surgery and recommended conservative management Principal Diagnosis Constipation Discharge Exam General: A&Ox3. NAD. Cooperative. HEENT: Atraumatic, normocephalic. Pulm: Symmetrical chest rise. No increased work of breathing. No respiratory distress. Cardiac: RRR, -mrg. Radial pulses intact and symmetrical. Abdominal: No tenderness. Softly distended. BS present. Discharge Data Allergies Allergy/AdvReac Type Severity Reaction Status Date / Time Penicillins Allergy Severe Swelling Verified 04/06/23 10:23 of Lip/Tongue/Throat Consultations 04/18/23 13:05 ED Decision to Admit Stat 04/18/23 13:49 Consult General Surgery Routine 04/18/23 18:16 Consult Gastroenterology Routine Ordered Studies 04/18/23 10:49 CT abd pelvis IV con only Stat Hospital Course (1) Acute constipation: Patient presented with large bowel obstruction with possible diverticulitis or stercoral colitis. Patiently placed on Cipro and Flagyl due to his penicillin allergy Multimodal approach at his obstipation have resulted in clinically good results but still some stool load seen on x-ray. Significant reduction in his abdominal distention and will likely return back to daily MiraLAX with good attention to bowel distention when he [facility] a [facility] Restarted tube feedings without difficulty did have persistent hypokalemia which has been repleted over time (2) CVA (cerebral vascular accident): Recent CVA with left hemiparesis PEG tube in place for feeding. Patient takes aspirin, atorvastatin which were held due to his n.p.o. status The stroke is fairly recent and events Patient argelia a history of PSVT will check EKG for A-fib it was mentioned in the record at different times Pt still npo, has peg, restarting tube feedings on 04/22 tolerating them through 04/23 speech evaluation at bedside still continues to reinforce n.p.o. status. Continue aspirin via PEG Plan Patient's other routine medications including Synthroid are restarted Given recent lumbar compression fractures continue with scheduled Tylenol Lidoderm patch avoiding opioids to avoid obstipation Patient is a DNR/DNI per emergency room and previous records Total Time Total Time Spent Total Time Spent (In Minutes): Time spend day of discharge 15 minutes including direct patient care, documentation, review of labs and images, and coordination of care. Discharge Plan Discharge Items Patient Disposition: Transfer Nursing Home Fac Reason For Visit: STERCORAL COLITIS Discharge Diagnosis: stercoral colitis severe constipation with resolution persistent hypokalemia from diarrhea resultant from cathartics Activity: Resume your previous activity Non-emergency contact: Primary Care Provider Call non-emergency contact if: your symptoms worsen Follow-up/Referrals: Shahid Torres III, MD [Primary Care Provider] - Diet: Other - See Diet Comment Diet Comment: continue tube feeds fibersource HN 60 ml/hr free water 125 ml q 4 hrs Addtl Attending Provider Instructions: patient needed to have significant cathartic agents resulting in loose bowel movements. He had quite a bit of resolution of his symptoms abdominal distention and concern for stercoral colitis however x-rays continue to show some stool retained in his ascending colon subsequently we are going to continue to recommend significant cathartic agents possibly surveillance of abdominal stool retention on a weekly basis for a few weeks and persistent attention paid to his electrolytes with hypokalemia that has resulted from his diarrhea unfortunately opioids probably played some role in his constipation we would like to try to avoid those if possible in the future Pending Studies at Discharge: No Stand-Alone Forms: My [facility] Skilled Items Patient informed of condition?: Yes DNR: Yes Discharge Level of Care: Skilled Communicable Disease: No Discharge Prognosis: Stable Lines: None Urinary Catheter: No Medications and DC Order Prescriptions: New polyethylene glycol 3350 [Miralax] 17 gram Powder In Packet 17 g G-tube DAILY Qty: 30 0RF potassium chloride 20 mEq/15 mL Liquid 40 meq PO BID Qty: 1200 0RF Continued bisacodyl [Dulcolax (bisacodyl)] 10 mg Suppository See Rx Instructions .ROUTE .COMPLEX Rx Instructions: 1 unit one time only for constipation for 2 day per quick mixer operator. See additional order for tap water enema. If no BM in 4 hours, give tap water enema. Document results. Fleet Enema See Rx Instructions .ROUTE .COMPLEX Rx Instructions: 1 unit as needed for constipation if no BM after Dulcolax atorvastatin 20 mg tablet 40 mg PEG HS levothyroxine 100 mcg tablet 100 mcg PO QAM sennosides-docusate sodium [Senna with Docusate Sodium] 8.6-50 mg Tablet 1 tab-cap PO BID cyanocobalamin (vitamin B-12) 1,000 mcg Tablet 1,000 mcg PO DAILY cholecalciferol (vitamin D3) [Vitamin D3] 125 mcg (5,000 unit) Tablet 125 mcg PO DAILY lidocaine [Lidoderm] 5 % Adhesive Patch,Medicated 1 patch TOPICAL QAM Rx Instructions: apply to lower back in the morning remove at bedtime Biotene Dry Mouth Oral Rinse Mouthwash See Rx Instructions .ROUTE .COMPLEX Rx Instructions: 2 sprays every 12 hours for dry mouth ondansetron 4 mg Tablet,Disintegrating 4 mg PO Q4 PRN (Reason: nausea or vomiting) aspirin [Children's Aspirin] 81 mg Tablet,Chewable 81 mg PEG DAILY Qty: 30 0RF Changed docusate sodium 50 mg/5 mL Liquid 5 ml feeding tube BID Qty: 200 0RF acetaminophen 500 mg Tablet 1,000 mg feeding tube TID MDD 3gm apap/24 hours Qty: 30 0RF mirtazapine [Remeron] 15 mg Tablet 15 mg feeding tube HS Qty: 30 0RF lansoprazole 15 mg Tablet,Disintegrat, Delay Rel 15 mg feeding tube BID Qty: 30 0RF ferrous sulfate 220 mg (44 mg iron)/5 mL Elixir See Rx Instructions .ROUTE .COMPLEX Qty: 473 0RF Rx Instructions: 7.5 ml every other day Discontinued nystatin 100,000 unit/mL Suspension 100,000 unit PO USEASDIRECTD Rx Instructions: 5 ml four times a day for 2 weeks. oxycodone 5 mg Tablet 5 mg PO Q6H PRN (Reason: Pain) Milk of Magnesia 7.75 mg See Rx Instructions .ROUTE .COMPLEX Rx Instructions: 30 ml as needed for constipation after no BM for 3 days metoprolol tartrate 12.5 mg PO Q12H cyclobenzaprine 10 mg Tablet 10 mg PO TID PRN (Reason: Muscle Spasm) Discharge Orders: Discharge Order (Routine); Ordered 04/26/23 Ordered By: Ed Delgado Admission Data Admit Date/Time: 04/18/23 13:48 Attending Provider: Lloyd Irby Admit Provider: Ed Delgado Primary Care Provider: Shahid Torres III Other Providers: Ed Delgado ; Domo Roman ; Mary Ann Ward ; [place] Other Interventions: Discharge Summary Assessment (RN) Last Done: 04/26/23 10:02 Coding Level of Care Code 13052 IN/OBS DISCH 30 MIN/LESS Diagnoses Acute constipation K59.00 CVA (cerebral vascular accident) I63.9
[2023-04-26] MEDS: LANSOPRAZOLE 15 MG SOLTAB PO SCH (08:56)
[2023-04-26] MEDS: DOCUSATE SODIUM SYRUP 100 MG/10 ML UDC PEG SCH (08:57)
[2023-04-26] MEDS: POTASSIUM CHLORIDE 20 MEQ/15 ML UDC PO SCH (08:57)
[2023-04-26] MEDS: CHOLECALCIFEROL 5,000 UNITS 125 MCG TAB PEG SCH (08:57)
[2023-04-26] MEDS: DOCUSATE SODIUM/SENNA 50/8.6MG TAB PO SCH (08:58)
[2023-04-26] MEDS: ACETAMINOPHEN SUSP 1000 MG/31.2 ML UDP GT SCH (08:58)
[2023-04-26] MEDS: CYANOCOBALAMIN (B-12) 500 MCG TABLET PEG SCH (08:58)
[2023-04-26] MEDS: ASPIRIN 81 MG CHEW PEG SCH (08:58)
[2023-04-26] MEDS: POLYETHYLENE (MIRALAX) 17 GM PACK GT SCH (08:59)
[2023-04-26] MEDS: LIDOCAINE 5% 1 PATCH TD SCH (08:59)
== END 2023-04-26 10:57 | DRG 389 ==
LOC: ED 10:14 → 3N 13:48 → SUATTDRO 13:48 → 3N 18:47